=== PATIENT | male | born 1950 | race Caucasian/White ===

== ENCOUNTER → 2017-08-26 10:51 | Outpatient (CLI) | payer MEDICARE, OTHER, SELFPAY ==
[2017-08-26 12:47] LABS: Anion Gap 8 (5-15); BUN 17 mg/dL (7-18); BUN/Creat Ratio 16.5 RATIO (10-20); Calcium,Total 9.4 mg/dL (8.5-10.1); Chloride 105 mmol/L (98-107); Creatinine, Serum 1.03 mg/dL (0.70-1.30); EST Glomerular Filtration Rate 77 mL/min (>60); Est Glom Filt Rate - Afr Amer 93 mL/min (>60); Glucose 259 mg/dL (74-106); Potassium 4.2 mmol/L (3.5-5.1); Sodium Level 140 mmol/L (136-145)
[2017-08-26 13:37] LABS: BNP,B-Type NATRIURETIC PEPTIDE 13.6 pg/mL (0-100)
== END ==
PROVIDERS: Family Provider Family Medicine; PCP Family Medicine; Visit Provider Nurse Practitioner Family
DX: R06.02 Shortness of breath (principal); I25.5 Ischemic cardiomyopathy; Z98.61 Coronary angioplasty status
CPT/HCPCS: 36415; 80048; 83880

== ENCOUNTER → 2017-09-09 05:55 | Outpatient (CLI) | payer MEDICARE, OTHER, SELFPAY ==
--- NOTE | 2017-09-09 20:23 | STRESSREP ---
Stress Test Report Date: 09/09/2017 Procedure: Pharmacologic stress nuclear imaging study Indications: Shortness of breath/dyspnea; CAD; PA; PCI Consent: Per the patient Procedure: The patient underwent pharmacologic (Regadenoson) evaluation with a peak heart rate of 104 beats per minute (67 predicted maximal heart rate) and a peak blood pressure of 152/82 mmHg. The baseline ECG demonstrated normal sinus rhythm; possible anterior PA of indeterminate age. The peak pharmacologic ECG demonstrated no obvious ECG changes. There were no cardiac dysrhythmias pretest, during pharmacologic infusion, or recovery. There was no complaint of chest discomfort during pharmacologic infusion or recovery. The examination was discontinued secondary to completion of protocol. Impression: 1. Pharmacologic (Regadenoson) evaluation 2. Peak pharmacologic ECG with no obvious ECG changes. 3. There were no cardiac dysrhythmias pretest, during pharmacologic infusion, or recovery 4. Nuclear images pending Myocardial perfusion imaging study: Technique: The patient was injected with 14.7 millicuries of technetium 99m Cardiolite and subsequently rest SPECT Cardiolite nuclear imaging was obtained in the horizontal long, vertical long, and short axis views. The patient underwent pharmacologic (Regadenoson) evaluation with a peak heart rate of 104 beats per minute (67 % percent predicted maximal heart rate) and a peak blood pressure of 152/82 mmHg. The patient was injected with 44.9 millicuries of technetium 99m Cardiolite and subsequently stress SPECT Cardiolite nuclear imaging was obtained in the horizontal long, vertical long, and short axis views. A gated Cardiolite study at peak stress was obtained. Interpretation: Rest and stress SPECT Cardiolite nuclear imaging status post realignment, normalization, and attenuation correction demonstrate the appearance of diminished absence of myocardial perfusion/tracer uptake in portions of the mid to distal anterior, mid to distal anteroseptal, anteroapical, septal apical, and lateral apical segments without significant change between rest and stress. There is diminished end systolic thickening and brightening in the aforementioned areas. The gated Cardiolite study demonstrates diminished myocardial thickening and inward wall motion in the aforementioned areas. The reported LVEF is 36 %. Impression: 1. Rest and stress SPECT Cardiolite nuclear imaging demonstrate myocardial perfusion changes compatible with an area of previous myocardial injury/infarction with no myocardial perfusion changes consider diagnostic for associated stress-induced myocardial ischemia. 2. The gated Cardiolite study reports an LVEF of 36%. This note was generated with [employer] software. It may contain incorrect words, spelling, and punctuation that were not noted in checking the note before signing.
--- NOTE | 2017-09-09 20:31 | STRESSREP_ITS ---
Stress Test Report Date: 09/09/2017 Procedure: Pharmacologic stress nuclear imaging study Indications: Shortness of breath/dyspnea; CAD; RI; PCI Consent: Per the patient Procedure: The patient underwent pharmacologic (Regadenoson) evaluation with a peak heart rate of 104 beats per minute (67 predicted maximal heart rate) and a peak blood pressure of 152/82 mmHg. The baseline ECG demonstrated normal sinus rhythm; possible anterior RI of indeterminate age. The peak pharmacologic ECG demonstrated no obvious ECG changes. There were no cardiac dysrhythmias pretest, during pharmacologic infusion, or recovery. There was no complaint of chest discomfort during pharmacologic infusion or recovery. The examination was discontinued secondary to completion of protocol. Impression: 1. Pharmacologic (Regadenoson) evaluation 2. Peak pharmacologic ECG with no obvious ECG changes. 3. There were no cardiac dysrhythmias pretest, during pharmacologic infusion, or recovery 4. Nuclear images pending Myocardial perfusion imaging study: Technique: The patient was injected with 14.7 millicuries of technetium 99m Cardiolite and subsequently rest SPECT Cardiolite nuclear imaging was obtained in the horizontal long, vertical long, and short axis views. The patient underwent pharmacologic (Regadenoson) evaluation with a peak heart rate of 104 beats per minute (67 % percent predicted maximal heart rate) and a peak blood pressure of 152/82 mmHg. The patient was injected with 44.9 millicuries of technetium 99m Cardiolite and subsequently stress SPECT Cardiolite nuclear imaging was obtained in the horizontal long, vertical long, and short axis views. A gated Cardiolite study at peak stress was obtained. Interpretation: Rest and stress SPECT Cardiolite nuclear imaging status post realignment, normalization, and attenuation correction demonstrate the appearance of diminished absence of myocardial perfusion/tracer uptake in portions of the mid to distal anterior, mid to distal anteroseptal, anteroapical, septal apical, and lateral apical segments without significant change between rest and stress. There is diminished end systolic thickening and brightening in the aforementioned areas. The gated Cardiolite study demonstrates diminished myocardial thickening and inward wall motion in the aforementioned areas. The reported LVEF is 36 %. Impression: 1. Rest and stress SPECT Cardiolite nuclear imaging demonstrate myocardial perfusion changes compatible with an area of previous myocardial injury/ infarction with no myocardial perfusion changes consider diagnostic for associated stress-induced myocardial ischemia. 2. The gated Cardiolite study reports an LVEF of 36%. This note was generated with [employer] netation software. It may contain incorrect words, spelling, and punctuation that were not noted in checking the note before signing.
== END ==
PROVIDERS: Family Provider Family Medicine; PCP Family Medicine; Visit Provider Nurse Practitioner Family
DX: I25.5 Ischemic cardiomyopathy (principal); R06.02 Shortness of breath; Z98.61 Coronary angioplasty status
CPT/HCPCS: 78452; 93017; A9500; A4216; J2785

== ENCOUNTER → 2017-09-17 08:57 | Outpatient (CLI) | payer MEDICARE, OTHER, SELFPAY ==
--- NOTE | 2017-09-17 08:57 | DT_ITS ---
This patient was seen during an EMR downtime September 15, 2017 - September 22, 2017. This patient may have a combination of paper and electronic documentation or all paper documentation. All documentation is viewable within the e-chart portion of [facility] for each patient visit.
--- NOTE | 2017-09-17 08:57 | DT_ITS ---
This patient was seen during an EMR downtime September 15, 2017 - September 22, 2017. This patient may have a combination of paper and electronic documentation or all paper documentation. All documentation is viewable within the e-chart portion of [facility] for each patient visit.
[2017-09-22 04:15] LABS: Basophil% 0.4 % (0-1); Eosinophils% 3.9 % (0-5); Hematocrit 42.8 % (40-54); Hemoglobin 14.6 g/dl (13.0-16.5); Lymphocyte % 18.5 % (19-41); Mean Corp Hgb Conc 34.1 g/gl (32-36); Mean Corpuscular Hgb 29.6 pg (27.0-32.0); Mean Corpuscular Volume 86.6 fL (80-94); Mean Platelet Vol. 10.2 fl (6.2-12.0); Monocyte% 15.8 % (0-10); Neutrophil % 61.3 % (47-70); POSITIVE COUNT NO; POSITIVE DIFFERENTIAL NO; POSITIVE MORPHOLOGY NO; Platelet Count 232 K/mm3 (150-450); RBC Distribution Width SD 43.9 fl (35.1-43.9); Red Blood Count 4.94 M/mm3 (4.6-6.2); White Blood Count 7.4 K/mm3 (4.4-11.0)
[2017-09-22 04:16] LABS: Absolute Lymphocyte Count 1.36 X10^3/ul (0.83-4.51); Absolute Neutrophil Count 4.5 X10^3/uL (2.0-7.7); Lymphocyte # 1.36 X10^3/ul (4.0)
[2017-09-22 08:18] LABS: Hemoglobin A1c 8.5 % (4.2-6.3)
[2017-09-22 08:22] LABS: Microalbumin,Random Urine 76.3 mg/L (NO RANGE EST.)
[2017-09-22 08:23] LABS: AST(SGOT) 20 U/L (15-37); Alanine Aminotransfer ALT/SGPT 43 U/L (16-61); Albumin, Serum 3.5 g/dL (3.2-5.0); Alkaline Phosphatase 103 U/L (45-117); Anion Gap 9 (5-15); BUN 16 mg/dL (7-18); BUN/Creat Ratio 16.5 RATIO (10-20); Calcium,Total 8.7 mg/dL (8.5-10.1); Chloride 106 mmol/L (98-107); Cholesterol 91 mg/dL (200); Creatinine, Serum 0.97 mg/dL (0.70-1.30); EST Glomerular Filtration Rate 82 mL/min (>60); Est Glom Filt Rate - Afr Amer 99 mL/min (>60); Globulin 3.5 g/dL (2.2-4.2); Glucose 118 mg/dL (74-106); Potassium 3.9 mmol/L (3.5-5.1); Sodium Level 143 mmol/L (136-145); Triglycerides 159 mg/dL; Very Low Density Lipoprotein 32 mg/dL (5-40)
[2017-09-22 08:24] LABS: High Density Lipoprotein 27 mg/dL
== END ==
PROVIDERS: Family Provider Family Medicine; PCP Family Medicine; Visit Provider Family Medicine
DX: E11.29 Type 2 diabetes mellitus with other diabetic kidney complication (principal); E78.5 Hyperlipidemia, unspecified
CPT/HCPCS: 36415; 80053; 80061; 82043; 82570; 83036; 85025

== ENCOUNTER → 2018-04-02 10:44 | Outpatient (CLI) | payer MEDICARE, OTHER, SELFPAY ==
[2018-03-26 11:35] VITALS: BMI 39.3
--- NOTE | 2018-04-02 10:46 | ECHOCS_ITS ---
Reason For Study: dyspnea/SOB Procedure This was a 2D Doppler, Color Flow transthoracic echocardiogram. The study was technically difficult. Contrast injection was performed. Left Ventricle Normal LV size. Mild segmental systolic dysfunction (see wall motion). The estimated ejection fraction is 40 %. Mid-Anterior : Hypokinetic. Mid-Lateral : Hypokinetic. Mid-Posterior: Hypokinetic. Mid-Inferior: Hypokinetic. Mid-inferoseptal : Akinetic. Mid-anteroseptal : Hypokinetic. [place] : Akinetic. Right Ventricle Normal RV size. Normal systolic function. Atria The left atrium is mildly enlarged. Normal right atrium. No doppler evidence for ASD. Mitral Valve There is mild mitral annular calcification. Normal mitral valve. Trivial mitral valve insufficiency. Tricuspid Valve Normal tricuspid valve. Trivial tricuspid valve insufficiency. Unable to estimate RV systolic pressure/pulmonary artery pressure due to technically difficult study. Aortic Valve Trisinus/trileaflet aortic valve. Mild diffuse aortic valve calcification. Pulmonic Valve The pulmonic valve is not well visualized. Great Vessels Normal sized aortic root. Pericardium/Pleural No pericardial effusion. Medication 22 gauge I.V. with prn adaptor inserted into left arm. Diluted definity 3.0ml given slow IV push to enhance endocardial definition. MMode/2D Measurements & Calculations LVIDd: 5.2 cm IVSd: 1.4 cm Ao root diam: 3.5 cm LVIDs: 4.1 cm LVPWd: 1.1 cm RVDd: 4.3 cm FS: 21.0 % LAV(MOD-bp): 77.5 ml LA A4 area: 23.4 cm2 LA dimension(2D): 4.5 cm LAV(MOD-bp) Indexed: 32.5 ml/m2 LAV(MOD-sp2): 75.4 ml LAV(MOD-sp4): 77.9 ml RA A4 area: 20.7 cm2 Time Measurements MV dec time: 0.22 sec Doppler Measurements & Calculations MV E max yuri: 126.7 cm/sec Lat Peak E' Yuri: 7.9 cm/sec Med Peak E' Yuri: 8.1 cm/sec MV A max yuri: 96.2 cm/sec E/E' lat: 16.0 E/E' med: 15.7 MV E/A: 1.3 Ao V2 max: 207.5 cm/sec LV V1 max: 135.8 cm/sec PA V2 max: 103.8 cm/sec Ao max P.2 mmHg LV V1 max P.4 mmHg Ao V2 mean: 151.2 cm/sec LV V1 mean P.0 mmHg Ao mean P.1 mmHg LV V1 mean: 94.6 cm/sec Ao V2 VTI: 42.2 cm LV V1 VTI: 27.2 cm Interpretation Summary The study was technically difficult. Contrast injection was performed. Mild segmental systolic dysfunction (see wall motion). The estimated ejection fraction is 40 %. The left atrium is mildly enlarged. There is mild mitral annular calcification. Trivial mitral valve insufficiency. Trivial tricuspid valve insufficiency. Mild diffuse aortic valve calcification. Unable to estimate RV systolic pressure/pulmonary artery pressure due to technically difficult study. Transmitral diastolic flow velocities suggest diastolic dysfunction (pseudonormal pattern). Ordering Physician: Jaspreet Rubalcava Referring Physician: Mau Tovar Performed By: Mariia Diana RDCS, RVT
== END ==
PROVIDERS: Family Provider Family Medicine; PCP Family Medicine; Referring Provider Internal Medicine Cardiovascular Disease; Visit Provider Internal Medicine Cardiovascular Disease
DX: I50.22 Chronic systolic (congestive) heart failure (principal)
CPT/HCPCS: 93306; Q9957; A4216; C8929

== ENCOUNTER → 2018-09-24 10:32 | Outpatient (CLI) | payer MEDICARE, OTHER, SELFPAY ==
[2018-03-26 11:35] VITALS: BMI 39.3
[2018-09-24 12:03] LABS: Absolute Lymphocyte Count 1.11 X10^3/ul (0.83-4.51); Absolute Neutrophil Count 3.2 X10^3/uL (2.0-7.7); Basophil# 0.02 X10^3/uL; Basophil% 0.4 % (0-1); Eosinophil# 0.22 X10^3/uL; Eosinophils% 4.5 % (0-5); Hematocrit 43.4 % (40-54); Hemoglobin 14.8 g/dl (13.0-16.5); Lymphocyte # 1.11 X10^3/ul (4.0); Lymphocyte % 22.7 % (19-41); Mean Corp Hgb Conc 34.1 g/gl (32-36); Mean Corpuscular Hgb 28.5 pg (27.0-32.0); Mean Corpuscular Volume 83.6 fL (80-94); Mean Platelet Vol. 10.8 fl (6.2-12.0); Monocyte# 0.36 X10^3/uL; Monocyte% 7.4 % (0-10); Neutrophil # 3.16 X10^3/uL (2.7-7.7); Neutrophil % 64.8 % (47-70); Platelet Count 236 K/mm3 (150-450); RBC Distribution Width CV 13.6 % (11.6-14.6); Red Blood Count 5.19 M/mm3 (4.6-6.2); White Blood Count 4.9 K/mm3 (4.4-11.0)
[2018-09-24 12:18] LABS: POSITIVE COUNT NO; POSITIVE DIFFERENTIAL NO; POSITIVE MORPHOLOGY NO
[2018-09-24 12:19] LABS: Microalbumin,Random Urine 46.2 mg/L (NO RANGE EST.); Microalbumin:Creatinine Ratio 34.5 mg/g CRE (<30 mg/g CRE)
[2018-09-24 12:42] LABS: ALB/GLOB Ratio 1.2 RATIO (0.9-2.4); AST(SGOT) 17 U/L (15-37); Alanine Aminotransfer ALT/SGPT 37 U/L (16-61); Albumin, Serum 3.8 g/dL (3.2-5.0); Alkaline Phosphatase 123 U/L (45-117); Anion Gap 4 (5-15); BUN 18 mg/dL (7-18); BUN/Creat Ratio 18.1 RATIO (10-20); Calcium,Total 9.3 mg/dL (8.5-10.1); Chloride 106 mmol/L (98-107); Cholesterol 96 mg/dL (200); EST Glomerular Filtration Rate 79 mL/min (>60); Est Glom Filt Rate - Afr Amer 96 mL/min (>60); Globulin 3.2 g/dL (2.2-4.2); Glucose 244 mg/dL (74-106); High Density Lipoprotein 26 mg/dL; PSA,Total - Annual Screen 7.56 ng/mL (0.00-4.00); Potassium 3.7 mmol/L (3.5-5.1); Sodium Level 137 mmol/L (136-145); Triglycerides 150 mg/dL; Very Low Density Lipoprotein 30 mg/dL (5-40)
[2018-09-24 13:05] LABS: Hemoglobin A1c 9.1 % (4.2-6.3)
== END ==
PROVIDERS: Family Provider Family Medicine; PCP Family Medicine; Referring Provider Family Medicine; Visit Provider Family Medicine
DX: E11.3299 Type 2 diabetes mellitus with mild nonproliferative diabetic retinopathy without macular edema, unspecified eye (principal); E11.65 Type 2 diabetes mellitus with hyperglycemia; I25.10 Atherosclerotic heart disease of native coronary artery without angina pectoris; Z12.5 Encounter for screening for malignant neoplasm of prostate
CPT/HCPCS: 36415; 80053; 80061; 82043; 82570; 83036; 84153; 85025; G0103

== ENCOUNTER → 2018-10-01 15:25 | Outpatient (CLI) | payer MEDICARE, OTHER, SELFPAY ==
[2018-10-01 11:16] VITALS: BMI 39.3
--- NOTE | 2018-10-01 15:29 | RAD_ITS ---
HISTORY: left lumbar radiculopathy, mostly when in the sitting position TECHNIQUE: Lumbar spine 5 views Number of images including paperwork: 5 COMPARISON: None FINDINGS: VERTEBRAE: No acute fracture. VERTEBRAL ALIGNMENT: No traumatic subluxation. DISKS AND JOINTS: No significant discogenic degenerative changes. Facet arthropathy. SOFT TISSUES: Unremarkable paraspinous soft tissues. Multiple right renal calculi measuring up to 13 mm in size. Possible left renal calculi. RAD/L/S Spine Min 4 Views IMPRESSION: 1. No acute osseous abnormality. 2. Degenerative changes. 3. Renal calculi. at 0751 Reported and signed by: Pati Adrian MD Electronically Signed: Pati Adrian MD at 7:51 EDT Tel , Service support ,
== END ==
PROVIDERS: Family Provider Family Medicine; PCP Family Medicine; Referring Provider Family Medicine; Visit Provider Family Medicine
DX: M54.16 Radiculopathy, lumbar region (principal)
CPT/HCPCS: 72110

== ENCOUNTER → 2019-02-12 15:45 | Outpatient (CLI) | payer MEDICARE, OTHER, SELFPAY ==
[2018-10-01 11:16] VITALS: BMI 39.3
--- NOTE | 2019-02-12 15:50 | RAD_ITS ---
STUDY: X-RAY - LEFT ANKLE REASON FOR EXAM: Male, 68 years old. Injury. Pain. TECHNIQUE: 3 view(s) of the ankle. COMPARISON: None. FINDINGS: There is no evidence of fracture or dislocation. There are mild degenerative changes. There are no radiodense foreign bodies. RAD/Ankle min 3 Views IMPRESSION: No fracture or dislocation in the left ankle. Mild degenerative change. Electronically Signed: Kavon Mcmahon, at 16:03 EDT Tel , Service support ,
== END ==
PROVIDERS: Family Provider Family Medicine; PCP Family Medicine; Referring Provider Family Medicine; Visit Provider Family Medicine
DX: M25.572 Pain in left ankle and joints of left foot (principal)
CPT/HCPCS: 73610

== ENCOUNTER → 2019-11-23 08:33 | Outpatient (CLI) | payer MEDICARE, OTHER, SELFPAY ==
[2019-09-30 14:27] VITALS: BMI 39.9
[2019-11-23 10:11] LABS: AST(SGOT) 21 U/L (15-37); Alanine Aminotransfer ALT/SGPT 48 U/L (16-61); Albumin, Serum 3.4 g/dL (3.2-5.0); Alkaline Phosphatase 139 U/L (45-117); Bilirubin, Direct 0.15 mg/dL (0.00-0.30); Cholesterol 101 mg/dL (200); Globulin 3.5 g/dL (2.2-4.2); High Density Lipoprotein 26 mg/dL; Protein, Total 6.9 g/dL (6.4-8.2); Triglycerides 110 mg/dL; Very Low Density Lipoprotein 22 mg/dL (5-40)
== END ==
PROVIDERS: PCP Family Medicine; Referring Provider Internal Medicine Cardiovascular Disease; Visit Provider Internal Medicine Cardiovascular Disease
DX: E78.00 Pure hypercholesterolemia, unspecified (principal)
CPT/HCPCS: 36415; 80061; 80076

== ENCOUNTER 2019-11-25 15:13 | Emergency (ER) | payer MEDICARE, OTHER, SELFPAY ==
[2019-09-30 14:27] VITALS: BMI 39.9
[2019-11-25 15:16] VITALS: BP 145/80; PULSE 83; RESP 18; TEMP 36.4; O2SAT 96; BMI 41.3
--- NOTE | 2019-11-25 16:06 | RAD_ITS ---
STUDY: X-RAY CHEST REASON FOR EXAM: Male, 69 years old. ANXIETY, SWEATING. PREVIOUS [place]. LOW BLOOD SUGAR THIS MORNING. TECHNIQUE: 1 view COMPARISON: Prior chest radiograph of 03/21/2015 FINDINGS: The lungs are clear and expanded. There is no demonstrated pleural abnormality. Normal size heart. Normal mediastinum and fanta. Normal visualized pulmonary arteries. Normal visualized aortic arch and descending thoracic aorta. Normal visualized thoracic spine. Normal visualized ribs, clavicles, and shoulders. There is no demonstrated abnormality of the visualized soft tissue structures of the upper abdomen. RAD/Chest 1 View (Portable) IMPRESSION: No acute cardiopulmonary findings or changes. Negative for new consolidation, focal atelectasis, cardiomegaly or pleural effusion. Electronically Signed: Mojgan Alex MD at 16:39 EDT , Service support ,
--- NOTE | 2019-11-25 16:06 | EKG12_ITS ---
Test Reason : CP Blood Pressure : / mmHG Vent. Rate : 079 BPM Atrial Rate : 079 BPM P-R Int : 210 ms QRS Dur : 084 ms QT Int : 366 ms P-R-T Axes : 040 020 051 degrees QTc Int : 419 ms Sinus rhythm with 1st degree A-V block Low voltage QRS Septal infarct (cited on or before 01-JUN-2012) Abnormal ECG Confirmed by TERESA CALDERON ([id number]), graphic editor ANA LANGLEY ([id number]) on 11/29/2019 2:11:11 PM Referred By: EVELIN Confirmed By:TERESA CALDERON
--- NOTE | 2019-11-25 16:30 | ED.VIS.GEN ---
History of Present Illness Chief Complaint: Chest Other Informant: Patient Narrative: Patient is a 69-year-old male who presents to the emergency department for anxiety and diaphoresis. Started earlier this morning. He states the only other time he had this happen was when he had his previous heart attack 14 years ago. He states he has had multiple stents placed. He does have history of diabetes and thought maybe his blood sugar was low and was in the 50s. His symptoms persisted despite eating so he was concerned and came to the ED. He denies any chest pain, shortness of breath or heart palpitations. Denies any leg swelling or calf pain. No abdominal pain or nausea/vomiting. He denies any recent illnesses including any cough, cold, congestion. No fevers or chills. Denies a smoking history. Past Medical History - Allergies and Home Meds Allergies/Adverse Reactions: Allergies No Known Allergies Allergy (Verified 11/25/19 15:14) Primary Care Physician: Mau Tovar DO [Primary Care Provider] - As soon as possible Prior records reviewed: Yes Past Medical History: - - CAD, hypertension, hyperlipidemia, diabetes Surgical History: angioplasty - With stenting ?2 events: Total of 8 stents, - - Laser treatment to retinal bleed due to diabetic retinopathy Smoking Status: Never smoker - Family History Paternal Family History: Family History (Last Reviewed 09/30/19 @ 14:30 by Fany Arciniega) Father Myocardial infarction Family History: Reports: Heart Disease Maternal Family History: Family History (Last Reviewed 09/30/19 @ 14:30 by Fany Arciniega) Father Myocardial infarction Family History: Reports: No pertinent history Review of Systems All systems negative except as indicated General: Reports: Sweats. Denies: Chills, Fever Eyes: Denies: Visual changes - bilaterally, Diplopia ENT: Denies: Rhinorrhea, Sore throat Cardiovascular: Denies: Chest pain, Palpitations Respiratory: Denies: Dyspnea, Cough, Dyspnea on exertion Gastrointestinal: Denies: Abdominal pain, Nausea, Vomiting, Diarrhea Genitourinary: Denies: Dysuria, Hematuria, Frequency Musculoskeletal: Denies: Back pain, Extremity Pain Skin: Denies: Rash, Wounds Neurological: Denies: Headache, Weakness, Numbness Psych: Reports: Anxiety Physical Exam Vital Signs/Narrative: Vital Signs Temp Pulse Resp BP Pulse Ox 11/25/19 15:16 97.6 F L 83 18 145/80 H 96 Inital Vital Signs reviewed: Yes General: Well nourished, Well developed, No Acute Distress Head: Normocephalic, Atraumatic Eyes: Perrl, EOMI ENT: Moist mucous membranes, No rhinorrhea Neck: Supple, Nontender Cardiovascular: Regular rate, Regular rhythm, No murmurs Respiratory: No distress, CTA bilaterally, Chest nontender Abdomen: Soft, Nontender, Nondistended, Normal bowel sounds Back: Nontender, Normal Inspection Extremities: Nontender, Edema - Trace bilateral. Negative for: Calf Tenderness Skin: Normal color, No rash Neurological: Alert, Oriented x3, Cranial nerves II-XII grossly intact, Normal Strength, Normal Sensation Psychological: Normal affect, Normal Mood Diagnostic/Tx/Re-eval - EKG Initial EKG Interpretation: - - Rate of 79 bpm and normal sinus rhythm. [place] interval calculated 210 ms with a first-degree AV block. Otherwise normal intervals. Normal axis. No significant ST elevations or depressions. No T wave abnormalities. - Medical Decision Making Patient presents to the ED for anxiety and sweating. He was concerned as he had similar symptoms with a previous heart attack. Upon arrival to the ED vital signs within normal limits. He is in no acute distress. EKG obtained which did not show any signs of ischemia or arrhythmia. Will obtain basic lab work along with chest x-ray. Lab work did not reveal any significant acute abnormality. Initial troponin negative. X-ray does not show any acute cardiopulmonary abnormality. EKG did not show any signs of ischemia or arrhythmia. I did discuss all this with the patient. I did offer the patient hospitalization as he states that this is similar to his previous ND symptoms although he does not have any chest pain or shortness of breath. He is no longer diaphoretic. I believe that the first troponin would have caught a non-STEMI as a symptoms started many hours ago earlier this morning. Patient does feel like he wants to go home at this time as he believes it might just be anxiety related this time. He states he will come back to the ED if he develops any worsening or concerning symptoms. He is going to call his PCP today for close follow-up. I believe that he does warrant a stress test. I did advise patient to continue taking his aspirin. He understands and is agreeable this plan. Will discharge home in stable condition. ED Disposition - Plan for ED Patient: Disposition: Home or Assisted Living Diagnosis: Anxious reaction Instructions: ED Stress React Referrals: Mau Tovar DO [Primary Care Provider] - As soon as possible
[2019-11-25 16:34] LABS: Absolute Lymphocyte Count 1.13 X10^3/uL (0.83-4.51); Absolute Neutrophil Count 6.4 X10^3/uL (2.0-7.7); Basophil# 0.03 X10^3/uL; Basophil% 0.3 % (0-1); Eosinophils% 3.4 % (0-5); Hematocrit 43.3 % (40-54); Hemoglobin 14.2 g/dL (13.0-16.5); Lymphocyte # 1.13 X10^3/ul (4.0); Lymphocyte % 12.8 % (19-41); Mean Corp Hgb Conc 32.8 g/dL (32-36); Mean Corpuscular Volume 88.4 fL (80-94); Mean Platelet Vol. 10.4 fl (6.2-12.0); Monocyte# 0.88 X10^3/uL; NRBC Flagged by Analyzer 0 % (0-5); Neutrophil # 6.43 X10^3/uL (2.7-7.7); Neutrophil % 73.2 % (47-70); Platelet Count 253 K/mm3 (150-450); RBC Distribution Width CV 13.4 % (11.6-14.6); RBC Distribution Width SD 43.5 fl (35.1-43.9); White Blood Count 8.8 K/mm3 (4.4-11.0)
[2019-11-25 16:47] LABS: Anion Gap 3 (5-15); BUN 12 mg/dL (7-18); BUN/Creat Ratio 11.8 RATIO (10-20); Calcium,Total 9.6 mg/dL (8.5-10.1); Chloride 107 mmol/L (98-107); Creatinine, Serum 1.02 mg/dL (0.70-1.30); EST Glomerular Filtration Rate 77 mL/min (>60); Est Glom Filt Rate - Afr Amer 93 mL/min (>60); Estimated Creatinine Clearance 70.57 ml/min; Glucose 238 mg/dL (74-106); Potassium 4.6 mmol/L (3.5-5.1); Sodium Level 139 mmol/L (136-145)
[2019-11-25 17:26] VITALS: BP 137/78; PULSE 78; RESP 19
== END 2019-11-25 17:27 | disposition home or self-care (01) ==
PROVIDERS: Emergency Provider Emergency Medicine; PCP Family Medicine
DX: F41.9 Anxiety disorder, unspecified (principal); E78.5 Hyperlipidemia, unspecified; I10 Essential (primary) hypertension; I25.10 Atherosclerotic heart disease of native coronary artery without angina pectoris; I25.2 Old myocardial infarction; I44.0 Atrioventricular block, first degree; Z82.49 Family history of ischemic heart disease and other diseases of the circulatory system; E11.319 Type 2 diabetes mellitus with unspecified diabetic retinopathy without macular edema
CPT/HCPCS: 71045; 80048; 84484; 85025; 93005; 99285; A4216

== ENCOUNTER → 2020-01-18 06:47 | Outpatient (CLI) | payer MEDICARE, OTHER, SELFPAY ==
[2019-12-29 15:35] VITALS: BMI 39.9
--- NOTE | 2020-01-18 06:49 | ECHOCS_ITS ---
Reason For Study: CAD/ASHD Procedure This was a 2D Doppler, Color Flow transthoracic echocardiogram. The study was technically difficult. Contrast injection was performed. Exam performed in department. Left Ventricle Mild segmental systolic dysfunction (see wall motion). The estimated ejection fraction is 45 %. Diastolic function is indeterminate. Mid-Anterior : Hypokinetic. Mid-Lateral : Hypokinetic. Mid- Posterior: Hypokinetic. Mid-Inferior: Hypokinetic. Mid-inferoseptal : Akinetic. Mid-anteroseptal : Akinetic. Anterior [place] : Hypokinetic. Inferior [place] : Akinetic. Lateral [place] : Hypokinetic. Septal [place] : Akinetic. Right Ventricle Normal RV size. Normal systolic function. Atria The left atrium is mildly enlarged. Normal right atrium. No doppler evidence for ASD. Mitral Valve There is mild mitral annular calcification. Normal mitral valve. Mild (1+) eccentric mitral valve insufficiency. Tricuspid Valve Normal tricuspid valve. Trivial tricuspid valve insufficiency. Unable to estimate RV systolic pressure/pulmonary artery pressure due to technically difficult study. Aortic Valve Trisinus/trileaflet aortic valve. Mild diffuse aortic valve calcification. Mild aortic stenosis. Pulmonic Valve The pulmonic valve is not well visualized. Great Vessels Normal sized aortic root. Calcified aortic root. Pericardium/Pleural No pericardial effusion. Medication 22 gauge I.V. with prn adaptor inserted into left arm. Diluted definity 4ml given slow IV push to enhance endocardial definition. MMode/2D Measurements & Calculations LVOT diam: 2.0 cm Ao root diam: 3.4 cm LAV(MOD-bp): 71.4 ml LA dimension: 4.2 cm LVOT area: 3.3 cm2 LAV(MOD-bp) Indexed: 29.7 ml/m2 LAV(MOD-sp2): 66.9 ml LAV(MOD-sp4): 71.3 ml SV(MOD-sp4): 106.3 ml SV(sp4-el): 111.7 ml LVAd ap4: 48.0 cm2 EDV(MOD-sp4): 210.5 ml EDV(sp4-el): 218.6 ml LVAs ap4: 30.7 cm2 ESV(MOD-sp4): 104.2 ml ESV(sp4-el): 106.9 ml EF(MOD-sp4): 50.5 % EF(sp4-el): 51.1 % LA A4 area: 22.7 cm2 RA A4 area: 20.8 cm2 Time Measurements MV dec time: 0.22 sec Doppler Measurements & Calculations MV E max yuri: 118.5 cm/sec Lat Peak E' Yuri: 6.7 cm/sec Med Peak E' Yuri: 7.3 cm/sec MV A max yuri: 68.7 cm/sec E/E' lat: 17.6 E/E' med: 16.2 MV E/A: 1.7 MV V2 max: 128.8 cm/sec MV P1/2t max yuri: 129.4 cm/sec Ao V2 max: 186.6 cm/sec MV max P.6 mmHg MV P1/2t: 68.8 msec Ao max P.9 mmHg MV V2 mean: 70.0 cm/sec MV dec slope: 550.7 cm/sec2 Ao V2 mean: 124.2 cm/sec MV mean P.4 mmHg Ao mean P.1 mmHg MV V2 VTI: 35.5 cm MVA(P1/2t): 3.2 cm2 Ao V2 VTI: 36.2 cm MVA(VTI): 2.1 cm2 EMILIA(I,D): 2.1 cm2 EMILIA(V,D): 1.8 cm2 LV V1 max: 105.1 cm/sec SV(LVOT): 76.2 ml PA V2 max: 100.2 cm/sec LV V1 max P.4 mmHg LV V1 mean P.1 mmHg LV V1 mean: 66.0 cm/sec LV V1 VTI: 23.4 cm Interpretation Summary The study was technically difficult. Contrast injection was performed. Mild segmental systolic dysfunction (see wall motion). The estimated ejection fraction is 45 %. The left atrium is mildly enlarged. There is mild mitral annular calcification. Mild (1+) eccentric mitral valve insufficiency. Trivial tricuspid valve insufficiency. Mild aortic stenosis. Calcified aortic root. Unable to estimate RV systolic pressure/pulmonary artery pressure due to technically difficult study. Diastolic function is indeterminate. Ordering Physician: Jaspreet Rubalcava Referring Physician: Mau Tovar Performed By: Moe Soto RCS
== END ==
PROVIDERS: PCP Family Medicine; Referring Provider Internal Medicine Cardiovascular Disease; Visit Provider Internal Medicine Cardiovascular Disease
DX: I25.10 Atherosclerotic heart disease of native coronary artery without angina pectoris (principal); I50.22 Chronic systolic (congestive) heart failure; I25.5 Ischemic cardiomyopathy; Z95.5 Presence of coronary angioplasty implant and graft; I11.0 Hypertensive heart disease with heart failure; E78.00 Pure hypercholesterolemia, unspecified
CPT/HCPCS: 93306; Q9957; A4216; C8929; J2785

== ENCOUNTER → 2020-02-04 06:48 | Outpatient (CLI) | payer MEDICARE, OTHER, SELFPAY ==
[2019-12-29 15:35] VITALS: BMI 39.9
--- NOTE | 2020-02-04 11:11 | STRESSREP_ITS ---
Stress Test Report Date: 02-04-2020 Procedure: Pharmacologic stress nuclear imaging study Indications: Chest pain; CAD; PCI; ischemic mediated cardiomyopathy; CHF Consent: Per the patient Procedure: The patient underwent pharmacologic (Regadenoson) evaluation with a peak heart rate of 109 beats per minute (72%predicted maximal heart rate) and a peak blood pressure of 128/78 mmHg. The baseline ECG demonstrated normal sinus rhythm; septal DE of indeterminate age cannot be excluded. The peak pharmacologic ECG demonstrated no obvious ECG changes. There were no cardiac dysrhythmias pretest, during pharmacologic infusion, or recovery. There was no complaint of chest discomfort during pharmacologic infusion or recovery. The examination was discontinued secondary to completion of protocol. Impression: 1. Pharmacologic (Regadenoson) evaluation 2. Peak pharmacologic ECG with no obvious ECG changes. 3. There were no cardiac dysrhythmias pretest, during pharmacologic infusion, or recovery. 4. Nuclear images pending Myocardial perfusion imaging study: Technique: The patient was injected with 15.0 millicuries of technetium 99m Cardiolite and subsequently rest SPECT Cardiolite nuclear imaging was obtained in the horizontal long, vertical long, and short axis views. The patient underwent pharmacologic (Regadenoson) evaluation with a peak heart rate of 109 beats per minute (72% percent predicted maximal heart rate) and a peak blood pressure of 128/78 mmHg. The patient was injected with 45.0 millicuries of technetium 99m Cardiolite and subsequently stress SPECT Cardiolite nuclear imaging was obtained in the horizontal long, vertical long, and short axis views. A gated Cardiolite study at peak stress was obtained. Interpretation: Rest and stress SPECT Cardiolite nuclear imaging status post realignment and normalization demonstrate the appearance of diminished absence of tracer uptake in portions of the mid to distal anterior, anteroapical, anteroseptal/inferoseptal, and inferior apical segments without obvious change between rest and stress. There is diminished end systolic thickening and brightening. The gated Cardiolite study demonstrates diminished myocardial thickening and inward wall motion. The reported LVEF is 34%. Impression: 1. Rest and stress SPECT during nuclear imaging demonstrate myocardial perf usion changes appearing compatible with areas of previous myocardial injury/infarction with no myocardial perfusion changes considered diagnostic for associated stress-induced myocardial ischemia. 2. The gated Cardiolite study reports an LVEF of 34%. This note was generated with Dragon dictation software. It may contain incorrect words, spelling, and punctuation that were not noted in checking the note before signing.
== END ==
PROVIDERS: PCP Family Medicine; Referring Provider Internal Medicine Cardiovascular Disease; Visit Provider Internal Medicine Cardiovascular Disease
DX: R07.9 Chest pain, unspecified (principal); I25.10 Atherosclerotic heart disease of native coronary artery without angina pectoris; I10 Essential (primary) hypertension; I25.5 Ischemic cardiomyopathy; I50.22 Chronic systolic (congestive) heart failure; E78.5 Hyperlipidemia, unspecified; Z95.5 Presence of coronary angioplasty implant and graft
CPT/HCPCS: 78452; 93017; A9500; A4216; J2785

== ENCOUNTER → 2020-05-11 11:45 | Outpatient (CLI) | payer MEDICARE, OTHER, SELFPAY ==
[2019-12-29 15:35] VITALS: BMI 39.9
== END ==
PROVIDERS: PCP Family Medicine; Visit Provider Family Medicine
DX: Z12.5 Encounter for screening for malignant neoplasm of prostate (principal)
CPT/HCPCS: 36415; 84153; G0103

== ENCOUNTER → 2020-05-29 08:57 | Outpatient (CLI) | payer MEDICARE, OTHER, SELFPAY ==
[2019-12-29 15:35] VITALS: BMI 39.9
[2020-05-29 10:20] LABS: AST(SGOT) 24 U/L (15-37); Alanine Aminotransfer ALT/SGPT 47 U/L (16-61); Albumin, Serum 3.9 g/dL (3.2-5.0); Alkaline Phosphatase 153 U/L (45-117); Bilirubin, Direct 0.09 mg/dL (0.00-0.30); Cholesterol 122 mg/dL (200); Globulin 3.6 g/dL (2.2-4.2); High Density Lipoprotein 34 mg/dL; Protein, Total 7.5 g/dL (6.4-8.2); Triglycerides 150 mg/dL; Very Low Density Lipoprotein 30 mg/dL (5-40)
== END ==
PROVIDERS: Internal Medicine Cardiovascular Disease; PCP Family Medicine; Referring Provider Nurse Practitioner Adult Health; Visit Provider Nurse Practitioner Adult Health
DX: R97.20 Elevated prostate specific antigen [PSA] (principal); E78.00 Pure hypercholesterolemia, unspecified; E78.5 Hyperlipidemia, unspecified
CPT/HCPCS: 36415; 80061; 80076; 84153

== ENCOUNTER 2020-06-20 09:34 | Outpatient (RCR) | payer MEDICARE, SELFPAY ==
[2020-06-01 13:04] VITALS: BMI 39.0
[2020-06-20] MEDS: COVID-19 VACC, MRNA(PFIZER)/PF 30 MCG/0.3 ML SYRINGE IM (17:01)
[2020-07-11] MEDS: COVID-19 VACC, MRNA(PFIZER)/PF 30 MCG/0.3 ML SYRINGE IM (16:33)
== END 2020-09-19 23:59 ==
LOC: IMMUN 09:34
PROVIDERS: PCP Family Medicine; Referring Provider Family Medicine; Visit Provider Family Medicine
DX: Z23 Encounter for immunization (principal)
CPT/HCPCS: 0001A; 0002A; 91300

== ENCOUNTER → 2020-09-14 11:03 | Outpatient (CLI) | payer MEDICARE, OTHER, SELFPAY ==
[2020-06-01 13:04] VITALS: BMI 39.0
[2020-09-14 12:59] LABS: PSA,Total- Diagnostic 7.55 ng/mL (0.0-4.0)
== END ==
PROVIDERS: PCP Family Medicine; Referring Provider Urology; Visit Provider Urology
DX: R97.20 Elevated prostate specific antigen [PSA] (principal)
CPT/HCPCS: 36415; 84153

== ENCOUNTER → 2020-09-21 14:55 | Outpatient (CLI) | payer MEDICARE, OTHER, SELFPAY ==
[2020-06-01 13:04] VITALS: BMI 39.0
--- NOTE | 2020-09-21 14:58 | CT_ITS ---
STUDY: CT ABDOMEN AND PELVIS WITH AND WITHOUT CONTRAST REASON FOR EXAM: Male, 70 years old. BENIGN PROSTATIC HYPERPLASIA W/LOWER URINARY TRACT SYMPTOMS RADIATION DOSAGE (If Supplied By Facility): CTDIvol = ( 29.03 ) mGy, DLP = ( 4102.99 ) mGycm TECHNIQUE: Transaxial images were obtained from the dome of the diaphragm to the symphysis pubis without oral contrast. IV 100mL Isovue-300 was administered. Sagittal and coronal images were reconstructed. Individualized dose optimization techniques were used for this CT. COMPARISON: 05/05/2012 FINDINGS: Visualized lung bases clear. Diffuse hepatic steatosis. Unremarkable spleen, pancreas, and adrenals. Multiple bilateral nonobstructing renal stones measuring up to 1.4 cm in the lower pole of the left kidney. No radiopaque stone in the bilateral ureters. Small cortical hypodensities in the bilateral kidneys measuring up to 1.8 cm. These are likely simple cysts. No definite cholelithiasis. Normal appendix. Bowel loops nonobstructed. A few distal colonic diverticula. No acute diverticulitis. Vascular calcification with no abdominal aortic aneurysm. No free air or free fluid. No abdominal or pelvic adenopathy. Sections through the pelvis demonstrate an enlarged prostate gland causing mass effect on the neck of the urinary bladder. Fat-containing small inguinal hernias are seen bilaterally. There are tiny sclerotic foci in the left iliac wing and the left acetabulum, new compared to the prior study. Multilevel lumbar spondylosis is seen. There is mild osteoarthritis of the bilateral hip joints. CT/CT Abd/Pelvis W/WO Contrast IMPRESSION: Diffuse hepatic steatosis. Multiple nonobstructing renal stones bilaterally. A few distal colonic diverticula. No acute diverticulitis. No abdominal or pelvic adenopathy. Enlarged prostate gland causing mass effect on the neck of the urinary bladder. Correlation with rectal examination and serum PSA levels is recommended. Tiny sclerotic foci in the left iliac vein and left acetabulum, which are new compared to the prior study. Although these may represent bone islands, skeletal metastases cannot be excluded. Bone scan may be obtained if clinically indicated. Electronically Signed: Rito Cruz MD at 19:31 EDT Tel , Service support ,
[2020-09-21 15:16] LABS: EGFR FINGERSTICK > 60.0000 mL/min (>60)
== END ==
PROVIDERS: PCP Family Medicine; Referring Provider Urology; Visit Provider Urology
DX: N40.1 Benign prostatic hyperplasia with lower urinary tract symptoms (principal)
CPT/HCPCS: 74178; Q9967

== ENCOUNTER → 2020-09-29 09:46 | Outpatient (CLI) | payer MEDICARE, OTHER, SELFPAY ==
[2020-06-01 13:04] VITALS: BMI 39.0
--- NOTE | 2020-09-29 09:47 | NM_ITS ---
CLINICAL: 70-year-old male with history of left acetabular radiographic abnormality defined on CT of the abdomen pelvis dated 09/21/2020. LIMITED PLANAR 99m Tc MDP RADIONUCLIDE BONE SCINTIGRAPHY COMPARISON: CT of the abdomen-pelvis report 09/21/2020 FINDINGS: Following the intravenous administration of 25.7 mCi of 99m Tc MDP, limited bone acquisitions of the midlower thoracic spine, lumbar spine and pelvis, lower extremities to the level of the mid tibial diaphysis bilaterally reveal: 1. Increased tracer concentration is defined in the visualized right wrist, the patellofemoral compartment of the left knee, medial tibial compartments of the bilateral knees. 2. The remaining skeletal structures are scintigraphically unremarkable with normal-appearing renal images and urinary bladder activity identified. NM/Bone Scan Whole Body IMPRESSION: 1. The increase in radiopharmaceutical concentration defined in the right wrist, left and right knee articulations is most consistent with degenerative arthritis. 2. Meticulous attention paid to the left acetabulum demonstrates no evidence of abnormal increased tracer uptake on the current examination. Electronically Signed: Elmer Ramirez DO at 23:11 EDT Tel , Service support ,
== END ==
PROVIDERS: PCP Family Medicine; Referring Provider Urology; Visit Provider Urology
DX: R93.89 Abnormal findings on diagnostic imaging of other specified body structures (principal)
CPT/HCPCS: 78306; A9503

== ENCOUNTER 2021-03-10 18:26 | Emergency (ER) | payer OTHER, MEDICARE, SELFPAY ==
[2021-03-10] VITALS (9 sets, daily range): BP systolic 104–158; BP diastolic 64–79; PULSE 74–84; RESP 16–20; TEMP 36.1; O2SAT 95–99; BMI 43.6
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
[2021-03-10] MEDS: HYDROcodone Bitartrate/Apap 5/325 Tablet PO (18:40)
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
[2021-03-10] MEDS: Bupivacaine Mpf 0.5% 30 ML VIAL INFILT (19:41)
[2021-03-10] MEDS: Lidocaine 1% (20 ml mdv) 20 ML Vial 5 ML INFILT (19:41)
--- NOTE | 2021-03-10 21:30 | RAD_ITS ---
STUDY: X-RAY - RIGHT WRIST REASON FOR EXAM: Male, 70 years old. postreduction -- PORTABLE TECHNIQUE: 2 view(s) of the wrist were obtained. COMPARISON: Initial study on the same day at 6:53 PM FINDINGS: No significant reduction of the distal radial comminuted fracture fragments. Although the carpus remains in articulation with the distal radial fracture fragments significant distraction is present in the central aspect of the radial articular surface. The remaining findings are stable. RAD/Wrist 2 Views IMPRESSION: No significant interval reduction of the distal radial fracture fragments Electronically Signed: Jaylen Kahn MD at 22:53 EST , Service support ,
[2021-03-10] MEDS: Morphine 2 MG/ML Syringe IV (21:35)
[2021-03-10] MEDS: Propofol 200 MG/20 ML Vial IV BOLUS (22:18)
--- NOTE | 2021-03-10 22:20 | RAD_ITS ---
STUDY: X-RAY - RIGHT WRIST REASON FOR EXAM: Male, 70 years old. Post reduction. TECHNIQUE: 2 view(s) of the wrist were obtained. COMPARISON: March 10, 2021 at 9:24 PM. 31/10/2020 at 6:55 PM. FINDINGS: Overlying cast obscures fine bony detail. Again noted is a comminuted intra-articular fracture of the distal radial metaphysis. Significantly improved alignment distal radius relative to the carpal bones. Mildly displaced ulnar styloid avulsion fracture unchanged. Radiocarpal joint space narrowing. No change in appearance of the soft tissues. RAD/Wrist 2 Views IMPRESSION: Comminuted intra-articular fracture of the distal radius with significant improvement in alignment since the prior study. Ulnar styloid avulsion fracture. Electronically Signed: Salvador Do MD at 0:07 EST , Service support ,
--- NOTE | 2021-03-10 22:38 | CT_ITS ---
STUDY: CT RIGHT WRIST WITHOUT CONTRAST REASON FOR EXAM: Male, 70 years old. right distal radius fracture RADIATION DOSAGE (If Supplied By Facility): CTDIvol = ( 24.58 ) mGy, DLP = ( 474.56 ) mGycm TECHNIQUE: Transaxial CT imaging of the elbow was performed. Sagittal and coronal images were reconstructed. Individualized dose optimization techniques were used for this CT. COMPARISON: None. FINDINGS: There is a comminuted displaced intra-articular fracture of the distal end of the radius. There is nondisplaced fracture of the ulnar styloid. Advanced degenerative changes are noted in the carpal joints. CT/Extremity Upper without Contra IMPRESSION: There is a comminuted displaced intra-articular fracture of the distal end of the radius. There is nondisplaced fracture of the ulnar styloid. Electronically Signed: Raven Jules MD at 1:07 EST Tel , Service support ,
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
[2021-03-10] MEDS: oxyCODONE 5 MG Tablet PO (23:11)
== END 2021-03-10 23:14 | disposition home or self-care (01) ==
PROVIDERS: Emergency Provider Emergency Medicine; PCP Family Medicine
DX: S52.614A Nondisplaced fracture of right ulna styloid process, initial encounter for closed fracture (principal); S52.571A Other intraarticular fracture of lower end of right radius, initial encounter for closed fracture; S20.219A Contusion of unspecified front wall of thorax, initial encounter; V43.52XA Car driver injured in collision with other type car in traffic accident, initial encounter; Y92.410 Unspecified street and highway as the place of occurrence of the external cause; Z79.4 Long term (current) use of insulin; Z79.82 Long term (current) use of aspirin; E11.9 Type 2 diabetes mellitus without complications; E78.00 Pure hypercholesterolemia, unspecified; M19.90 Unspecified osteoarthritis, unspecified site; I35.0 Nonrheumatic aortic (valve) stenosis; J45.909 Unspecified asthma, uncomplicated; I25.2 Old myocardial infarction; I25.10 Atherosclerotic heart disease of native coronary artery without angina pectoris; G47.33 Obstructive sleep apnea (adult) (pediatric); I11.0 Hypertensive heart disease with heart failure; I50.22 Chronic systolic (congestive) heart failure
CPT/HCPCS: 25605; 71046; 73100; 73110; 73200; 96374; 99285; J7030; A4216

== ENCOUNTER 2021-03-27 06:06 | Day surgery (SDC) | payer MEDICARE, OTHER, SELFPAY ==
[2021-03-22 15:34] LABS: Hematocrit 41.9 % (40-54); Hemoglobin 13.9 g/dL (13.0-16.5); Mean Corp Hgb Conc 33.2 g/dL (32-36); Mean Corpuscular Hgb 29.3 pg (27.0-32.0); Mean Corpuscular Volume 88.4 fL (80-94); Mean Platelet Vol. 10.2 fl (6.2-12.0); Platelet Count 299 K/mm3 (150-450); RBC Distribution Width CV 13.2 % (11.6-14.6); RBC Distribution Width SD 42.6 fl (35.1-43.9); Red Blood Count 4.74 M/mm3 (4.6-6.2); White Blood Count 8.8 K/mm3 (4.4-11.0)
[2021-03-22 16:08] LABS: Hemoglobin A1c 7.4 % (3.8-5.6)
[2021-03-22 16:09] LABS: Anion Gap 6 (5-15); BUN 15 mg/dL (7-18); Calcium,Total 9.8 mg/dL (8.5-10.1); Chloride 105 mmol/L (98-107); Creatinine, Serum 0.88 mg/dL (0.70-1.30); EST Glomerular Filtration Rate 91 mL/min (>60); Est Glom Filt Rate - Afr Amer 110 mL/min (>60); Glucose 188 mg/dL (74-106); Potassium 4.6 mmol/L (3.5-5.1); Sodium Level 139 mmol/L (136-145)
[2021-03-27] VITALS (14 sets, daily range): BP systolic 107–147; BP diastolic 66–84; PULSE 73–96; RESP 16–18; TEMP 36.1–36.3; O2SAT 89–98; BMI 42.6
[2021-03-27] MEDS: Lactated Ringers 1,000 ML 15 ML IV (07:06)
--- NOTE | 2021-03-27 07:24 | SUR.PREOP ---
PATIENT DOES NOT WANT THE EULOGIO HOSE ON HIS RIGHT LEG D/T SEVERE PAIN FROM ANKLE SPRAIN IN THAT ANKLE. DR. GROSS WAS IN THE ROOM AND HE SAID THAT WAS OK TO LEAVE IT OFF.
[2021-03-27 07:35] LABS: Bedside Glucose 156 mg/dL (70-110)
--- NOTE | 2021-03-27 08:30 | RAD_ITS ---
STUDY: X-RAY - RIGHT WRIST REASON FOR EXAM: Male, 70 years old. Intraoperative digital documentation images of ORIF of distal radius. TECHNIQUE: 3 intraoperative digital view(s) of the wrist were obtained. COMPARISON: 03/10/2021 FINDINGS: 3 intraoperative digital documentation images show volar plate and screw fixation over the previously described comminuted distal radial fracture. Near-anatomic alignment. Ulnar fracture still identified. RAD/Wrist 2 Views IMPRESSION: Intraoperative digital documentation images of ORIF of distal radius. Electronically Signed: Loyd Bird MD at 9:33 EST , Service support ,
--- NOTE | 2021-03-27 09:41 | PCM.DC ---
Discharge Instructions Follow Up Care Test Results: Test results from this visit will be discussed in further detail at your follow-up appointment, if applicable. Discharge Plan Admission Primary Reason for Your Visit: Right distal radius fracture open reduction internal fixation Attending Provider: Livan Gonsalves Primary Care Provider: Mau Tovar Instructions Additional Instructions / Restrictions: Maintain splint until follow-up. Keep it clean, dry and intact. Restart Plavix on postoperative day #1, 03/28/2021 Elevate the operative extremity and apply ice. Wiggle fingers while awake to encourage blood flow after nerve block wears off. Call the office with any questions or concerns. Discharge Orders/Prescriptions Prescriptions: Continued Humulin N NPH Insulin KwikPen 100 unit/mL (3 mL) insulin pen 50 unit SC BID RF: 0 Humulin R Regular U-100 Insuln 100 unit/mL solution 1 sliding scale dose SC UD RF: 0 rc-Zv-ofm-udjc-hozzb-nyqjevurh 3-200-400 mg-mcg-mg tablet 1 tab PO DAILY RF: 0 zolpidem 5 mg tablet 5 mg PO QHS PRN (Reason: Insomnia) RF: 0 atorvastatin 80 mg tablet 80 mg PO QHS RF: 0 metformin 500 MG tablet 500 mg PO DAILY RF: 0 aspirin 325 MG tablet 325 mg PO QHS RF: 0 oxycodone-acetaminophen 1 TABLET tablet 1 tab PO QHS PRN PRN (Reason: Pain) RF: 0 albuterol sulfate 1 PUFF inhaler 2 puff INHALATION Q6H PRN PRN (Reason: Sob &/Or Wheezing) RF: 0 budesonide-formoterol 1 INHALER inhaler 2 puff INHALATION BID RF: 0 carvedilol 25 mg tablet 25 mg PO BID RF: 0 nitroglycerin 0.4 mg tablet, sublingual 0.4 mg SUBLINGUAL .COMPLEX PRN (Reason: Chest Pain) Qty: 25 RF: 3 furosemide 40 mg tablet 40 mg PO BID Qty: 180 RF: 3 losartan 50 mg tablet 50 mg PO DAILY Qty: 90 RF: 3 clopidogrel [Plavix] 75 mg tablet 75 mg PO QDAY Qty: 90 RF: 3 potassium chloride 20 mEq tablet extended release 40 meq PO DAILY Qty: 180 RF: 3 Referrals / Follow Up: Mau Tovar DO [Primary Care Provider] - Spittle,Livan, DO [STAFF PHYSICIAN] - Within 2 Weeks Disposition Disposition (needs filled in before D/C Order can be placed): Home, Self Care
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
[2021-03-27] MEDS: Aspirin 325 MG Tablet PO (11:23)
[2021-03-27 11:35] LABS: Bedside Glucose 120 mg/dL (70-110)
--- NOTE | 2021-03-27 12:33 | SUR.PHASEI ---
UPDATED. PT REMAINS ON O2 IN PACU. PAIN TOLERABLE 07/22. DRINKING SODA, NO C/O.
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
== END 2021-03-27 14:51 | disposition home or self-care (01) ==
LOC: SDC 06:07 → AC 06:07
PROVIDERS: Anesthesiology; PCP Family Medicine; Referring Provider Student in an Organized Health Care Education/Training Program; Visit Provider Student in an Organized Health Care Education/Training Program
PROC: (CPT 20680; principal; 2021-03-27 07:10)
DX: S52.591A Other fractures of lower end of right radius, initial encounter for closed fracture (principal); S52.561 Barton's fracture of right radius; S52.571A Other intraarticular fracture of lower end of right radius, initial encounter for closed fracture; Z79.02 Long term (current) use of antithrombotics/antiplatelets; I10 Essential (primary) hypertension; E66.01 Morbid (severe) obesity due to excess calories; E11.9 Type 2 diabetes mellitus without complications; Z71.3 Dietary counseling and surveillance; Z68.41 Body mass index [BMI] 40.0-44.9, adult; I25.2 Old myocardial infarction
CPT/HCPCS: 20680; 25608; 36415; 73100; 73610; 76000; 80048; 82962; 83036; 85027; 86850; 86900; 86901; 93005; C1713; J7120; J2405

== ENCOUNTER 2021-06-20 14:37 | Outpatient (CLI) | payer MEDICARE, OTHER, SELFPAY ==
[2021-06-20 18:11] LABS: PSA,Total - Annual Screen 8.39 ng/mL (0.00-4.00)
== END 2021-06-20 23:59 | disposition home or self-care (01) ==
LOC: MTLAB 14:39
PROVIDERS: PCP Family Medicine; Referring Provider Urology; Visit Provider Urology
DX: R97.20 Elevated prostate specific antigen [PSA] (principal)
CPT/HCPCS: 36415; 84153; G0103

== ENCOUNTER 2021-07-05 11:30 | Outpatient (CLI) | payer MEDICARE, OTHER, SELFPAY ==
[2021-07-05 15:21] LABS: ALB/GLOB Ratio 1.1 RATIO (0.9-2.4); AST(SGOT) 20 U/L (15-37); Alanine Aminotransfer ALT/SGPT 47 U/L (16-61); Albumin, Serum 3.6 g/dL (3.2-5.0); Alkaline Phosphatase 144 U/L (45-117); Anion Gap 4 (5-15); BUN 15 mg/dL (7-18); BUN/Creat Ratio 15.9 RATIO (10-20); Calcium,Total 9.4 mg/dL (8.5-10.1); Chloride 110 mmol/L (98-107); Cholesterol 112 mg/dL (200); Creatinine, Serum 0.94 mg/dL (0.70-1.30); EST Glomerular Filtration Rate 84 mL/min (>60); Est Glom Filt Rate - Afr Amer 101 mL/min (>60); Globulin 3.2 g/dL (2.2-4.2); Glucose 157 mg/dL (74-106); High Density Lipoprotein 36 mg/dL; Potassium 3.9 mmol/L (3.5-5.1); Protein, Total 6.8 g/dL (6.4-8.2); Sodium Level 143 mmol/L (136-145); Triglycerides 77 mg/dL; Very Low Density Lipoprotein 15 mg/dL (5-40)
[2021-07-05 15:29] LABS: Hemoglobin A1c 7.5 % (3.8-5.6)
== END 2021-07-05 23:59 | disposition home or self-care (01) ==
LOC: MTLAB 11:32
PROVIDERS: PCP Family Medicine; Referring Provider Family Medicine; Visit Provider Family Medicine
DX: Z51.81 Encounter for therapeutic drug level monitoring (principal); E11.29 Type 2 diabetes mellitus with other diabetic kidney complication; I25.10 Atherosclerotic heart disease of native coronary artery without angina pectoris
CPT/HCPCS: 36415; 80053; 80061; 83036

== ENCOUNTER → 2021-09-21 | Outpatient (CLI) | payer MEDICARE, OTHER, SELFPAY ==
--- NOTE | 2021-09-21 06:49 | ECHOCS_ITS ---
Reason For Study: CAD/ASHD Procedure This was a 2D Doppler, Color Flow transthoracic echocardiogram. The study was technically difficult. Contrast injection was performed. Exam performed in department. Left Ventricle Normal LV size. Mild segmental systolic dysfunction (see wall motion). The estimated ejection fraction is 45 %. Diastolic function is indeterminate. Mid-Anterior : Hypokinetic. Mid-Inferior: Hypokinetic. Mid-inferoseptal : Akinetic. Mid-anteroseptal : Akinetic. [place] : Akinetic. Right Ventricle Normal RV size. Normal systolic function. Atria The left atrium is mildly enlarged. Normal right atrium. No doppler evidence for ASD. Mitral Valve There is mild mitral annular calcification. Extension of the mitral annular calcification onto the base of the posterior mitral valve leaflet. Trivial mitral valve insufficiency. Tricuspid Valve Normal tricuspid valve. Mild tricuspid valve insufficiency. Unable to estimate RV systolic pressure/pulmonary artery pressure due to technically difficult study. Aortic Valve Trisinus/trileaflet aortic valve. Mild diffuse aortic valve thickening. Mild focal aortic valve calcification. Mild aortic stenosis. Pulmonic Valve The pulmonic valve is not well visualized. Great Vessels Normal sized aortic root. Pericardium/Pleural No pericardial effusion. Medication 20 gauge I.V. with prn adaptor inserted into right arm. Diluted definity 3ml given slow IV push to enhance endocardial definition. MMode/2D Measurements & Calculations LVIDd: 5.5 cm IVSd: 1.1 cm LVOT diam: 2.0 cm LVIDs: 4.5 cm LVPWd: 1.1 cm RVDd: 3.4 cm FS: 17.3 % LVOT area: 3.1 cm2 Ao root diam: 3.3 cm LAV(MOD-bp): 75.1 ml LVAd ap4: 38.7 cm2 ACS: 1.2 cm LAV(MOD-bp) Indexed: 31.0 ml/m2 LVLd ap4: 8.3 cm LA dimension: 4.1 cm LAV(MOD-sp2): 70.9 ml EDV(MOD-sp4): 146.2 ml LAV(MOD-sp4): 73.4 ml EDV(sp4-el): 153.1 ml LVAs ap4: 27.6 cm2 LVLs ap4: 7.6 cm ESV(MOD-sp4): 82.2 ml ESV(sp4-el): 84.9 ml EF(MOD-sp4): 43.8 % EF(sp4-el): 44.5 % SV(MOD-sp4): 64.0 ml SV(sp4-el): 68.2 ml Aortic Valve Planimetry: 1.6 cm2 LA A4 area: 23.7 cm2 RA A4 area: 20.5 cm2 Time Measurements MV dec time: 0.24 sec Doppler Measurements & Calculations MV E max yuri: 124.7 cm/sec Lat Peak E' Yuri: 9.5 cm/sec Med Peak E' Yuri: 7.1 cm/sec MV A max yuri: 105.7 cm/sec E/E' lat: 13.1 E/E' med: 17.6 MV E/A: 1.2 MV V2 max: 131.4 cm/sec MV P1/2t max yuri: 132.7 cm/sec Ao V2 max: 197.0 cm/sec MV max P.9 mmHg MV P1/2t: 91.5 msec Ao max P.5 mmHg MV V2 mean: 68.7 cm/sec MV dec slope: 424.5 cm/sec2 Ao V2 mean: 133.9 cm/sec MV mean P.3 mmHg MVA(P1/2t): 2.4 cm2 Ao mean P.4 mmHg MV V2 VTI: 32.7 cm Ao V2 VTI: 43.7 cm MVA(VTI): 2.2 cm2 EMILIA(I,D): 1.6 cm2 EMILIA(V,D): 1.8 cm2 LV V1 max: 114.3 cm/sec SV(LVOT): 71.5 ml PA V2 max: 108.8 cm/sec LV V1 max P.2 mmHg LV V1 mean P.4 mmHg LV V1 mean: 70.9 cm/sec LV V1 VTI: 23.3 cm ECHO/Echo Complete W/ Contrast Interpretation Summary The study was technically difficult. Contrast injection was performed. Mild segmental systolic dysfunction (see wall motion). The estimated ejection fraction is 45 %. The left atrium is mildly enlarged. There is mild mitral annular calcification. Extension of the mitral annular calcification onto the base of the posterior mi tral valve leaflet. Trivial mitral valve insufficiency. Mild tricuspid valve insufficiency. Mild aortic stenosis. Unable to estimate RV systolic pressure/pulmonary artery pressure due to techni norberto difficult study. Diastolic function is indeterminate. Ordering Physician: Jaspreet Rubalcava Referring Physician: Mau Tovar Performed By: Moe Soto RCS
--- NOTE | 2021-09-21 08:53 | STRESSREP_ITS ---
Stress Test Report Date: Procedure: Pharmacologic stress nuclear imaging study Indications: Shortness of breath/dyspnea on exertion; CAD; status post UT; status post PCI; ischemic mediated cardiomyopathy Consent: Per the patient Procedure: The patient underwent pharmacologic (Regadenoson 0.4mg ) evaluation with a peak heart rate of 99 beats per minute (66%predicted maximal heart rate) and a peak blood pressure of 138/82 mmHg. The baseline ECG demonstrated normal sinus rhythm; poor R wave progression; anterior Chavez indeterminate age cannot be excluded. The peak pharmacologic ECG demonstrated no obvious ECG changes. There were no cardiac dysrhythmias pretest, during pharmacologic infusion, or recovery. There was no complaint of chest discomfort during pharmacologic infusion or recovery. The examination was discontinued secondary to completion of protocol. Impression: 1. Pharmacologic (Regadenoson) evaluation 2. Peak pharmacologic ECG with no obvious ECG changes. 3. There were no cardiac dysrhythmias pretest, during pharmacologic infusion, or recovery. 4. Nuclear images pending Myocardial perfusion imaging study: Technique: The patient was injected with 10.6 millicuries of technetium 99m Cardiolite and subsequently rest SPECT Cardiolite nuclear imaging was obtained in the horizontal long, vertical long, and short axis views. The patient underwent pharmacologic (Regadenoson) evaluation with a peak heart rate of 99 beats per minute (60% percent predicted maximal heart rate) and a peak blood pressure of 138/82 mmHg. The patient was injected with 44.4 millicuries of technetium 99m Cardiolite and subsequently stress SPECT Cardiolite nuclear imaging was obtained in the horizontal long, vertical long, and short axis views. A gated Cardiolite study at peak stress was obtained. Interpretation: Rest and stress SPECT Cardiolite nuclear imaging status post realignment and normalization (attenuation correction not performed) demonstrate the appearance of diminished absence of myocardial perfusion/tracer uptake in portions of the mid to distal anterior, anteroapical, distal anteroseptal/septal apical, distal inferior/inferoapical segments without significant change between rest and stress. There is diminished end-systolic thickening and brightening in the aforementioned area. The gated Cardiolite study demonstrates diminished myocardial thickening and inward wall motion. The reported LVEF is 43%. Impression: 1. Rest and stress SPECT current nuclear imaging demonstrate myocardial perfusion changes appearing compatible with an area of previous myocardial injury/infarction involving portions of the mid to distal anterior, anteroapical, distal anteroseptal/septal apical, and distal inferoapic al/inferoapical segments without myocardial perfusion changes considered diagnostic for associated stress-induced myocardial ischemia. 2. The gated Cardiolite study reports an LVEF of 43%. This note was generated with [employer] software. It may contain incorrect words, spelling, and punctuation that were not noted in checking the note before signing.
== END | disposition home or self-care (01) ==
LOC: CVS 06:47
PROVIDERS: PCP Family Medicine; Referring Provider Internal Medicine Cardiovascular Disease; Visit Provider Internal Medicine Cardiovascular Disease
DX: R06.00 Dyspnea, unspecified (principal); I11.0 Hypertensive heart disease with heart failure; I50.22 Chronic systolic (congestive) heart failure; Z95.5 Presence of coronary angioplasty implant and graft; E78.00 Pure hypercholesterolemia, unspecified; I35.0 Nonrheumatic aortic (valve) stenosis; I25.10 Atherosclerotic heart disease of native coronary artery without angina pectoris; I25.5 Ischemic cardiomyopathy
CPT/HCPCS: 78452; 93017; 93306; A9500; Q9957; A4216; C8929; J2785

== ENCOUNTER → 2021-11-15 | Outpatient (CLI) | payer MEDICARE, OTHER, SELFPAY | END | disposition home or self-care (01) | LOC: MTLAB 08:25 | PROVIDERS: PCP Family Medicine; Referring Provider Family Medicine; Visit Provider Family Medicine | DX: R19.7 Diarrhea, unspecified (principal) | CPT/HCPCS: 83630; 87177; 87209; 87493; 87506 ==

== ENCOUNTER → 2022-04-17 | Outpatient (CLI) | payer MEDICARE, OTHER, SELFPAY ==
--- NOTE | 2022-04-17 13:55 | CT_ITS ---
HISTORY: Right flank pain, history of multiple kidney stones. TECHNIQUE: Helically acquired images were obtained of the abdomen and pelvis without oral or IV contrast. A radiation dose optimization technique was used for this scan. 556 images. COMPARISON: 09/21/2020. FINDINGS: LOWER CHEST: Lung bases clear. BOWEL: Bowel including appendix nondilated. No focal pericolonic inflammatory change. PERITONEUM: No significant free fluid. LIVER: Fatty infiltration. GALLBLADDER/BILIARY TREE: Gallbladder present. KIDNEYS AND URETERS: Multiple bilateral renal calculi measuring up to 4 mm on the right and 7 mm on the left. No hydronephrosis or obstructing renal calculus. Small right renal cysts. SPLEEN/PANCREAS/ADRENAL GLANDS: Unremarkable. VESSELS: No abdominal aortic aneurysm. Mild atherosclerosis of the abdominal aorta and its major branches. PELVIC ORGANS: Enlarged prostate gland again noted. ABDOMINAL WALL: Fat-containing umbilical and inguinal hernias. BONES: Degenerative change. CT/Abdomen/Pelvis without Cont IMPRESSION: Multiple bilateral nonobstructing renal calculi. No obstructing ureteral calculus. Small right renal cysts. Hepatic steatosis. Electronically Signed: Vero Zuluaga MD at 15:00 EST ,
== END | disposition home or self-care (01) ==
LOC: CT 13:53
PROVIDERS: PCP Family Medicine; Visit Provider Family Medicine
DX: R10.9 Unspecified abdominal pain (principal); R31.29 Other microscopic hematuria
CPT/HCPCS: 74176

== ENCOUNTER 2022-04-19 06:01 | Day surgery (SDC) | payer MEDICARE, OTHER, SELFPAY ==
[2022-04-19] VITALS (7 sets, daily range): BP systolic 113–139; BP diastolic 57–75; PULSE 80–86; RESP 16–18; TEMP 36.3–37.1; O2SAT 93–96; BMI 38.7
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
[2022-04-19] MEDS: Lactated Ringers 1,000 ML 15 ML IV (06:25)
--- NOTE | 2022-04-19 07:00 | EGD_PTH ---
PATIENT: CLAY MONTEJO LOC: EN U#:[id number] AGE/SX: 71/M ROOM: RE04/19/[address]: Dr. Greg Gaona MD : 1950 BED: DIS: 04/19/2022 SPEC #: [id number] RECD: 04/19/22 11:20 STATUS: RACHAEL TONI #: [id number] HARRY: 04/19/22 07:[address]: Greg Gaona DEPT: SURGICAL PATHOLOGY RECD BY: Litzy Enriquez ENTERED: 04/19/22 13:45 SP TYPE: EGD BIOPSY OT DR: Dr. Mau Tovar, Tissues: Sigmoid colon biopsy Procedures: Surgery Specimen Level IV HEADER OPERATION: Colonoscopy (MAC) PRE-OP DIAGNOSIS: Screening TISSUE SUBMITTED: Distal sigmoid polyp MICROSCOPIC DIAGNOSIS Distal sigmoid colon polyp, biopsy: Fragments of tubulovillous adenoma. AM:simone 04/22/2022 MICROSCOPIC DESCRIPTION Slides are reviewed. GROSS DESCRIPTION Received in fixative is one container labeled with the patient's name and designated distal sigmoid polyp. The specimen consists of multiple irregular fragments of light gallardo soft tissue that in aggregate measure 2.5 x 1.5 x 0.2 cm. The specimen is totally submitted in one cassette. / AM:simone 04/19/2022 TC:5 CPT: 31985
[2022-04-19 07:10] LABS: Bedside Glucose 124 mg/dL (74-106)
--- NOTE | 2022-04-19 07:36 | OP.COLON_ITS ---
Patient Name: Clay Del Rosario Procedure Date: 04/19/2022 7:01 AM Date of : 1950 Age: 71 Procedure: Colonoscopy Indications: Screening for colorectal malignant neoplasm Providers: Greg Gaona MD Medicines: See the Anesthesia note for documentation of the administered medications Patient Profile: Last Colonoscopy: July 2008. Complications: No immediate complications. Procedure: Pre-Anesthesia Assessment: - Prior to the procedure, a History and Physical was performed, and patient medications and allergies were reviewed. The patient's tolerance of previous anesthesia was also reviewed. The risks and benefits of the procedure and the sedation options and risks were discussed with the patient. All questions were answered, and informed consent was obtained. Prior Anticoagulants: The patient has taken no previous anticoagulant or antiplatelet agents. ASA Grade Assessment: III - A patient with severe systemic disease. After reviewing the risks and benefits, the patient was deemed in satisfactory condition to undergo the procedure. After I obtained informed consent, the scope was passed under direct vision. Throughout the procedure, the patient's blood pressure, pulse, and oxygen saturations were monitored continuously. The colonoscope was introduced through the anus and advanced to the cecum, identified by appendiceal orifice and ileocecal valve. The colonoscopy was performed without difficulty. The patient tolerated the procedure well. The quality of the bowel preparation was adequate to identify polyps. The ileocecal valve and the appendiceal orifice were photographed. The ileocecal valve and the appendiceal orifice were photographed. Scope In: 7:08:40 AM Scope Withdrawal Time 0 hours 16 minutes 37 seconds Scope Out: 7:29:10 AM Total Procedure Duration Time 0 hours 20 minutes 30 seconds Findings: The digital rectal exam findings include enlarged prostate. The ileocecal valve was mildly lipomatous. A 22 mm polyp was found in the distal sigmoid colon. The polyp was sessile. The polyp was removed with a piecemeal technique using a hot snare. Resection and retrieval were complete. To prevent bleeding post-intervention, one hemostatic clip was successfully placed. There was no bleeding at the end of the procedure. Impression: - Enlarged prostate found on digital rectal exam. - Lipomatous ileocecal valve. - One 22 mm polyp in the distal sigmoid colon, removed piecemeal using a hot snare. Resected and retrieved. Clip was placed, approximately 22cm from anus Pelvic xray to confirm clip position Recommendation: - Repeat colonoscopy in 3 years for surveillance based on pathology results. - Telephone my office for pathology results in 1 week. - Continue present medications. Procedure Code(s): --- Professional --- 50368, Colonoscopy, flexible; with removal of tumor(s), polyp(s), or other lesion(s) by snare technique Diagnosis Code(s): --- Professional --- Z12.11, Encounter for screening for malignant neoplasm of colon K63.89, Other specified diseases of intestine D12.5, Benign neoplasm of sigmoid colon N40.0, Benign prostatic hyperplasia without lower urinary tract symptoms CPT copyright 2017 [employer]. All rights reserved. The codes documented in this report are preliminary and upon store manager review may be revised to meet current compliance requirements. Greg Gaona MD 04/19/2022 7:35:51 AM This report has been signed electronically. Number of Addenda: 0 Note Initiated On: 04/19/2022 7:01 AM
--- NOTE | 2022-04-19 07:36 | RAD_ITS ---
EXAM: XR PELVIS, 1 OR 2 VIEWS CLINICAL INDICATION: clip placement -- portable, single view TECHNIQUE: Frontal view of the pelvis. This report was created using H[employer] report generation technology. COMPARISON: None. FINDINGS: BONES/JOINTS: Radiopaque density projects over the upper sacrum within the midline. No acute bone or joint abnormality SOFT TISSUES: Normal. No soft tissue swelling or gas. RAD/Pelvis 1 or 2 Views IMPRESSION: As above. Electronically Signed: Iker Gutierrez MD at 8:09 EST ,
--- NOTE | 2022-04-19 07:37 | OP.CCLET_ITS ---
04/19/2022 Mau Tovar [address] [place] [address] Re : Colonoscopy procedure for Clay Del Rosario Dear Dr. Tovar This procedure was performed on Tuesday, April 19, 2022. My impressions and recommendations are as follows: Impressions : - Enlarged prostate found on digital rectal exam. - Lipomatous ileocecal valve. - One 22 mm polyp in the distal sigmoid colon, removed piecemeal using a hot snare. Resected and retrieved. Clip was placed, approximately 22cm from anus Pelvic xray to confirm clip position Recommendations : - Repeat colonoscopy in 3 years for surveillance based on pathology results. - Telephone my office for pathology results in 1 week. - Continue present medications. My findings are described in the full procedure note, which is enclosed. If I can be of further assistance, please feel free to contact me at Doctor phone number(s): Work: . Sincerely, Greg Gaona MD 04/19/2022 7:35:51 AM This report has been signed electronically.
== END 2022-04-19 08:23 | disposition home or self-care (01) ==
LOC: EN 06:02 → AC 06:03
PROVIDERS: PCP Family Medicine; Referring Provider Family Medicine; Visit Provider Surgery
PROC: 0DJD8ZZ Inspection of Lower Intestinal Tract, Via Natural or Artificial Opening Endoscopic (ICD-10-PCS; CPT 45378; principal; 2022-04-19 06:55)
DX: Z12.11 Encounter for screening for malignant neoplasm of colon (principal); I11.0 Hypertensive heart disease with heart failure; I50.22 Chronic systolic (congestive) heart failure; E11.9 Type 2 diabetes mellitus without complications; Z79.4 Long term (current) use of insulin; Z95.5 Presence of coronary angioplasty implant and graft; I35.0 Nonrheumatic aortic (valve) stenosis; I25.5 Ischemic cardiomyopathy; N40.0 Benign prostatic hyperplasia without lower urinary tract symptoms; G47.30 Sleep apnea, unspecified; K42.0 Umbilical hernia with obstruction, without gangrene; M19.90 Unspecified osteoarthritis, unspecified site; K63.89 Other specified diseases of intestine; D12.5 Benign neoplasm of sigmoid colon
CPT/HCPCS: 45385; 72170; 82962; 88305; J7120; J2405

== ENCOUNTER → 2022-06-26 | Outpatient (CLI) | payer MEDICARE, OTHER, SELFPAY ==
[2022-06-26 12:06] LABS: Absolute Lymphocyte Count 1.15 X10^3/uL (0.83-4.51); Absolute Neutrophil Count 5.4 X10^3/uL (2.0-7.7); Basophil# 0.05 X10^3/uL; Basophil% 0.6 % (0-1); Eosinophil# 0.43 X10^3/uL; Eosinophils% 5.3 % (0-5); Hematocrit 46.4 % (40-54); Hemoglobin 15.1 g/dL (13.0-16.5); Lymphocyte # 1.15 X10^3/ul (0.83-4.51); Lymphocyte % 14.2 % (19-41); Mean Corp Hgb Conc 32.5 g/dL (32-36); Mean Corpuscular Hgb 29.4 pg (27.0-32.0); Mean Corpuscular Volume 90.3 fL (80-94); Monocyte# 1.05 X10^3/uL; NRBC Flagged by Analyzer 0 % (0-5); Neutrophil # 5.39 X10^3/uL (2.7-7.7); Neutrophil % 66.5 % (47-70); Platelet Count 235 K/mm3 (150-450); RBC Distribution Width CV 14.1 % (11.6-14.6); RBC Distribution Width SD 46.2 fl (35.1-43.9); Red Blood Count 5.14 M/mm3 (4.6-6.2); White Blood Count 8.1 K/mm3 (4.4-11.0)
[2022-06-26 12:49] LABS: ALB/GLOB Ratio 1.1 RATIO (0.9-2.4); AST(SGOT) 14 U/L (15-37); Alanine Aminotransfer ALT/SGPT 32 U/L (16-61); Albumin, Serum 3.6 g/dL (3.2-5.0); Alkaline Phosphatase 133 U/L (45-117); Anion Gap 6 (5-15); BUN 20 mg/dL (7-18); Calcium,Total 9.7 mg/dL (8.5-10.1); Chloride 110 mmol/L (98-107); Cholesterol 99 mg/dL (200); Creatinine, Serum 1.05 mg/dL (0.70-1.30); EST Glomerular Filtration Rate 74 mL/min (>60); Est Glom Filt Rate - Afr Amer 89 mL/min (>60); Globulin 3.4 g/dL (2.2-4.2); Glucose 101 mg/dL (74-106); High Density Lipoprotein 31 mg/dL; PSA,Total - Annual Screen 9.88 ng/mL (0.00-4.00); Potassium 4.2 mmol/L (3.5-5.1); Sodium Level 144 mmol/L (136-145); Triglycerides 105 mg/dL; Very Low Density Lipoprotein 21 mg/dL (5-40)
[2022-06-26 13:12] LABS: Microalbumin:Creatinine Ratio 30.7 mg/g CRE (<30 mg/g CRE)
[2022-06-26 13:37] LABS: Hemoglobin A1c 7.8 % (3.8-5.6)
== END | disposition home or self-care (01) ==
LOC: BFHLAB 10:13
PROVIDERS: PCP Family Medicine; Referring Provider Family Medicine; Visit Provider Family Medicine
DX: E11.29 Type 2 diabetes mellitus with other diabetic kidney complication (principal); E78.5 Hyperlipidemia, unspecified; R97.20 Elevated prostate specific antigen [PSA]; Z12.5 Encounter for screening for malignant neoplasm of prostate
CPT/HCPCS: 36415; 80053; 80061; 82043; 82570; 83036; 84153; 85025; G0103

== ENCOUNTER → 2023-02-05 | Outpatient (CLI) | payer MEDICARE, OTHER, SELFPAY ==
--- NOTE | 2023-02-05 11:24 | RAD_ITS ---
STUDY: X-RAY - LUMBAR SPINE REASON FOR EXAM: Male, 72 years old. Left sided sciatica. TECHNIQUE: 4 view(s) of the lumbar spine were obtained. COMPARISON: October 01, 2018 FINDINGS: Osteopenia. Normal lumbar lordosis. No substantial scoliosis. Normal alignment of the vertebrae. Diffuse lower thoracic and lumbosacral facet sclerosis. Normal vertebral body morphology. Mild intervertebral disc space narrowing at L3-4 and L4-5 with small osteophytes. Multiple calcifications projected over the right renal outline. Phleboliths and vascular calcification. RAD/L/S Spine Min 4 Views IMPRESSION: Osteopenia with mild lower lumbosacral spondylosis and right nephrocalcinosis. Electronically Signed: Loyd Bird MD at 12:33 EDT ,
== END | disposition home or self-care (01) ==
LOC: MTRAD 11:23
PROVIDERS: PCP Family Medicine; Referring Provider Nurse Practitioner Family; Visit Provider Nurse Practitioner Family
DX: M54.32 Sciatica, left side (principal)
CPT/HCPCS: 72110

== ENCOUNTER → 2023-05-14 | Outpatient (CLI) | payer MEDICARE, OTHER, SELFPAY ==
--- NOTE | 2023-05-14 10:48 | ECHOCS_ITS ---
Reason For Study: AORTIC VALVE STENOSIS Procedure This was a 2D Doppler, Color Flow transthoracic echocardiogram. The study was technically difficult. Due to body habitus. Contrast injection was performed. Exam performed in department. Left Ventricle Mildly dilated left ventricle. Mild assymetric septal hypertrophy. The estimated ejection fraction is 40 %. Stage 1 diastolic dysfunction. There are regional wall motion abnormalities as specified. Basal anteroseptal: Hypokinetic. Mid-anteroseptal : Akinetic. Septal [place] : Akinetic. Lateral [place] : Akinetic. Mid-Anterior : Hypokinetic. Mid-Inferior: Hypokinetic. Inferior [place] : Akinetic. Anterior [place] : Akinetic. The rest of the wall segments are normal. Right Ventricle Normal RV size. Normal systolic function. Atria The left atrium is mildly enlarged. Normal right atrium. Hypermobile atrial septum. Mitral Valve There is Mild focal posterior mitral annular calcification. The mitral valve is structurally normal. No prolapse or stenosis seen. Tricuspid Valve Trivial tricuspid valve insufficiency. Right ventricular systolic pressure estimated to be 32 mmHg. Aortic Valve Trisinus/trileaflet aortic valve. Mild diffuse aortic valve thickening. Mild focal aortic valve calcification. Mild aortic stenosis. Peak aortic valve gradient 13 mmHg. Mean aortic valve gradient 9 mmHg. Pulmonic Valve Normal pulmonic valve. Great Vessels Normal aortic root. Mild atherosclerosis of the ascending aorta. Pericardium/Pleural No pericardial effusion. Medication 22 gauge I.V. with prn adaptor inserted into left arm. Diluted definity 3.0ml given slow IV push to enhance endocardial definition. MMode/2D Measurements & Calculations LVIDd: 6.1 cm IVSd: 1.2 cm Ao root diam: 3.5 cm LVIDs: 4.6 cm LVPWd: 1.0 cm RVDd: 3.0 cm FS: 24.4 % LAV(MOD-bp): 83.7 ml LVAd ap4: 38.3 cm2 SV(MOD-sp4): 53.2 ml LAV(MOD-bp) Indexed: 36.0 ml/m2 LVLd ap4: 9.6 cm LAV(MOD-sp2): 78.8 ml EDV(MOD-sp4): 127.5 ml LAV(MOD-sp4): 78.9 ml EDV(sp4-el): 129.6 ml LVAs ap4: 27.6 cm2 LVLs ap4: 8.4 cm ESV(MOD-sp4): 74.4 ml ESV(sp4-el): 77.4 ml EF(MOD-sp4): 41.7 % EF(sp4-el): 40.3 % SV(sp4-el): 52.2 ml LA A4 area: 23.1 cm2 LA dimension(2D): 4.2 cm TAPSE: 3.2 cm Time Measurements MV dec time: 0.22 sec Doppler Measurements & Calculations MV E max yuri: 111.6 cm/sec Lat Peak E' Yuri: 8.5 cm/sec Med Peak E' Yuri: 8.9 cm/sec MV A max yuri: 100.2 cm/sec E/E' lat: 13.2 E/E' med: 12.6 MV E/A: 1.1 MV V2 max: 110.2 cm/sec MV P1/2t max yuri: 106.1 cm/sec Ao V2 max: 201.9 cm/sec MV max P.9 mmHg MV P1/2t: 65.1 msec Ao max P.7 mmHg MV V2 mean: 72.2 cm/sec Ao V2 mean: 144.4 cm/sec MV mean P.3 mmHg MV dec slope: 477.2 cm/sec2 Ao mean P.2 mmHg MV V2 VTI: 26.7 cm MVA(P1/2t): 3.4 cm2 Ao V2 VTI: 42.4 cm AV (velocity ratio): 0.49 LV V1 max: 104.5 cm/sec PA V2 max: 104.0 cm/sec TR max yuri: 245.1 cm/sec LV V1 max P.4 mmHg PA V2 mean: 72.7 cm/sec TR max P.0 mmHg LV V1 mean P.4 mmHg PA V2 VTI: 28.3 cm LV V1 mean: 74.2 cm/sec LV V1 VTI: 20.6 cm ECHO/Echo Complete W/ Contrast Interpretation Summary The estimated ejection fraction is 40 %. Mildly dilated left ventricle. Stage 1 diastolic dysfunction. There are regional wall motion abnormalities as specified. Mild aortic stenosis. No significant change from previous echocardiogram The study was technically difficult. Contrast injection was performed. Ordering Physician: Nixon Frausto Referring Physician: Mau Tovar Performed By: Mariia Diana RDCS, RVT
--- OUTSIDE RECORDS SUMMARY | 2023-05-14 12:12 | XMS RPT_ITS | CCD ---
Author Name Unknown Address [id number] [place] [address] Organization [facility] Care Team Providers Care Machine Worker Name Role Phone Roof DIRECTOR CORPORATE SALES, Aamir Hatfield Unavailable CHRISTIANO Galvan, Cherrie Maldonado Unavailable Unavailabl e CHRISTIANO Galvan, Cherrie Maldonado Unavailable Unavailabl e Afsaneh Monteiro Unavailable Unavailable Michael Benz Unavailable Unavailable Renata Mccann Unavailable Unavailable La DO, Daria A Primary Care Provider La DO, Daria A Primary Care Provider La DO, Daria A Primary Care Provider JILLIAN, TANIA Attending Unavailable LA, DARIA A Primary Care Unavailable TESTRAKE, TANIA Referring Unavailable TESTRAKE, TANIA Attending Unavailable LA, DARIA A Primary Care Unavailable TESTRAKE, TANIA Referring Unavailable LA, DARIA A Primary Care Unavailable TESTRAKE, TANIA Attending Unavailable LA, DARIA A Primary Care Unavailable TESTRAKE, TANIA Referring Unavailable TESTRAKE, TANIA Attending Unavailable Medications Completed/Discontinued Medications Medication Drug Class(es) Dates Sig (Normalized) Sig (Original) acetaminophen 325 mg / oxyCODONE hydrochloride 5 mg oral tablet (12 sources) Opioid Agonist Start: 06-13-2011 PERCOCET 5-325 MG TABS As needed OXYCODONE-ACETAMINO PHEN [id number] Jaspreet Rubalcava MD Problems Active Problems Problem Classification Problem Date Documented Da te Episodic/Chronic Acute myocardial infarction (12 [address]) ST elevation (STEMI) myocardial infarction involving other coronary artery of anterior wall; Translations: [ST elevation (STEMI) myocardial infarction involving other coronary artery of anterior wall] Onset: 06-29-2010 Resolved: 07-27-2015 06-29-2010 Chronic Coronary atherosclerosis and other heart disease (18 sources) Coronary atherosclerosis; Translations: [Angina pectoris] Onset: 06-29-2010 01-25-2016 Chronic Diabetes mellitus with complications (12 sources) Polyneuropathy due to type 2 diabetes mellitus; Translations: [Type 2 diabetes mellitus with diabetic polyneuropathy] Onset: 10-23-2017 Chronic Diabetes mellitus without complication (6 sources) Type 1 diabetes mellitus without complications; Translations: [Type 1 diabetes mellitus without complications] Onset: 06-29-2010 06-29-2010 Chronic Disorders of lipid metabolism (6 sources) Hyperlipidemia; Translations: [Hyperlipidemia, unspecified] Onset: 06-29-2010 06-29-2010 Chronic Mycoses (6 sources) Onychomycosis; Translations: [Tinea unguium] Episodic Other connective tissue disease (6 sources) Pain of toe of left foot; Translations: [Pain in left toe(s)] Episodic Other connective tissue disease (6 sources) Pain of toe of right foot; Translations: [Pain in right toe(s)] Episodic Other gastrointestinal disorders (6 sources) Diarrhea; Translations: [Diarrhea, unspecified] 05-02-2011 Episodic Other nutritional; endocrine; and metabolic disorders (6 sources) Body mass index (BMI) 40.0-44.9, adult; Translations: [Body mass index (BMI) 40.0-44.9, adult] Onset: 06-28-2013 06-28-2013 Chronic Other skin disorders (1 source) Keratosis; Translations: [Epidermal thickening, unspecified] Episodic Other skin disorders (4 sources) Ingrowing nail of toe of right foot; Translations: [Ingrowing nail] Episodic Unclassified (2 sources) Long-term drug therapy; Translations: [Other penitentiary (current) drug therapy] Onset: 06-29-2010 06-29-2010 Past or Other Problems Problem Classification Problem Date Documented Da te Episodic/Chronic Congestive heart failure; nonhypertensive (2 sources) Diastolic dysfunction; Translations: [Other ill-defined heart diseases] Onset: 09-02-2014 09-02-2014 Episodic Coronary atherosclerosis and other heart disease (8 sources) Coronary angioplasty status; Translations: [History of myocardial infarction] Onset: 06-29-2010 06-29-2010 Episodic Fluid and electrolyte disorders (6 sources) Hypokalemia; Translations: [Hypokalemia] Onset: 10-06-2014 10-06-2014 Episodic Nonspecific chest pain (6 sources) Tight chest; Translations: [Other chest pain] Onset: 06-29-2010 06-29-2010 Episodic Other aftercare (4 sources) Other adjunct faculty for medical terminology (current) drug therapy; Translations: [Other penitentiary (current) drug therapy] Onset: 06-29-2010 06-29-2010 Episodic Other circulatory disease (14 sources) Abnormal result of cardiovascular function study, unspecified; Translations: [History of myocardial infarction] Onset: 06-29-2010 06-29-2010 Episodic Other lower respiratory disease (12 sources) Dyspnea; Translations: [Dyspnea, unspecified] Onset: 06-29-2010 06-29-2010 Episodic Other skin disorders (12 sources) Skin tag; Translations: [Other hypertrophic disorders of the skin] Onset: 06-24-2013 06-24-2013 Episodic Residual codes; unclassified (2 sources) Family history of ischemic heart disease; Translations: [Family history of ischemic heart disease and other diseases of the circulatory system] Onset: 06-29-2010 06-29-2010 Episodic Unclassified (10 sources) Edema; Translations: [Family history of ischemic heart disease] Onset: 06-29-2010 06-29-2010 Episodic Results Test Name Value Interpretation Reference Range Facil ity Vital Signs Date Time Vital Sign Value Performing Clinician Estelita englsih 01-30-2017 15:47-0400 BMI (Body Mass Index) 38.16 kg/m2 [facility] Work Phone: 01-30-2017 15:47-0400 BP Diastolic 62 mm[Hg] [facility] Work Phone: 01-30-2017 15:47-0400 BP Systolic 118 mm[Hg] [facility] Work Phone: 01-30-2017 15:47-0400 Height 177.8 cm [facility] Work Phone: 01-30-2017 15:47-0400 Pulse (Heart Rate) 80 /min [facility] Work Phone: 01-30-2017 15:47-0400 Respiratory Rate 18 /min [facility] Work Phone: 01-30-2017 15:47-0400 Weight 120.66 kg [facility] Work Phone: 01-30-2017 15:47-0400 Weight 120.65 kg [facility] Work Phone: 08-08-2016 13:06-0400 BMI (Body Mass Index) 39.17 kg/m2 Afs[facility]h [facility] Work Phone: 08-08-2016 13:06-0400 BP Diastolic 62 mm[Hg] Afsaneh [facility] Work Phone: 08-08-2016 13:06-0400 BP Systolic 108 mm[Hg] Afsanehvarun [facility] Work Phone: 08-08-2016 13:06-0400 Pulse (Heart Rate) 80 /min A[facility]hvarun [facility] Work Phone: 08-08-2016 13:06-0400 Respiratory Rate 16 /min Afsanehvarun [facility] Work Phone: 08-08-2016 13:06-0400 Weight 123.83 kg Afsanehvarun [facility] Work Phone: 02-01-2016 13:23-0400 BSA (Body Surface Area) 2.4 m2 Afsanehvarun [facility] Work Phone: 08-03-2015 10:20-0400 Heart rate 82 /min Renata [facility] Work Phone: 05-04-2012 08:45-0500 Heart rate 389 ms Renata Mccann [facility] Work Phone: 03-14-2011 11:07-0500 Height 177.8 cm Afsanehvarun [facility] Work Phone: Encounters Encounter Date Encounter Type Care Provider Facility Start: 04-03-2023 End: 04-03-2023 ambulatory TANIA WALSH Facility:[facility] Start: 01-02-2023 End: 01-02-2023 ambulatory TANIA WALSH Facility:[facility] Start: 01-02-2023 End: 01-02-2023 Patient encounter procedure Tania Walsh Work Phone: Podiatry Procedures Date Procedure Procedure Detail Performing Clinician Start: 01-30-2017 End: 01-30-2017 Dietary management education, guidance, and counseling Michael Benz Start: 01-30-2017 End: 01-30-2017 Follow Up Appt 6 months Jaspreet Rubalcava MD Start: 01-30-2017 End: 01-30-2017 PFM Jaspreet Rubalcava MD Start: 08-08-2016 End: 10-30-2016 *Hepatic Function Panel Jaspreet Rubalcava MD Start: 08-08-2016 End: 10-18-2016 Lipid 1996 panel - Serum or Plasma Jaspreet Rubalcava MD Start: 08-08-2016 End: 08-08-2016 Dietary management education, guidance, and counseling Renata Mccann Start: 08-08-2016 End: 10-30-2016 *Hepatic Function Panel Jaspreet Rubalcava MD Start: 08-08-2016 End: 10-18-2016 Lipid panel [AGGREGATE] Jaspreet Rubalcava MD Start: 02-01-2016 End: 02-01-2016 Follow Up Appt 6 months Jaspreet Rubalcava MD Start: 02-01-2016 End: 02-01-2016 PFM Jaspreet Rubalcava MD Start: 02-01-2016 End: 02-01-2016 Follow Up Appt 6 months Jaspreet Rubalcava MD Start: 02-01-2016 End: 02-01-2016 PFM Jaspreet Rubalcava MD Start: 11-14-2015 End: 10-30-2016 *Hepatic Function Panel Jaspreet Rubalcava MD Start: 11-14-2015 End: 10-30-2016 Lipid 1996 panel - Serum or Plasma Jaspreet Rubalcava MD Start: 11-14-2015 End: 10-30-2016 *Hepatic Function Panel Jaspreet Rubalcava MD Start: 11-14-2015 End: 10-30-2016 Lipid 1996 panel - Serum or Plasma Jaspreet Rubalcava MD Start: 08-03-2015 End: 08-03-2015 Ecg routine ecg w/least 12 lds w/i&r Jaspreet Rubalcava MD Start: 08-03-2015 End: 08-03-2015 Electrocardiogram, complete Jaspreet jordan MD Start: 01-19-2015 End: 05-16-2015 *Hepatic Function Panel Jaspreet Rubalcava MD Start: 01-19-2015 End: 01-20-2015 Documentation of current medications Jaspreet Rubalcava MD Start: 01-19-2015 End: 01-19-2015 Follow Up Appt 6 months Jaspreet Rubalcava MD Start: 01-19-2015 End: 05-15-2015 Follow Up Appt Other Jaspreet Rubalcava MD Start: 01-19-2015 End: 05-15-2015 Lipid 1996 panel - Serum or Plasma Jaspreet Rubalcava MD Start: 01-19-2015 End: 01-19-2015 PFM Jaspreet Rubalcava MD Start: 01-19-2015 End: 05-16-2015 *Hepatic Function Panel Jaspreet Rubalcava MD Start: 01-19-2015 End: 01-20-2015 Documentation of current medications Jaspreet Rubalcava MD Start: 01-19-2015 End: 01-19-2015 Follow Up Appt 6 months Jaspreet Rubalcava MD Start: 01-19-2015 End: 05-15-2015 Follow Up Appt Other Jaspreet Rubalcava MD Start: 01-19-2015 End: 05-15-2015 Lipid panel [AGGREGATE] Jaspreet Rubalcava MD Start: 01-19-2015 End: 01-19-2015 PFM Jaspreet Rubalcava MD Start: 10-20-2014 End: 11-02-2014 *BMP Jaspreet Rubalcava MD Start: 10-20-2014 End: 11-02-2014 *BMP Jaspreet Rubalcava MD Start: 09-28-2014 End: 10-06-2014 *Hepatic Function Panel Jaspreet Rubalcava MD Start: 09-28-2014 End: 10-06-2014 *Hepatic Function Panel Jaspreet Rubalcava MD Start: 09-07-2014 End: 10-06-2014 *BMP Jaspreet Rubalcava MD Start: 09-07-2014 End: 10-06-2014 *BMP Jaspreet Rubalcava MD Start: 08-12-2014 End: 08-17-2014 *Hepatic Function Panel Jaspreet Rubalcava MD Start: 08-12-2014 End: 08-17-2014 Lipid 1996 panel - Serum or Plasma Jaspreet Rubalcava MD Start: 08-12-2014 End: 08-17-2014 *Hepatic Function Panel Jaspreet Rubalcava MD Start: 08-12-2014 End: 08-17-2014 Lipid panel [AGGREGATE] Jaspreet Rubalcava MD Start: 07-21-2014 End: 07-22-2014 Documentation of current medications Jaspreet Rubalcava MD Start: 07-21-2014 End: 07-21-2014 Follow Up Appt 6 months Jaspreet Rubalcava MD Start: 07-21-2014 End: 07-21-2014 PFM Jaspreet Rubalcava MD Start: 07-21-2014 End: 07-22-2014 Documentation of current medications Jaspreet Rubalcava MD Start: 07-21-2014 End: 07-21-2014 Follow Up Appt 6 months Jaspreet Rubalcava MD Start: 07-21-2014 End: 07-21-2014 PFM Jaspreet Rubalcava MD Start: 01-12-2014 End: 02-11-2014 *Hepatic Function Panel Jaspreet Rubalcava MD Start: 01-12-2014 End: 02-11-2014 Lipid 1996 panel - Serum or Plasma Jaspreet Rubalcava MD Start: 01-12-2014 End: 02-11-2014 *Hepatic Function Panel Jaspreet Rubalcava MD Start: 01-12-2014 End: 02-11-2014 Lipid panel [AGGREGATE] Jaspreet Rubalcava MD Start: 01-05-2014 End: 01-05-2014 Follow Up Appt 6 months Jaspreet Rubalcava MD Start: 01-05-2014 End: 01-05-2014 PFM Jaspreet Rubalcava MD Start: 01-05-2014 End: 01-05-2014 Follow Up Appt 6 months Jaspreet Rubalcava MD Start: 01-05-2014 End: 01-05-2014 PFM Jaspreet Rubalcava MD Start: 07-13-2013 End: 08-09-2013 *Hepatic Function Panel Jaspreet Rubalcava MD Start: 07-13-2013 End: 08-09-2013 Lipid 1996 panel - Serum or Plasma Jaspreet Rubalcava MD Start: 07-13-2013 End: 08-09-2013 *Hepatic Function Panel Jaspreet Rubalcava MD Start: 07-13-2013 End: 08-09-2013 Lipid panel [AGGREGATE] Jaspreet Rubalcava MD Start: 06-28-2013 End: 06-28-2013 Ecg routine ecg w/least 12 lds w/i&r Jaspreet Rubalcava MD Start: 06-28-2013 End: 01-05-2014 Echocardiography Jaspreet Rubalcava MD Start: 06-28-2013 End: 06-28-2013 Follow Up Appt 6 months Jaspreet Rubalcava MD Start: 06-28-2013 End: 06-28-2013 PFM Jaspreet Rubalcava MD Start: 06-28-2013 End: 01-05-2014 Echocardiography Jaspreet Rubalcava MD Start: 06-28-2013 End: 06-28-2013 Electrocardiogram, complete Jaspreet jordan MD Start: 06-28-2013 End: 06-28-2013 Follow Up Appt 6 months Jaspreet Rubalcava MD Start: 06-28-2013 End: 06-28-2013 PFM Jaspreet Rubalcava MD Start: 12-13-2012 End: 01-27-2013 *Hepatic Function Panel Jaspreet Rubalcava MD Start: 12-13-2012 End: 01-27-2013 Lipid 1996 panel - Serum or Plasma Jaspreet Rubalcava MD Start: 12-13-2012 End: 01-27-2013 *Hepatic Function Panel Jaspreet Rubalcava MD Start: 12-13-2012 End: 01-27-2013 Lipid panel [AGGREGATE] Jaspreet Rubalcava MD Start: 11-23-2012 End: 02-11-2014 PFM Jaspreet Rubalcava MD Start: 11-23-2012 End: 02-11-2014 PFM Jaspreet Rubalcava MD Start: 06-12-2012 End: 07-10-2012 *Hepatic Function Panel Jaspreet Rubalcava MD Start: 06-12-2012 End: 07-10-2012 Lipid 1996 panel - Serum or Plasma Jaspreet Rubalcava MD Start: 06-12-2012 End: 07-10-2012 *Hepatic Function Panel Jaspreet Rubalcava MD Start: 06-12-2012 End: 07-10-2012 Lipid panel [AGGREGATE] Jaspreet Rubalcava MD Start: 05-04-2012 End: 05-04-2012 Ecg routine ecg w/least 12 lds w/i&r Jaspreet Rubalcava MD Start: 05-04-2012 End: 02-11-2014 Follow Up Appt 6 months Jaspreet Rubalcava MD Start: 05-04-2012 End: 05-04-2012 Electrocardiogram, complete Jaspreet jordan MD Start: 05-04-2012 End: 02-11-2014 Follow Up Appt 6 months Jaspreet Rubalcava MD Start: 10-17-2011 End: 01-01-2012 *Hepatic Function Panel Jaspreet Rubalcava MD Start: 10-17-2011 End: 02-11-2014 Follow Up Appt 6 months Jaspreet Rubalcava MD Start: 10-17-2011 End: 01-01-2012 Lipid 1996 panel - Serum or Plasma Jaspreet Rubalcava MD Start: 10-17-2011 End: 01-01-2012 *Hepatic Function Panel Jaspreet Rubalcava MD Start: 10-17-2011 End: 02-11-2014 Follow Up Appt 6 months Jaspreet Rubalcava MD Start: 10-17-2011 End: 01-01-2012 Lipid panel [AGGREGATE] Jaspreet Rubalcava MD Start: 06-13-2011 End: 06-13-2011 Ecg routine ecg w/least 12 lds w/i&r Jaspreet Rubalcava MD Start: 06-13-2011 End: 02-11-2014 Echocardiography Jaspreet Rubalcava MD Start: 06-13-2011 End: 06-13-2011 Follow Up Appt 4 months Jaspreet Rubalcava MD Start: 06-13-2011 End: 02-11-2014 Echocardiography Jaspreet Rubalcava MD Start: 06-13-2011 End: 06-13-2011 Electrocardiogram, complete Jaspreet jordan MD Start: 06-13-2011 End: 06-13-2011 Follow Up Appt 4 months Jaspreet Rubalcava MD Start: 03-14-2011 End: 03-14-2011 Follow Up Appt 3 months Jaspreet Rubalcava MD Start: 03-14-2011 End: 03-14-2011 Follow Up Appt 3 months Jaspreet Rubalcava MD Start: 10-05-2008 Colonoscopy Tania Vázquez Work Phone: Plan of Treatment Date Care Activity Detail Author Start: 09-27-2023 3 comp foot exam completed DIABETIC FOOT EXAM [facility] Start: 12-13-2022 Influenza vaccination Influenza Vaccine (#1) [facility] Start: 04-26-2022 3 comp foot exam completed DIABETIC FOOT EXAM [facility] Start: 04-14-2022 ADVANCE DIRECTIVE DISCUSSION ADVANCE DIRECTIVE DISCUSSION [facility] Start: 04-14-2022 DEPRESSION ASSESSMENT DEPRESSION ASSESSMENT [facility] Start: 12-13-2021 Influenza vaccination [facility] Start: 05-11-2021 COVID-19 VACCINE (4 - Booster for Pfizer series) COVID-19 VACCINE (4 - Booster for Pfizer series) [facility] Start: 05-03-2021 COVID-19 VACCINE (4 - Booster for Pfizer series) COVID-19 VACCINE (4 - Booster for Pfizer series) [facility] Start: 04-14-2021 ADVANCE DIRECTIVE DISCUSSION ADVANCE DIRECTIVE DISCUSSION [facility] Start: 04-14-2021 DEPRESSION ASSESSMENT DEPRESSION ASSESSMENT [facility] Start: 04-05-2021 COVID-19 VACCINE (4 - Booster for Pfizer series) COVID-19 VACCINE (4 - Booster for Pfizer series) [facility] Start: 04-05-2021 Covid-19 Vaccine (4 - Pfizer risk series) Covid-19 Vaccine (4 - Pfizer risk series) [facility] Start: 10-05-2018 Colonoscopy COLONOSCOPY [facility] Start: 10-05-2018 COLORECTAL CANCER SCREENING COLORECTAL CANCER SCREENING [facility] Start: 10-30-2017 Hepatitis B surface antibody level LDL CHOLESTEROL [facility] Start: 10-02-2017 End: 10-02-2017 Appointment Appointment [facility] Work Phone: Start: 08-08-2017 Hepatitis B surface antibody level LDL Cholesterol [facility] Start: 04-21-2017 End: 10-30-2016 *Hepatic Function Panel *Hepatic Function Panel [facility] Work Phone: Start: 04-21-2017 End: 10-30-2016 Lipid 1996 panel *Lipid Profile CC PCP [facility] Work Phone: Start: 04-21-2017 End: 10-30-2016 *Hepatic Function Panel *Hepatic Function Panel [facility] Work Phone: Start: 04-21-2017 End: 10-30-2016 Lipid 1996 panel *Lipid Profile CC PCP [facility] Work Phone: Start: 01-30-2017 End: 01-30-2017 Appointment Appointment [facility] Work Phone: Start: 01-30-2017 End: 01-30-2017 Appointment Appointment [facility] Work Phone: Start: 01-30-2017 End: 01-30-2017 Follow Up Appt 6 months Follow Up Appt 6 months [facility] Work Phone: Start: 01-30-2017 End: 01-30-2017 PFM PFM [facility] Work Phone: Start: 08-08-2016 End: 10-30-2016 *Hepatic Function Panel *Hepatic Function Panel [facility] Work Phone: Start: 08-08-2016 End: 08-08-2016 Follow Up Appt 6 months Follow Up Appt 6 months [facility] Work Phone: Start: 08-08-2016 End: 10-18-2016 Lipid 1996 panel *Lipid Profile CC PCP [facility] Work Phone: Start: 08-08-2016 End: 08-08-2016 PFM PFM [facility] Work Phone: Start: 08-08-2016 End: 10-30-2016 *Hepatic Function Panel *Hepatic Function Panel [facility] Work Phone: Start: 08-08-2016 End: 08-08-2016 Follow Up Appt 6 months Follow Up Appt 6 months [facility] Work Phone: Start: 08-08-2016 End: 10-18-2016 Lipid panel [AGGREGATE] *Lipid Profile CC PCP [facility] Work Phone: Start: 08-08-2016 End: 08-08-2016 PFM PFM [facility] Work Phone: Start: 02-01-2016 End: 02-01-2016 Follow Up Appt 6 months Follow Up Appt 6 months [facility] Work Phone: Start: 02-01-2016 End: 02-01-2016 PFM PFM [facility] Work Phone: Start: 02-01-2016 End: 02-01-2016 Follow Up Appt 6 months Follow Up Appt 6 months [facility] Work Phone: Start: 02-01-2016 End: 02-01-2016 PFM PFM [facility] Work Phone: Start: 11-14-2015 End: 10-30-2016 *Hepatic Function Panel *Hepatic Function Panel [facility] Work Phone: Start: 11-14-2015 End: 10-30-2016 Lipid 1996 panel *Lipid Profile CC PCP [facility] Work Phone: Start: 11-14-2015 End: 10-30-2016 *Hepatic Function Panel *Hepatic Function Panel [facility] Work Phone: Start: 11-14-2015 End: 10-30-2016 Lipid panel [AGGREGATE] *Lipid Profile CC PCP [facility] Work Phone: Start: 08-25-2015 Hepatitis B surface antibody level LDL CHOLESTEROL [facility] Start: 08-16-2015 PNEUMOVAX AGE 65 AND OVER WITH 5YR LOOKBACK (#1) PNEUMOVAX AGE 65 AND OVER WITH 5YR LOOKBACK (#1) [facility] Start: 08-03-2015 End: 08-03-2015 Ecg routine ecg w/least 12 lds w/i&r EKG (In office) [facility] Work Phone: Start: 08-03-2015 End: 08-03-2015 Follow Up Appt 6 months Follow Up Appt 6 months [facility] Work Phone: Start: 08-03-2015 End: 08-03-2015 Nuclear stress test -Lexiscan Nuclear stress test -Lexiscan [facility] Work Phone: Start: 08-03-2015 End: 08-03-2015 PFM PFM [facility] Work Phone: Start: 08-03-2015 End: 08-03-2015 Electrocardiogram, complete EKG (In office) [facility] Work Phone: Start: 08-03-2015 End: 08-03-2015 Follow Up Appt 6 months Follow Up Appt 6 months [facility] Work Phone: Start: 08-03-2015 End: 08-03-2015 Nuclear stress test -Lexiscan Nuclear stress test -Lexiscan [facility] Work Phone: Start: 08-03-2015 End: 08-03-2015 PFM PFM [facility] Work Phone: Start: 01-19-2015 End: 05-16-2015 *Hepatic Function Panel *Hepatic Function Panel [facility] Work Phone: Start: 01-19-2015 End: 01-19-2015 Follow Up Appt 6 months Follow Up Appt 6 months [facility] Work Phone: Start: 01-19-2015 End: 05-15-2015 Follow Up Appt Other Follow Up Appt Other [facility] Work Phone: Start: 01-19-2015 End: 05-15-2015 Lipid 1996 panel *Lipid Profile CC PCP [facility] Work Phone: Start: 01-19-2015 End: 01-19-2015 PFM PFM [facility] Work Phone: Start: 01-19-2015 End: 05-16-2015 *Hepatic Function Panel *Hepatic Function Panel [facility] Work Phone: Start: 01-19-2015 End: 01-19-2015 Follow Up Appt 6 months Follow Up Appt 6 months [facility] Work Phone: Start: 01-19-2015 End: 05-15-2015 Follow Up Appt Other Follow Up Appt Other [facility] Work Phone: Start: 01-19-2015 End: 05-15-2015 Lipid panel [AGGREGATE] *Lipid Profile CC PCP [facility] Work Phone: Start: 01-19-2015 End: 01-19-2015 PFM PFM [facility] Work Phone: Start: 11-24-2014 Hemoglobin A1c/Hemoglobin.total in Blood HBA1C [facility] Start: 10-20-2014 End: 11-02-2014 *BMP *BMP [facility] Work Phone: Start: 10-20-2014 End: 11-02-2014 *BMP *BMP [facility] Work Phone: Start: 09-28-2014 End: 10-06-2014 *Hepatic Function Panel *Hepatic Function Panel [facility] Work Phone: Start: 09-28-2014 End: 10-06-2014 *Hepatic Function Panel *Hepatic Function Panel [facility] Work Phone: Start: 09-07-2014 End: 10-06-2014 *BMP *BMP [facility] Work Phone: Start: 09-07-2014 End: 09-07-2014 Follow Up Appt Other Follow Up Appt Other [facility] Work Phone: Start: 09-07-2014 End: 09-07-2014 PFM PFM [facility] Work Phone: Start: 09-07-2014 End: 10-06-2014 *BMP *BMP [facility] Work Phone: Start: 09-07-2014 End: 09-07-2014 Follow Up Appt Other Follow Up Appt Other [facility] Work Phone: Start: 09-07-2014 End: 09-07-2014 PFM PFM [facility] Work Phone: Start: 08-12-2014 End: 08-17-2014 *Hepatic Function Panel *Hepatic Function Panel [facility] Work Phone: Start: 08-12-2014 End: 08-17-2014 Lipid 1996 panel *Lipid Profile CC PCP [facility] Work Phone: Start: 08-12-2014 End: 08-17-2014 *Hepatic Function Panel *Hepatic Function Panel [facility] Work Phone: Start: 08-12-2014 End: 08-17-2014 Lipid panel [AGGREGATE] *Lipid Profile CC PCP [facility] Work Phone: Start: 07-21-2014 End: 07-21-2014 Follow Up Appt 6 months Follow Up Appt 6 months [facility] Work Phone: Start: 07-21-2014 End: 07-21-2014 PFM PFM [facility] Work Phone: Start: 07-21-2014 End: 07-21-2014 Follow Up Appt 6 months Follow Up Appt 6 months [facility] Work Phone: Start: 07-21-2014 End: 07-21-2014 PFM PFM [facility] Work Phone: Start: 01-12-2014 End: 02-11-2014 *Hepatic Function Panel *Hepatic Function Panel [facility] Work Phone: Start: 01-12-2014 End: 02-11-2014 Lipid 1996 panel *Lipid Profile CC PCP [facility] Work Phone: Start: 01-12-2014 End: 02-11-2014 *Hepatic Function Panel *Hepatic Function Panel [facility] Work Phone: Start: 01-12-2014 End: 02-11-2014 Lipid panel [AGGREGATE] *Lipid Profile CC PCP [facility] Work Phone: Start: 01-05-2014 End: 01-05-2014 Follow Up Appt 6 months Follow Up Appt 6 months [facility] Work Phone: Start: 01-05-2014 End: 01-05-2014 PFM PFM [facility] Work Phone: Start: 01-05-2014 End: 01-05-2014 Follow Up Appt 6 months Follow Up Appt 6 months [facility] Work Phone: Start: 01-05-2014 End: 01-05-2014 PFM PFM [facility] Work Phone: Start: 07-13-2013 End: 08-09-2013 *Hepatic Function Panel *Hepatic Function Panel [facility] Work Phone: Start: 07-13-2013 End: 08-09-2013 Lipid 1996 panel *Lipid Profile CC [facility] Work Phone: Start: 07-13-2013 End: 08-09-2013 *Hepatic Function Panel *Hepatic Function Panel [facility] Work Phone: Start: 07-13-2013 End: 08-09-2013 Lipid panel [AGGREGATE] *Lipid Profile CC PCP [facility] Work Phone: Start: 06-28-2013 End: 06-28-2013 Ecg routine ecg w/least 12 lds w/i&r EKG (In office) [facility] Work Phone: Start: 06-28-2013 End: 06-28-2013 Echocardiography Echocardiogram (complete) [facility] Work Phone: Start: 06-28-2013 End: 06-28-2013 Follow Up Appt 6 months Follow Up Appt 6 months [facility] Work Phone: Start: 06-28-2013 End: 06-28-2013 PFM PFM [facility] Work Phone: Start: 06-28-2013 End: 06-28-2013 Echocardiography Echocardiogram (complete) [facility] Work Phone: Start: 06-28-2013 End: 06-28-2013 Electrocardiogram, complete EKG (In office) [facility] Work Phone: Start: 06-28-2013 End: 06-28-2013 Follow Up Appt 6 months Follow Up Appt 6 months [facility] Work Phone: Start: 06-28-2013 End: 06-28-2013 PFM PFM [facility] Work Phone: Start: 12-13-2012 End: 01-27-2013 *Hepatic Function Panel *Hepatic Function Panel [facility] Work Phone: Start: 12-13-2012 End: 01-27-2013 Lipid 1996 panel *Lipid Profile [facility] Work Phone: Start: 12-13-2012 End: 01-27-2013 *Hepatic Function Panel *Hepatic Function Panel [facility] Work Phone: Start: 12-13-2012 End: 01-27-2013 Lipid panel [AGGREGATE] *Lipid Profile [facility] Work Phone: Start: 11-23-2012 End: 11-23-2012 Follow Up Appt 6 months Follow Up Appt 6 months [facility] Work Phone: Start: 11-23-2012 End: 02-11-2014 PFM PFM [facility] Work Phone: Start: 11-23-2012 End: 11-23-2012 Follow Up Appt 6 months Follow Up Appt 6 months [facility] Work Phone: Start: 11-23-2012 End: 02-11-2014 PFM PFM [facility] Work Phone: Start: 06-12-2012 End: 07-10-2012 *Hepatic Function Panel *Hepatic Function Panel [facility] Work Phone: Start: 06-12-2012 End: 07-10-2012 Lipid 1996 panel *Lipid Profile [facility] Work Phone: Start: 06-12-2012 End: 07-10-2012 *Hepatic Function Panel *Hepatic Function Panel [facility] Work Phone: Start: 06-12-2012 End: 07-10-2012 Lipid panel [AGGREGATE] *Lipid Profile [facility] Work Phone: Start: 05-04-2012 End: 05-04-2012 Ecg routine ecg w/least 12 lds w/i&r EKG (In office) [facility] Work Phone: Start: 05-04-2012 End: 02-11-2014 Follow Up Appt 6 months Follow Up Appt 6 months [facility] Work Phone: Start: 05-04-2012 End: 05-04-2012 Electrocardiogram, complete EKG (In office) [facility] Work Phone: Start: 05-04-2012 End: 02-11-2014 Follow Up Appt 6 months Follow Up Appt 6 months [facility] Work Phone: Start: 10-17-2011 End: 01-01-2012 *Hepatic Function Panel *Hepatic Function Panel [facility] Work Phone: Start: 10-17-2011 End: 02-11-2014 Follow Up Appt 6 months Follow Up Appt 6 months [facility] Work Phone: Start: 10-17-2011 End: 01-01-2012 Lipid 1996 panel *Lipid Profile [facility] app Phone: Start: 10-17-2011 End: 01-01-2012 *Hepatic Function Panel *Hepatic Function Panel [facility] [employer] Work Phone: Start: 10-17-2011 End: 02-11-2014 Follow Up Appt 6 months Follow Up Appt 6 months [facility] Work Phone: Start: 10-17-2011 End: 01-01-2012 Lipid panel [AGGREGATE] *Lipid Profile [facility] Work Phone: Start: 06-13-2011 End: 06-13-2011 Ecg routine ecg w/least 12 lds w/i&r EKG (In office) [facility] Work Phone: Start: 06-13-2011 End: 06-13-2011 Echocardiography Echocardiogram (complete) [facility] Work Phone: Start: 06-13-2011 End: 06-13-2011 Follow Up Appt 4 months Follow Up Appt 4 months [facility] Work Phone: Start: 06-13-2011 End: 06-13-2011 Echocardiography Echocardiogram (complete) [facility] Work Phone: Start: 06-13-2011 End: 06-13-2011 Electrocardiogram, complete EKG (In office) [facility] Work Phone: Start: 06-13-2011 End: 06-13-2011 Follow Up Appt 4 months Follow Up Appt 4 months [facility] Work Phone: Start: 03-14-2011 End: 03-14-2011 Follow Up Appt 3 months Follow Up Appt 3 months [facility] Work Phone: Start: 03-14-2011 End: 03-14-2011 Follow Up Appt 3 months Follow Up Appt 3 months [facility] Work Phone: Start: 2010 Hepatitis B Vaccine (1 of 3 - Risk 3-dose series) Hepatitis B Vaccine (1 of 3 - Risk 3-dose series) [facility] Start: 2000 SHINGRIX VACCINE (1 of 2) SHINGRIX VACCINE (1 of 2) [facility] Start: 08-16-1995 COLOGUARD (FIT-DNA) COLOGUARD (FIT-DNA) [facility] Start: 08-16-[address] COLONOGRAPHY [facility] Start: 08-16-1995 FECAL OCCULT BLOOD FECAL OCCULT BLOOD [facility] Start: 08-16-1995 SIGMOIDOSCOPY SIGMOIDOSCOPY [facility] Start: 1969 SHINGRIX VACCINE (1 of 2) SHINGRIX VACCINE (1 of 2) [facility] Start: 1969 Urine microalbumin profile [facility] Start: 1968 ANNUAL PCP TEAM CHRONIC DISEASE VISIT ANNUAL PCP TEAM CHRONIC DISEASE VISIT [facility] Start: 1968 HEPATITIS C SCREENING HEPATITIS C SCREENING [facility] Start: 1962 Adult depression screening assessment DEPRESSION SCREENING [facility] Start: 1960 Hepatitis B screening URINE ALBUMIN:CREATININE RATIO [facility] Start: 1960 Hepatitis C antibody, confirmatory test DILATED RETINAL EXAM [facility] Start: 1956 Pneumococcal Vaccine: 65+ (1 - PCV) Pneumococcal Vaccine: 65+ (1 - PCV) [facility] Start: 1956 PNEUMOCOCCAL: 65+ (1 - PCV) PNEUMOCOCCAL: 65+ (1 - PCV) [facility] Patient Education [facility] Work Phone: [facility] Immunizations Immunization Date Immunization Notes Care Provider [facility] 01-03-2022 influenza virus vaccine, unspecified formulation Tania Walsh Work Phone: [facility] 01-12-2011 influenza virus vaccine, unspecified formulation Tania Walsh Work Phone: [facility] Work Phone: Payers Date Payer Category Payer Medicare [id number] 2019 Unknown MMO MMO MEDICARE SUPPLEMENT [id number] 2019-Present [phone] [address] [place] [address] Indemnity [id number] 2019 Unknown MMO MMO MEDICARE SUPPLEMENT [id number] 2019-Present [phone] [address] [place] [address] Indemnity [id number] 2015 Medicare MEDICARE MEDICAR E A AND B [id number] 2015-Present [phone] [place] [address] Medicare [id number] 2015 Medicare MEDICARE MEDICAR E A AND B [id number] 2015-Present [phone] [place] [address] Medicare [id number] 2015 Medicare [id number] Social History Date Type Detail Facility Start: 05-07-2018 Tobacco smoking stat us IDIS Never smoked tobacco [facility] Start: 04-26-2021 End: 08-18-2022 Alcohol intake Current drinker of alcohol (finding) [facility] Start: 1950 Sex Assigned At Not on file [facility] Start: 07-30-2021 End: 03-14-2022 Exposure to SARS-CoV-2 (event) Not sure [facility] Start: 05-07-2018 Tobacco use and exposure Smoke less tobacco non-user [facility] Start: 03-14-2022 End: 01-02-2023 Alcohol intake Ex-drinker (finding) [facility] Start: 09-26-2022 End: 01-02-2023 History of Social function [facility] Start: 09-26-2022 End: 01-02-2023 Tobacco use panel [facility] National Score (1-10 0), lower number is lower risk 55 [facility] Start: 01-02-2023 Alcohol Comment [facility] Clinical Notes 08-09-2021 to 04-03-2023 Tania Walsh - 01/02/2023 1:18 PM Sia Rowe RN - 01/02/2023 1:03 PM EDTMattwatson Walsh - 09/26/2022 1:16 PM EDTTmurphy Roldan MA - 09/26/2022 12:53 PM EDTPatient Instructions Note Date & Type Note Facility 04-03-2023 Note HNO ID: [id number] Author: Tania Walsh Service: ? Author Type: Physician Type: Progress Notes Filed: 04/03/2023 10:44 PM Note Text: Last time saw pcp: not documented in chart. Subjective: Patient presents to clinic c/o painful toenails. They state that the nails are especially painful with shoe gear and pressure. Patient states that nails b/l hallux are painful. Patient admits to being diabetic. No other pedal complaints at this time. Patient states no change in medications or medical history since last visit. Objective: Patient presents to clinic ambulating in sneakers Vasc: DP and PT pulses are palpable bilateral. CFT is less than 5 seconds bilateral. Skin temperature is warm to cool proximal to distal bilateral. There is mild edema or varicosities noted. Neuro: Protective sensation is intact to the foot and toes when tested with the 5.07 SWM bilateral. Vibratory sensation is decreased at the hallux IPJ bilateral. The hallux is downgoing bilateral. Derm: Nails 1-5 b/l are painful, discolored-yellow, thick, crumbly, dystrophic and with subungal debris. B/l hallux appears incurvated with pain. No signs of infection. Skin is of normal turgor, texture and hair growth is present bilateral. There are no hyperkeratosis, ulcerations, scars, verruca or other lesions noted. Ortho: Muscle strength is 5/5 for all pedal groups tested. Ankle joint DF is full with the knee extended with no pain or crepitus noted. 1st MPJ ROM is full bilateral. Assessment: (B35.1) Onychomycosis (primary encounter diagnosis) (M79.675) Pain in toe of left foot (M79.674) Pain in toe of right foot (E11.42) Diabetic polyneuropathy associated with type 2 diabetes mellitus (HCC) (L60.0) Ingrowing toenail of right foot (L85.9) Hyperkeratosis Plan: Patient was seen and evaluated. Nails 1-5 bilateral were debrided in length and thickness. Discussed ingrowing toenail of b/l hallux. No signs of infection. I do feel these ingrown toenails to b/l hallux will likely be a constant painful problem for patient. Discussed partial vs total nail matrixectomy. Patinet not interested at this time. Slant back debridement was performed. Small bleed to b/l hallux . Band aide applied. Callus reduced to right hallux with dremmel. Patient was instructed on the continued importance of diabetic foot care along with proper diet and keeping their blood sugar under control to prevent complications. Patient is to RTC in 3-4 months. Tania Walsh DPM [facility] 04-03-2023 Note HNO ID: [id number] Author: Sia Kat RN Service: ? Author Type: Registered Nurse Type: Progress Notes Filed: 04/03/2023 10:44 PM Note Text: Patient presents with: Left Foot - Established Patient, Follow Up, Diabetic Foot Care Right Foot - Established Patient, Follow Up, Diabetic Foot Care Patient presents for diabetic foot care. TATIANA 01/02/23 [facility] 01-02-2023 Note HNO ID: [id number] Author: Tania Walsh Service: ? Author Type: Physician Type: Progress Notes Filed: 01/02/2023 1:22 PM Note Text: Last saw pcp: 02/21/22 Subjective: Patient presents to clinic c/o painful toenails. They state that the nails are especially painful with shoe gear and pressure. Patient states that nails 1-5 b/l are painful. Patient admits to being diabetic. Patient reports having rubbed a sore to the back of his right ankle. He was wearing shoes without socks and this led to a sore. He is treating with band aide and it does appear to be healing. No other pedal complaints at this time. Patient states no change in medications or medical history since last visit. Objective: [facility] Vasc: DP and PT pulses are faintly palpable bilateral. CFT is less than 5 seconds bilateral. Skin temperature is warm to cool proximal to distal bilateral. There is mild edema or varicosities noted. Neuro: Protective sensation is intact to the foot and toes when tested with the 5.07 SWM bilateral. Vibratory sensation is decreased at the hallux IPJ bilateral. The hallux is downgoing bilateral. Derm: Nails 1-5 b/l are painful, discolored-yellow, thick, crumbly, dystrophic and with subungal debris. There is ingrown toenail to b/l hallux. Skin is of normal turgor, texture and hair growth is absent bilateral. There are no hyperkeratosis, ulcerations, scars, verruca or other lesions noted. No ulceration to right ankle. There is area of irritation to lateral ankle Ortho: Muscle strength is 5/5 for all pedal groups tested. Ankle joint DF is decreased with the knee extended with no pain or crepitus noted. 1st MPJ ROM is decreased bilateral. Assessment: (B35.1) Onychomycosis (primary encounter diagnosis) (M79.675) Pain in toe of left foot (M79.674) Pain in toe of right foot (E11.42) Diabetic polyneuropathy associated with type 2 diabetes mellitus (HCC (L60.0) Ingrowing toenail of right foot Plan: Patient was seen and evaluated. Nails 1-5 bilateral were debrided in length and thickness. Small bleed to left hallux. Band aide applid Discussed area of iritation of right lateral ankle. Offered gel padding until healed. He has elected to continue with band aide as he feels it is healing. If he has any issues, he will contact the office. Discussed ingrowing toenail of b/l hallux. He is not interested in matrixectomy. Patient was instructed on the continued importance of diabetic foot care along with proper diet and keeping their blood sugar under control to prevent complications. Patient is to RTC in 3-4 months. Tania Walsh DPM [facility] 01-02-2023 Note HNO ID: [id number] Author: Sia Kat RN Service: ? Author Type: Registered Nurse Type: Progress Notes Filed: 01/02/2023 1:22 PM Note Text: Patient presents with: Left Foot - Established Patient, Follow Up, Diabetic Foot Care Right Foot - Established Patient, Follow Up, Diabetic Foot Care, Ulcer Patient presents for diabetic foot care. Patient states that he has a spot to back of right ankle that was rubbed raw and has been treating it for the last 2 or so months. No bleeding or drainage at this time. Small area of redness. [facility] 01-02-2023 History of Presen t illness Narrative Last saw pcp: 02/21/22 Subjective: Patient presents to clinic c/o painful toenails. They state that the nails are especially painful with shoe gear and pressure. Patient states that nails 1-5 b/l are painful. Patient admits to being diabetic. Patient reports having rubbed a sore to the back of his right ankle. He was wearing shoes without socks and this led to a sore. He is treating with band aide and it does appear to be healing. No other pedal complaints at this time. Patient states no change in medications or medical history since last visit. Objective: [facility] Vasc: DP and PT pulses are faintly palpable bilateral. CFT is less than 5 seconds bilateral. Skin temperature is warm to cool proximal to distal bilateral. There is mild edema or varicosities noted. Neuro: Protective sensation is intact to the foot and toes when tested with the 5.07 SWM bilateral. Vibratory sensation is decreased at the hallux IPJ bilateral. The hallux is downgoing bilateral. Derm: Nails 1-5 b/l are painful, discolored-yellow, thick, crumbly, dystrophic and with subungal debris. There is ingrown toenail to b/l hallux. Skin is of normal turgor, texture and hair growth is absent bilateral. There are no hyperkeratosis, ulcerations, scars, verruca or other lesions noted. No ulceration to right ankle. There is area of irritation to lateral ankle Ortho: Muscle strength is 5/5 for all pedal groups tested. Ankle joint DF is decreased with the knee extended with no pain or crepitus noted. 1st MPJ ROM is decreased bilateral. Assessment: (B35.1) Onychomycosis (primary encounter diagnosis) (M79.675) Pain in toe of left foot (M79.674) Pain in toe of right foot (E11.42) Diabetic polyneuropathy associated with type 2 diabetes mellitus (HCC (L60.0) Ingrowing toenail of right foot Plan: Patient was seen and evaluated. Nails 1-5 bilateral were debrided in length and thickness. Small bleed to left hallux. Band aide applid Discussed area of iritation of right lateral ankle. Offered gel padding until healed. He has elected to continue with band aide as he feels it is healing. If he has any issues, he will contact the office. Discussed ingrowing toenail of b/l hallux. He is not interested in matrixectomy. Patient was instructed on the continued importance of diabetic foot care along with proper diet and keeping their blood sugar under control to prevent complications. Patient is to RTC in 3-4 months. Tania Walsh DPM Patient presents with: Left Foot - Established Patient, Follow Up, Diabetic Foot Care Right Foot - Established Patient, Follow Up, Diabetic Foot Care, Ulcer Patient presents for diabetic foot care. Patient states that he has a spot to back of right ankle that was rubbed raw and has been treating it for the last 2 or so months. No bleeding or drainage at this time. Small area of redness. documented in this encounter [facility] 09-26-2022 Note HNO ID: [id number] Author: Tania Fuenteskristin Service: ? Author Type: Physician Type: Progress Notes Filed: 09/26/2022 1:27 PM Note Text: Last saw pcp: 06/26/22 Subjective: Patient presents to clinic c/o painful toenails. They state that the nails are especially painful with shoe gear and pressure. Patient states that nails b/l hallux are painful. Patient admits to being diabetic No other pedal complaints at this time. Patient states no change in medications or medical history since last visit. Objective: [facility] Vasc: DP and PT pulses are palpable bilateral. CFT is less than 5 seconds bilateral. Skin temperature is warm to cool proximal to distal bilateral. There is no edema or varicosities noted. Neuro: Protective sensation is intact to the foot and toes when tested with the 5.07 SWM bilateral. Vibratory sensation is decreased at the hallux IPJ bilateral. The hallux is downgoing bilateral. Derm: Nails 1-5 b/l are painful, incurvated, discolored-yellow, thick, crumbly, dystrophic and with subungal debris. Skin is of normal turgor, texture and hair growth is present bilateral. There are no hyperkeratosis, ulcerations, scars, verruca or other lesions noted. Ortho: Muscle strength is 5/5 for all pedal groups tested. Ankle joint DF is full with the knee extended with no pain or crepitus noted. 1st MPJ ROM is full bilateral. Assessment: (B35.1) Onychomycosis (primary encounter diagnosis) (M79.675) Pain in toe of left foot (M79.674) Pain in toe of right foot (E11.42) Diabetic polyneuropathy associated with type 2 diabetes mellitus (HCC) (L60.0) Ingrowing toenail of right foot Plan: Patient was seen and evaluated. Nails 1-5 bilateral were debrided in length and thickness. Patietn not interested in removal of toenail. Patient was instructed on the continued importance of diabetic foot care along with proper diet and keeping their blood sugar under control to prevent complications. Patient is to RTC in 3-4 months. Tania Walsh DPM [facility] 09-26-2022 Note HNO ID: [id number] Author: Vivi Roldan MA Service: ? Author Type: Orderly Type: Progress Notes Filed: 09/26/2022 1:27 PM Note Text: Patient presents here today for 3 month nail care. Patient denies any sort of pain today. [facility] 09-26-2022 History of Presen t illness Narrative Last saw pcp: 06/26/22 Subjective: Patient presents to clinic c/o painful toenails. They state that the nails are especially painful with shoe gear and pressure. Patient states that nails b/l hallux are painful. Patient admits to being diabetic No other pedal complaints at this time. Patient states no change in medications or medical history since last visit. Objective: [facility] V[facility]: DP and PT pulses are palpable bilateral. CFT is less than 5 seconds bilateral. Skin temperature is warm to cool proximal to distal bilateral. There is no edema or varicosities noted. Neuro: Protective sensation is intact to the foot and toes when tested with the 5.07 SWM bilateral. Vibratory sensation is decreased at the hallux IPJ bilateral. The hallux is downgoing bilateral. Derm: Nails 1-5 b/l are painful, incurvated, discolored-yellow, thick, crumbly, dystrophic and with subungal debris. Skin is of normal turgor, texture and hair growth is present bilateral. There are no hyperkeratosis, ulcerations, scars, verruca or other lesions noted. Ortho: Muscle strength is 5/5 for all pedal groups tested. Ankle joint DF is full with the knee extended with no pain or crepitus noted. 1st MPJ ROM is full bilateral. Assessment: (B35.1) Onychomycosis (primary encounter diagnosis) (M79.675) Pain in toe of left foot (M79.674) Pain in toe of right foot (E11.42) Diabetic polyneuropathy associated with type 2 diabetes mellitus (HCC) (L60.0) Ingrowing toenail of right foot Plan: Patient was seen and evaluated. Nails 1-5 bilateral were debrided in length and thickness. Patietn not interested in removal of toenail. Patient was instructed on the continued importance of diabetic foot care along with proper diet and keeping their blood sugar under control to prevent complications. Patient is to RTC in 3-4 months. Tania Walsh DPM Patient presents here today for 3 month nail care. Patient denies any sort of pain today. documented in this encounter [facility] 06-20-2022 Note HNO ID: [id number] Author: Tania Walsh Service: ? Author Type: Physician Type: Progress Notes Filed: 06/20/2022 1:20 PM Note Text: Last saw pcp: 04/17/22 Subjective: Patient presents to clinic c/o painful toenails. They state that the nails are especially painful with shoe gear and pressure. Patient states that nails b/l hallux are painful. Patient admits to being diabetic No other pedal complaints at this time. Patient states no change in medications or medical history since last visit. Objective: Patient presents to clinic ambulating in diabetic shoes Vasc: DP and PT pulses are faintly palpable bilateral. CFT is less than 5 seconds bilateral. Skin temperature is warm to cool proximal to distal bilateral. There is mild edema or varicosities noted. Neuro: Protective sensation is intact to the foot and toes when tested with the 5.07 SWM bilateral. Vibratory sensation is decreased at the hallux IPJ bilateral. The hallux is downgoing bilateral. Derm: Nails 1-5 b/l are painful, discolored-yellow, thick, crumbly, dystrophic and with subungal debris. B/l hallux is ingrowing with pain and no signs of infection. Skin is of normal turgor, texture and hair growth is absent bilateral. There are callus to right hallux. no ulcerations, scars, verruca or other lesions noted. Ortho: Muscle strength is 5/5 for all pedal groups tested. Ankle joint DF is decreased with the knee extended with no pain or crepitus noted. 1st MPJ ROM is decreased bilateral. Assessment: (B35.1) Onychomycosis (primary encounter diagnosis) (M79.675) Pain in toe of left foot (M79.674) Pain in toe of right foot (E11.42) Diabetic polyneuropathy associated with type 2 diabetes mellitus (HCC) (L60.0) Ingrowing toenail of right foot Plan: Patient was seen and evaluated. Nails 1-5 bilateral were debrided in length and thickness. Again discussed ingrown to b/l hallux. Discussed partial matrixectomy. He is not interested at this time. Small bleed to b/l hallux. Band aide applied. Callus was reduced with dremmel to right hallux. Continue with diabetic shoes Patient was instructed on the continued importance of diabetic foot care along with proper diet and keeping their blood sugar under control to prevent complications. Patient is to RTC in 3-4 months. Tania Walsh DPM [facility] 06-20-2022 Note HNO ID: [id number] Author: Anna Lopez LPN Service: ? Author Type: LICENSED NURSE Type: Progress Notes Filed: 06/20/2022 1:20 PM Note Text: AMB ROOMING INTAKE FLOWSHEET DATA Patient presents with: Left Foot - Established Patient, Follow Up, Diabetic Foot Care Right Foot - Established Patient, Follow Up, Diabetic Foot Care Anna Lopez LPN [facility] 06-20-2022 Instructions Tania Walsh - 06/20/2022 1:07 PM EST Diabetes Foot Care Instructions When you have diabetes, proper foot care is very important. Poor foot care may lead to amputation of a foot or leg. As a person with diabetes, you are more vulnerable to foot problems, because diabetes can damage your nerves and reduce blood flow to your feet. Here are some diabetes foot care tips to follow: Wash and Dry Your Feet Daily Use mild soaps Use warm water Pat your skin dry; do not rub. Thoroughly dry your feet. After washing, use lotion on your feet to prevent cracking. Do not put lotion between your toes. Examine Your Feet Each Day Check the tops and bottoms of your feet. Have someone else look at your feet if you cannot see them. Check for dry, cracked skin. Look for blisters, cuts, scratches, or other sores. Check for redness, increased warmth, or tenderness when touching any area of your feet. Check for ingrown toenails, corns, and calluses. If you get a blister or sore from your shoes, do not pop it. Apply a bandage and wear a different pair of shoes. Take Care of Your Toenails Cut toenails after bathing, when they are soft. Cut toenails straight across and smooth with a nail file. Avoid cutting into the corners of toes. Do not cut cuticles. If you have neuropathy (or decreased sensation in your feet) a airconditioning drafting officer should always cut your toenails. Be Careful When Exercising Walk and exercise in comfortable shoes. Do not exercise when you have open sores on your feet. Protect Your Feet With Shoes and Socks Never go barefoot. Always protect your feet by wearing shoes or hard-soled slippers or footwear. Avoid shoes with high heels and pointed toes. Avoid shoes that expose your toes or heels (such as open-toed shoes or sandals). These types of shoes increase your risk for injury and potential infections. Try on new footwear with the type of socks you usually wear. Do not wear new shoes for more than an hour at a time. Change your socks daily. Look and feel inside your shoes before putting them on to make sure there are no foreign objects or rough areas. Avoid tight socks. Wear natural-fiber socks (cotton, wool, or a cotton-wool blend). Wear special shoes if your health care provider recommends them. Wear shoes/boots that will protect your feet from various weather conditions (cold, moisture, etc.). Make sure your shoes fit properly. If you have neuropathy (nerve damage), you may not notice that your shoes are too tight. Perform the footwear test described below. Footwear Test Use this simple test to see if your shoes fit correctly: Stand on a piece of paper. (Make sure you are standing and not sitting, because your foot changes shape when you stand.) Trace the outline of your foot. Trace the outline of your shoe. Compare the tracings: Is the shoe too narrow? Is your foot crammed into the shoe? The shoe should be at least 1/2 inch longer than your longest toe and as wide as your foot. Proper Shoe Choices The following types of shoes are best for people with diabetes Closed toes and heels Leather uppers without a seam inside At least 1/2 inch extra space at the end of your longest toe Inside of shoe should be soft with no rough areas Outer sole should be made of stiff material Shoes should be at least as wide as your feet Tips for Foot Care in Diabetes Don't wait to treat a minor foot problem if you have diabetes. Follow your health care provider's guidelines and first aid guidelines. Report foot injuries and infections to your health care provider immediately. Check water temperature with your elbow, not your foot. Do not use a heating pad on your feet. Do not cross your legs. Do not self-treat your corns, calluses, or other foot problems. Go to your health care provider or airconditioning drafting officer to treat these conditions. documented in this encounter [facility] 06-20-2022 History of Presen t illness Narrative Last saw pcp: 04/17/22 Subjective: Patient presents to clinic c/o painful toenails. They state that the nails are especially painful with shoe gear and pressure. Patient states that nails b/l hallux are painful. Patient admits to being diabetic No other pedal complaints at this time. Patient states no change in medications or medical history since last visit. Objective: Patient presents to clinic ambulating in diabetic shoes Vasc: DP and PT pulses are faintly palpable bilateral. CFT is less than 5 seconds bilateral. Skin temperature is warm to cool proximal to distal bilateral. There is mild edema or varicosities noted. Neuro: Protective sensation is intact to the foot and toes when tested with the 5.07 SWM bilateral. Vibratory sensation is decreased at the hallux IPJ bilateral. The hallux is downgoing bilateral. Derm: Nails 1-5 b/l are painful, discolored-yellow, thick, crumbly, dystrophic and with subungal debris. B/l hallux is ingrowing with pain and no signs of infection. Skin is of normal turgor, texture and hair growth is absent bilateral. There are callus to right hallux. no ulcerations, scars, verruca or other lesions noted. Ortho: Muscle strength is 5/5 for all pedal groups tested. Ankle joint DF is decreased with the knee extended with no pain or crepitus noted. 1st MPJ ROM is decreased bilateral. Assessment: (B35.1) Onychomycosis (primary encounter diagnosis) (M79.675) Pain in toe of left foot (M79.674) Pain in toe of right foot (E11.42) Diabetic polyneuropathy associated with type 2 diabetes mellitus (HCC) (L60.0) Ingrowing toenail of right foot Plan: Patient was seen and evaluated. Nails 1-5 bilateral were debrided in length and thickness. Again discussed ingrown to b/l hallux. Discussed partial matrixectomy. He is not interested at this time. Small bleed to b/l hallux. Band aide applied. Callus was reduced with dremmel to right hallux. Continue with diabetic shoes Patient was instructed on the continued importance of diabetic foot care along with proper diet and keeping their blood sugar under control to prevent complications. Patient is to RTC in 3-4 months. Tania Walsh DPM AMB ROOMING INTAKE FLOWSHEET DATA Patient presents with: Left Foot - Established Patient, Follow Up, Diabetic Foot Care Right Foot - Established Patient, Follow Up, Diabetic Foot Care Anna Lopez LPN documented in this encounter [facility] 03-14-2022 Instructions Tania Walsh - 03/14/2022 1:08 PM EST Diabetes Foot Care Instructions When you have diabetes, proper foot care is very important. Poor foot care may lead to amputation of a foot or leg. As a person with diabetes, you are more vulnerable to foot problems, because diabetes can damage your nerves and reduce blood flow to your feet. Here are some diabetes foot care tips to follow: Wash and Dry Your Feet Daily Use mild soaps Use warm water Pat your skin dry; do not rub. Thoroughly dry your feet. After washing, use lotion on your feet to prevent cracking. Do not put lotion between your toes. Examine Your Feet Each Day Check the tops and bottoms of your feet. Have someone else look at your feet if you cannot see them. Check for dry, cracked skin. Look for blisters, cuts, scratches, or other sores. Check for redness, increased warmth, or tenderness when touching any area of your feet. Check for ingrown toenails, corns, and calluses. If you get a blister or sore from your shoes, do not pop it. Apply a bandage and wear a different pair of shoes. Take Care of Your Toenails Cut toenails after bathing, when they are soft. Cut toenails straight across and smooth with a nail file. Avoid cutting into the corners of toes. Do not cut cuticles. If you have neuropathy (or decreased sensation in your feet) a airconditioning drafting officer should always cut your toenails. Be Careful When Exercising Walk and exercise in comfortable shoes. Do not exercise when you have open sores on your feet. Protect Your Feet With Shoes and Socks Never go barefoot. Always protect your feet by wearing shoes or hard-soled slippers or footwear. Avoid shoes with high heels and pointed toes. Avoid shoes that expose your toes or heels (such as open-toed shoes or sandals). These types of shoes increase your risk for injury and potential infections. Try on new footwear with the type of socks you usually wear. Do not wear new shoes for more than an hour at a time. Change your socks daily. Look and feel inside your shoes before putting them on to make sure there are no foreign objects or rough areas. Avoid tight socks. Wear natural-fiber socks (cotton, wool, or a cotton-wool blend). Wear special shoes if your health care provider recommends them. Wear shoes/boots that will protect your feet from various weather conditions (cold, moisture, etc.). Make sure your shoes fit properly. If you have neuropathy (nerve damage), you may not notice that your shoes are too tight. Perform the footwear test described below. Footwear Test Use this simple test to see if your shoes fit correctly: Stand on a piece of paper. (Make sure you are standing and not sitting, because your foot changes shape when you stand.) Trace the outline of your foot. Trace the outline of your shoe. Compare the tracings: Is the shoe too narrow? Is your foot crammed into the shoe? The shoe should be at least 1/2 inch longer than your longest toe and as wide as your foot. Proper Shoe Choices The following types of shoes are best for people with diabetes Closed toes and heels Leather uppers without a seam inside At least 1/2 inch extra space at the end of your longest toe Inside of shoe should be soft with no rough areas Outer sole should be made of stiff material Shoes should be at least as wide as your feet Tips for Foot Care in Diabetes Don't wait to treat a minor foot problem if you have diabetes. Follow your health care provider's guidelines and first aid guidelines. Report foot injuries and infections to your health care provider immediately. Check water temperature with your elbow, not your foot. Do not use a heating pad on your feet. Do not cross your legs. Do not self-treat your corns, calluses, or other foot problems. Go to your health care provider or airconditioning drafting officer to treat these conditions. documented in this encounter [facility] 03-14-2022 History of Presen t illness Narrative Last saw PCP: 02/21/22 Subjective: Patient presents to clinic c/o painful toenails. They state that the nails are especially painful with shoe gear and pressure. Patient states that nails b/l hallux are painful. Patient admits to being diabetic. No other pedal complaints at this time. Patient states no change in medications or medical history since last visit. Objective: [facility] V[facility]: DP pulses are faintly bilateral. Posterior tibial pulses are nonpalpable. CFT is less than 5 seconds bilateral. Skin temperature is warm to cool proximal to distal bilateral. There is mild edema or varicosities noted. Neuro: Protective sensation is decreased to the foot and toes when tested with the 5.07 SWM bilateral. Vibratory sensation is absent at the hallux IPJ bilateral. The hallux is downgoing bilateral. Derm: Nails 1-5 b/l are painful, discolored-yellow, thick, crumbly, dystrophic and with subungal debris. Skin is thin, dry, pallor and hair growth is absent bilateral. There are no hyperkeratosis, ulcerations, scars, verruca or other lesions noted. Ortho: Muscle strength is 5/5 for all pedal groups tested. Ankle joint DF is decreased with the knee extended with no pain or crepitus noted. 1st MPJ ROM is decreased bilateral. Assessment: (B35.1) Onychomycosis (primary encounter diagnosis) (M79.675) Pain in toe of left foot (M79.674) Pain in toe of right foot (E11.42) Diabetic polyneuropathy associated with type 2 diabetes mellitus (HCC) (L60.0) Ingrowing toenail of right foot Plan: Patient was seen and evaluated. Nails 1-5 bilateral were debrided in length and thickness. Small bleed to b/l hallux at site of ingrown. Band aide applied. We discussed removal in past but patient is not interested. Patient was instructed on the continued importance of diabetic foot care along with proper diet and keeping their blood sugar under control to prevent complications. Patient is to RTC in 3-4 months. Tania Walsh DPM Patient presents with: Left Foot - Established Patient, Follow Up, nail care Right Foot - Established Patient, Follow Up, nail care documented in this encounter [facility] 11-29-2021 History of Presen t illness Narrative Last time he saw Dr. Tovar: not in chart Subjective: Patient presents to clinic c/o painful toenails. They state that the nails are especially painful with shoe gear and pressure. Patient states that nails b/l hallux are painful. Patient admits to being diabetic . No other pedal complaints at this time. Patient states no change in medications or medical history since last visit. Objective: Patient presents to clinic ambulating in new balance shoes with diabetic inserts Vasc: DP and PT pulses are palpable bilateral. CFT is less than 5 seconds bilateral. Skin temperature is warm to cool proximal to distal bilateral. There is mild edema or varicosities noted. Neuro: Protective sensation is decreased to the foot and toes when tested with the 5.07 SWM bilateral. Vibratory sensation is absent at the hallux IPJ bilateral. The hallux is downgoing bilateral. Derm: Nails 1-5 b/l are painful, discolored-yellow, thick, crumbly, dystrophic and with subungal debris. B/l hallux is ingrowing without infection. Skin is of normal turgor, texture and hair growth is present bilateral. There is callus to right first metatarsal. No ulcerations, scars, verruca or other lesions noted. Ortho: Muscle strength is 5/5 for all pedal groups tested. Ankle joint DF is decreased with the knee extended with no pain or crepitus noted. 1st MPJ ROM is decreased bilateral. Assessment: (B35.1) Onychomycosis (primary encounter diagnosis) (M79.675) Pain in toe of left foot (M79.674) Pain in toe of right foot (E11.42) Diabetic polyneuropathy associated with type 2 diabetes mellitus (HCC) (L85.9) Hyperkeratosis Plan: Patient was seen and evaluated. Nails 1-5 bilateral were debrided in length and thickness. Small bleed to right hallux and b/l 2nd toe. Band aide applied. Again discussed matrixectomy for b/l hallux toenail. Patient is not interested. Small callus present to right 1st metatarsal. In order to perform a complete physical exam, limited shaving of callus area was performed. This incidental service is integral to the evaluation and management visit in order to appropriately manage and treat the patient (for their complaint or for this visit). Patient was instructed on the continued importance of diabetic foot care along with proper diet and keeping their blood sugar under control to prevent complications. Patient is to RTC in 3-4 months. Tania Walsh DPM AMB ROOMING INTAKE FLOWSHEET DATA Risk Screening Do you have concerns about personal safety or safety in the home?: No Patient presents with: Left Foot - Established Patient, Follow Up, Diabetic Foot Care Right Foot - Established Patient, Follow Up, Diabetic Foot Care Anna Lopez LPN documented in this encounter [facility] 11-29-2021 Instructions Tania Villanuevanilda - 11/29/2021 11:56 AM EDT Diabetes Foot Care Instructions When you have diabetes, proper foot care is very important. Poor foot care may lead to amputation of a foot or leg. As a person with diabetes, you are more vulnerable to foot problems, because diabetes can damage your nerves and reduce blood flow to your feet. Here are some diabetes foot care tips to follow: Wash and Dry Your Feet Daily Use mild soaps Use warm water Pat your skin dry; do not rub. Thoroughly dry your feet. After washing, use lotion on your feet to prevent cracking. Do not put lotion between your toes. Examine Your Feet Each Day Check the tops and bottoms of your feet. Have someone else look at your feet if you cannot see them. Check for dry, cracked skin. Look for blisters, cuts, scratches, or other sores. Check for redness, increased warmth, or tenderness when touching any area of your feet. Check for ingrown toenails, corns, and calluses. If you get a blister or sore from your shoes, do not pop it. Apply a bandage and wear a different pair of shoes. Take Care of Your Toenails Cut toenails after bathing, when they are soft. Cut toenails straight across and smooth with a nail file. Avoid cutting into the corners of toes. Do not cut cuticles. If you have neuropathy (or decreased sensation in your feet) a airconditioning drafting officer should always cut your toenails. Be Careful When Exercising Walk and exercise in comfortable shoes. Do not exercise when you have open sores on your feet. Protect Your Feet With Shoes and Socks Never go barefoot. Always protect your feet by wearing shoes or hard-soled slippers or footwear. Avoid shoes with high heels and pointed toes. Avoid shoes that expose your toes or heels (such as open-toed shoes or sandals). These types of shoes increase your risk for injury and potential infections. Try on new footwear with the type of socks you usually wear. Do not wear new shoes for more than an hour at a time. Change your socks daily. Look and feel inside your shoes before putting them on to make sure there are no foreign objects or rough areas. Avoid tight socks. Wear natural-fiber socks (cotton, wool, or a cotton-wool blend). Wear special shoes if your health care provider recommends them. Wear shoes/boots that will protect your feet from various weather conditions (cold, moisture, etc.). Make sure your shoes fit properly. If you have neuropathy (nerve damage), you may not notice that your shoes are too tight. Perform the footwear test described below. Footwear Test Use this simple test to see if your shoes fit correctly: Stand on a piece of paper. (Make sure you are standing and not sitting, because your foot changes shape when you stand.) Trace the outline of your foot. Trace the outline of your shoe. Compare the tracings: Is the shoe too narrow? Is your foot crammed into the shoe? The shoe should be at least 1/2 inch longer than your longest toe and as wide as your foot. Proper Shoe Choices The following types of shoes are best for people with diabetes Closed toes and heels Leather uppers without a seam inside At least 1/2 inch extra space at the end of your longest toe Inside of shoe should be soft with no rough areas Outer sole should be made of stiff material Shoes should be at least as wide as your feet Tips for Foot Care in Diabetes Don't wait to treat a minor foot problem if you have diabetes. Follow your health care provider's guidelines and first aid guidelines. Report foot injuries and infections to your health care provider immediately. Check water temperature with your elbow, not your foot. Do not use a heating pad on your feet. Do not cross your legs. Do not self-treat your corns, calluses, or other foot problems. Go to your health care provider or airconditioning drafting officer to treat these conditions. documented in this encounter [facility] 08-09-2021 History of Presen t illness Narrative Last saw Daria Tovar: patient does not know when he last saw Dr. Tovar Subjective: Patient presents to clinic c/o painful toenails. They state that the nails are especially painful with shoe gear and pressure. Patient states that nails b/l hallux b/l are painful. Patient admits to being diabetic. No other pedal complaints at this time. Patient states no change in medications or medical history since last visit. Objective: Patient presents to clinic ambulating in diabetic shoes Vasc: DP and PT pulses are palpable bilateral. CFT is less than 5 seconds bilateral. Skin temperature is warm to cool proximal to distal bilateral. There is no edema or varicosities noted. Neuro: Protective sensation is intact to the foot and toes when tested with the 5.07 SWM bilateral. Vibratory sensation is decreased at the hallux IPJ bilateral. The hallux is downgoing bilateral. Derm: Nails 1-5 b/l are painful, discolored-yellow, thick, crumbly, dystrophic and with subungal debris. B/l hallux ingrowing nail without infection. Skin is of normal turgor, texture and hair growth is present bilateral. There are no hyperkeratosis, ulcerations, scars, verruca or other lesions noted. Ortho: Muscle strength is 5/5 for all pedal groups tested. Ankle joint DF is full with the knee extended with no pain or crepitus noted. 1st MPJ ROM is full bilateral. Assessment: (B35.1) Onychomycosis (primary encounter diagnosis) (M79.675) Pain in toe of left foot (M79.674) Pain in toe of right foot (E11.42) Diabetic polyneuropathy associated with type 2 diabetes mellitus (HCC) Plan: Patient was seen and evaluated. Nails 1-5 bilateral were debrided in length and thickness. He gets ingrown to b/l hallux. Discussed matrixectomy. Patient is not interested at this time He has history of callus of right hallux . No callus on exam. Continue with diabetic shoes and inserts and lotion. Patient was instructed on the continued importance of diabetic foot care along with proper diet and keeping their blood sugar under control to prevent complications. Patient is to RTC in 3-4 months. Tania Walsh DPM AMB ROOMING INTAKE FLOWSHEET DATA Risk Screening Do you have concerns about personal safety or safety in the home?: No Patient presents with: Right Foot - Established Patient, Nail Check Left Foot - Established Patient, Nail Check documented in this encounter [facility] 08-09-2021 Instructions Tania Walsh - 08/09/2021 1:39 PM EDT Diabetes Foot Care Instructions When you have diabetes, proper foot care is very important. Poor foot care may lead to amputation of a foot or leg. As a person with diabetes, you are more vulnerable to foot problems, because diabetes can damage your nerves and reduce blood flow to your feet. Here are some diabetes foot care tips to follow: Wash and Dry Your Feet Daily Use mild soaps Use warm water Pat your skin dry; do not rub. Thoroughly dry your feet. After washing, use lotion on your feet to prevent cracking. Do not put lotion between your toes. Examine Your Feet Each Day Check the tops and bottoms of your feet. Have someone else look at your feet if you cannot see them. Check for dry, cracked skin. Look for blisters, cuts, scratches, or other sores. Check for redness, increased warmth, or tenderness when touching any area of your feet. Check for ingrown toenails, corns, and calluses. If you get a blister or sore from your shoes, do not pop it. Apply a bandage and wear a different pair of shoes. Take Care of Your Toenails Cut toenails after bathing, when they are soft. Cut toenails straight across and smooth with a nail file. Avoid cutting into the corners of toes. Do not cut cuticles. If you have neuropathy (or decreased sensation in your feet) a airconditioning drafting officer should always cut your toenails. Be Careful When Exercising Walk and exercise in comfortable shoes. Do not exercise when you have open sores on your feet. Protect Your Feet With Shoes and Socks Never go barefoot. Always protect your feet by wearing shoes or hard-soled slippers or footwear. Avoid shoes with high heels and pointed toes. Avoid shoes that expose your toes or heels (such as open-toed shoes or sandals). These types of shoes increase your risk for injury and potential infections. Try on new footwear with the type of socks you usually wear. Do not wear new shoes for more than an hour at a time. Change your socks daily. Look and feel inside your shoes before putting them on to make sure there are no foreign objects or rough areas. Avoid tight socks. Wear natural-fiber socks (cotton, wool, or a cotton-wool blend). Wear special shoes if your health care provider recommends them. Wear shoes/boots that will protect your feet from various weather conditions (cold, moisture, etc.). Make sure your shoes fit properly. If you have neuropathy (nerve damage), you may not notice that your shoes are too tight. Perform the footwear test described below. Footwear Test Use this simple test to see if your shoes fit correctly: Stand on a piece of paper. (Make sure you are standing and not sitting, because your foot changes shape when you stand.) Trace the outline of your foot. Trace the outline of your shoe. Compare the tracings: Is the shoe too narrow? Is your foot crammed into the shoe? The shoe should be at least 1/2 inch longer than your longest toe and as wide as your foot. Proper Shoe Choices The following types of shoes are best for people with diabetes Closed toes and heels Leather uppers without a seam inside At least 1/2 inch extra space at the end of your longest toe Inside of shoe should be soft with no rough areas Outer sole should be made of stiff material Shoes should be at least as wide as your feet Tips for Foot Care in Diabetes Don't wait to treat a minor foot problem if you have diabetes. Follow your health care provider's guidelines and first aid guidelines. Report foot injuries and infections to your health care provider immediately. Check water temperature with your elbow, not your foot. Do not use a heating pad on your feet. Do not cross your legs. Do not self-treat your corns, calluses, or other foot problems. Go to your health care provider or airconditioning drafting officer to treat these conditions. documented in this encounter [facility] Diagnosis Onychomycosis- Primary Dermatophytosis of nail Pain in toe of left foot Pain in limb Pain in toe of right foot Pain in limb Diabetic polyneuropathy associated with type 2 diabetes mellitus (HCC) Hyperkeratosis Acquired keratoderma documented [facility] Diagnosis Onychomycosis- Primary Dermatophytosis of nail Pain in toe of left foot Pain in limb Pain in toe of right foot Pain in limb Diabetic polyneuropathy associated with type 2 diabetes mellitus (HCC) Ingrowing toenail of right foot Ingrowing nail [facility] Diagnosis Onychomycosis- Primary Dermatophytosis of nail Pain in toe of left foot Pain in limb Pain in toe of right foot Pain in limb Diabetic polyneuropathy associated with type 2 diabetes mellitus (HCC) Ingrowing toenail of right foot Ingrowing nail [facility] Diagnosis Onychomycosis- Primary Dermatophytosis of nail Pain in toe of left foot Pain in limb Pain in toe of right foot Pain in limb Diabetic polyneuropathy associated with type 2 diabetes mellitus (HCC) Ingrowing toenail of right foot Ingrowing nail [facility] Diagnosis Onychomycosis- Primary Dermatophytosis of nail Pain in toe of left foot Pain in limb Pain in toe of right foot Pain in limb Diabetic polyneuropathy associated with type 2 diabetes mellitus (HCC) Ingrowing toenail of right foot Ingrowing nail documented in this encounter [facility] Summary Purpose Family History No Family History Records Found Advance Directives No Advanced Directives Records Found Additional Source Comments Source Comments (unrecognize d section and content) In the event this informatio n is protected by the Federal Confidentiality of Alcohol and Drug Abuse Patient Records regulations: The Federal rules restrict any use of the information to criminally investigate or prosecute any alcohol or drug abuse patient.[facility] the event this information is protected by the Federal Confidentiality of Alcohol and Drug Abuse Patient Records regulations: The Federal rules restrict any use of the information to criminally investigate or prosecute any alcohol or drug abuse patient.[facility] the event this information is protected by the Federal Confidentiality of Alcohol and Drug Abuse Patient Records regulations: The Federal rules restrict any use of the information to criminally investigate or prosecute any alcohol or drug abuse patient.[facility] the event this information is protected by the Federal Confidentiality of Alcohol and Drug Abuse Patient Records regulations: The Federal rules restrict any use of the information to criminally investigate or prosecute any alcohol or drug abuse patient.[facility] the event this information is protected by the Federal Confidentiality of Alcohol and Drug Abuse Patient Records regulations: The Federal rules restrict any use of the information to criminally investigate or prosecute any alcohol or drug abuse patient.[facility] the event this information is protected by the Federal Confidentiality of Alcohol and Drug Abuse Patient Records regulations: The Federal rules restrict any use of the information to criminally investigate or prosecute any alcohol or drug abuse patient.[facility] Reason for Visit (unrecogniz ed section and content) Reason Comments Established Patient Follow Up Diabetic Foot Care Reason Comments Established Patient Follow Up nail care Reason Comments Follow Up nail care Reason Comments Established Patient Follow Up Diabetic Foot Care Ulcer Care Teams (unrecognized sec tion and content) Machine Worker Relationship Specialty Start Date End Date Daria Tovar [id number] [place] [address] PCP - General Family Practice 10/23/17 Machine Worker Relationship Specialty Start Date End Date Daria Tovar [address] [place], [place] [address] PCP - General Family Medicine 10/23/17 Machine Worker Relationship Specialty Start Date End Date Daria TovarDO [address] [place] [address] PCP - General Family Medicine 10/23/17 Machine Worker Relationship Specialty Start Date End Date LaDaria PrafulDO [address] [place] [address] PCP - General Family Medicine 10/23/17 Machine Worker Relationship Specialty Start Date End Date Daria Tovar DO [address] [place] [address] PCP - General Family Medicine 10/23/17 (unrecognized sect ion and content) No Status Records Found INFORMATION SOURCE (unrecogn ized section and content) FOR RECORDS PERTAINING TO PATIENTS WHO ARE OR HAVE BEEN ENROLLED IN A CHEMICAL DEPENDENCY/SUBSTANCEABUSE PROGRAM, SOME INFORMATION MAY BE OMITTED. This clinical summary was aggregated from multiple sources. Caution should be exercised in using it in the provision of clinical care. This summary normalizes information from multiple sources, and as a consequence, information in this document may materially change the coding, format and clinical context of patient data. In addition, data may be omitted in some cases. CLINICAL DECISIONS SHOULD BE BASED ON THE PRIMARY CLINICAL RECORDS. [employer] [facility]. provides no warranty or guarantee of the accuracy or completeness of information in this document.
== END | disposition home or self-care (01) ==
LOC: CVS 10:47
PROVIDERS: PCP Family Medicine; Referring Provider Internal Medicine Cardiovascular Disease; Visit Provider Internal Medicine Cardiovascular Disease
DX: I35.0 Nonrheumatic aortic (valve) stenosis (principal); I50.9 Heart failure, unspecified; I25.10 Atherosclerotic heart disease of native coronary artery without angina pectoris
CPT/HCPCS: 93306; Q9957; A4216; C8929

== ENCOUNTER 2023-05-23 06:34 | Day surgery (SDC) | payer MEDICARE, OTHER, SELFPAY ==
--- NOTE | 2023-05-23 06:39 | HP.PCM_ITS ---
History and Physical Date of Admission: 05/23/23 Visit Reasons: 1 YEAR RECALL - COLONOSCOPY Chief Complaint: c-scope Is patient in pain?: No Allergies No Known Allergies Allergy (Verified 04/21/23 08:32) Medications albuterol sulfate 90 mcg/actuation aerosol inhaler 2 puff inhalation Q6H PRN PRN Sob &/Or Wheezing 01/28/14 [History Confirmed 04/21/23] budesonide-formoterol HFA 160 mcg-4.5 mcg/actuation aerosol inhaler 2 puff inhalation BID 01/28/14 [History Confirmed 04/21/23] metformin 500 mg tablet 500 mg PO DAILY 01/28/14 [History Confirmed 04/21/23] oxycodone-acetaminophen 5 mg-325 mg tablet 1 tab PO QHS PRN PRN Pain 01/28/14 [History Confirmed 04/21/23] insulin regular human 100 unit/mL injection solution (Humulin R Regular U-100 Insulin) 1 sliding scale dose subcut UD 03/26/18 [History Confirmed 04/21/23] bdcaukyl-rtcglkv-ile-iron 3 mg-folic 200 mcg-phytosterol 400 mg tablet 1 tab PO DAILY 04/01/19 [History Confirmed 04/21/23] zolpidem 5 mg tablet 5 mg PO QHS PRN Insomnia 04/01/19 [History Confirmed 04/21/23] nitroglycerin 0.4 mg sublingual tablet 0.4 mg sublingual .COMPLEX PRN Chest Pain #25 tabs 11/23/20 [Rx Confirmed 04/21/23] insulin NPH isoph U-100 human 100 unit/mL (3 mL) subcutaneous pen (Humulin N NPH U-100 Insulin KwikPen) 100 unit subcut BID 08/23/21 [History Confirmed 04/21/23] aspirin 81 mg tablet,delayed release (Adult Aspirin Regimen) 81 mg PO DAILY 01/24/22 [History Confirmed 04/21/23] empagliflozin 10 mg tablet (Jardiance) 10 mg PO DAILY 02/21/22 [History Confirmed 04/21/23] tamsulosin 0.4 mg capsule (Flomax) 0.4 mg PO DAILY 04/18/22 [History Confirmed 04/21/23] furosemide 40 mg tablet 40 mg PO DAILY #90 tabs 05/22/22 [Rx Confirmed 04/21/23] atorvastatin 80 mg tablet 80 mg PO QHS #90 tabs 06/20/22 [Rx Confirmed 04/21/23] losartan 50 mg tablet 50 mg PO DAILY #90 tabs 07/04/22 [Rx Confirmed 04/21/23] potassium chloride 20 mEq tablet,extended release 40 meq (2 x 20 mEq) PO DAILY #180 tabs 07/04/22 [Rx Confirmed 04/21/23] carvedilol 25 mg tablet 25 mg PO BID #180 tabs 07/29/22 [Rx Confirmed 04/21/23] clopidogrel 75 mg tablet (Plavix) 75 mg PO QDAY #90 tabs 07/29/22 [Rx Confirmed 04/21/23] PFSH Medical History Arthritis Asthma Asthma Atherosclerosis of [place] coronary artery of [place] heart without angina pectoris Bladder disease Cardiology follow-up encounter Cardiomyopathy, ischemic Chronic systolic congestive heart failure CPAP (continuous positive airway pressure) dependence Diabetes mellitus, type 2 Diastolic dysfunction Dietary restriction Dyspnea on exertion Essential hypertension High cholesterol History of echocardiogram History of edema History of heart attack History of myocardial infarction History of stress test Hypertension Hypertension Insulin dependent diabetes mellitus Loss of hearing Nephrolithiasis Non-smoker Nonrheumatic aortic (valve) stenosis On home oxygen therapy Osteoarthritis Pure hypercholesterolemia Shortness of breath on exertion Wears glasses Surgical History H/O right wrist surgery History of back surgery History of carpal tunnel surgery History of cystoscopy History of elbow surgery History of fasciotomy History of knee surgery Hx of colonoscopy Postsurgical percutaneous transluminal coronary angioplasty (PTCA) status Presence of stent in coronary artery (~03/2010) Family History Father Myocardial infarction Social History Smoking Status: Never smoker alcohol intake: current alcohol intake frequency: holidays/special occasions only substance use type: does not use diet: diabetic caffeine: Yes Type: carbonated beverages HPI HPI HPI: 72-year-old gentleman returns at my request. I assisted him on April 19, 2022 with a colonoscopy. A 22 mm polyp was found in the distal sigmoid colon. It was sessile and required piecemeal resection. Hemostatic clips were placed. This was located 22 cm from the anus. 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 A postprocedural x-ray suggested the hemostatic clip in the proximal rectosigmoid area/ distal sigmoid. Pathology demonstrated fragments of tubulovillous adenoma. Because of the size and piecemeal resection I recommended follow-up colonoscopy at 1 year. The patient is on long-term clopidogrel therapy for heart disease. It is of additional note that he has quite a sizable umbilical hernia. ROS General General: No weight change, appetite, fatigue, colon cancer, breast cancer or weakness HEENT HEENT: Yes eye surgery; No difficulty swallowing, eye injury, swollen glands or hoarseness Endo Endocrine: Yes diabetes mellitus; No thyroid disease, thyroid cancer, Hair loss, heat intolerance or cold intolerance Skin Skin: No rash or changing moles Musc Musculoskeletal: Yes arthritis; No back problems, rheumatoid arthritis, gout or joint pain Cardio Cardiovascular: Yes heart disease, heart attack and heart stent; No murmur, pacemaker, atrial fibrillation, high blood pressure, palpitations, shortness of breat with exertion or chest pain Psych Psychiatric: No depression, anxiety or hearing voices Resp Respiratory: Yes shortness of breath, Yes sleep apnea, No cough, No COPD, Yes asthma, No emphysema and No wheezing Gastro Gastrointestinal: No abdominal pain, No nausea or vomiting, Yes diarrhea, No constipation, No blood in stool, No acid reflux, No hemorrhoids, No ulcers, No gallbladder problem and No black,tarry stools [place] Hematologic: Yes blood thinners, No blood disorders, No bleeding, No anemia and No blood clots Neuro Neurologic: No system reviewed and no additional complaints, except as documented, No as per HPI, No abnormal gait, No abnormal hearing, No abnormal movements, No abnormal speech, No behavioral changes, No burning sensations, No confusion, No convulsions, No disequilibrium, No dizziness, No localized weakness, No frequent falls, No headache(s), No lack of coordination, No loss of vision, No memory loss, No numbness, No other visual disturbances, No radicular pain, No restless legs, No sensory deficit, No syncope, No tingling, No tremor(s), No weakness and No other Exam Const General: cooperative, comfortable and no acute distress [facility] Head: normal to inspection Eyes General: appearance normal, both eyes and all related structures Neck Neck: normal visual inspection Chest Chest palpation & inspection: normal inspection of the chest Resp Effort & Inspection: normal respiratory effort Auscultation: clear to auscultation bilaterally Cardio Rate: regular rate Rhythm: regular rhythm GI Other: Obese, very large umbilical hernia fibrofatty tissue nonreducible. Superior aspect the skin is thinning and just slightly erythematous. No ulceration Musc Cervical Spine: normal cervical lordosis Skin General: no rashes or lesions noted Neuro General: patient alert, patient awake and patient oriented x3 Extrem General: no calf tenderness Other: 2+ bilateral lower extremity edema Assessment and Plan Assessment and Plan (1) Personal history of colonic polyps: Status: Acute Plan: I recommended the patient a colonoscopy with possible biopsy or polypectomy as indicated. We will have him hold his clopidogrel 3 days ahead of time because of the previous piecemeal polyp resection. He has had an opportunity to ask and have questions answered and we will schedule and proceed as noted. Copy: Dr. Mau Gaona M.D., F.A.C.S. (2) Incarcerated umbilical hernia: Status: Acute Plan: I additionally made note today of his significant umbilical hernia. Appears to be significant fibrofatty tissue. Fortunately however he is not symptomatic. The skin superiorly though is becoming thin. Very slightly erythematous likely from the intention. I have cautioned him about the risk of potential ulceration of the skin which would complicate gait surgical intervention. He states that he has not pursued previous attempts at repair because he did not want to be off his clopidogrel for a week. I suggested to him that we could do a direct approach and hold his clopidogrel 3 days preop. He will consider that and will reschedule with me to discuss. Greg Gaona M.D., F.A.C.S. I have examined the patient and the H&P has been reviewed. There are no clinical changes since date of exam. Greg Gaona M.D., F.A.C.S.
[2023-05-23] MEDS: Lactated Ringers 1,000 ML 15 ML IV (06:45)
--- OUTSIDE RECORDS SUMMARY | 2023-05-23 06:46 | XMS RPT_ITS | CCD ---
Author Name Unknown Address [address] [place] [address] Organization [facility] Care Team Providers [employer]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 Name Role Phone Roof CROP DUSTER HELPER, Aamir Hatfield Unavailable CHRISTIANO Galvan, Cherrie Maldonado [...] 5-325 MG TABS As needed OXYCODONE-ACETAMINO PHEN [phone] Jaspreet Rubalcava MD Problems Active Problems Problem [...] (2 sources) Long-term drug therapy; Translations: [Other custodial (current) drug therapy] Onset: 06-29-2010 06-29-2010 Past [...] medical terminology (current) drug therapy; Translations: [Other custodial (current) drug therapy] Onset: 06-29-2010 06-29-2010 Episodic [...] Time Vital Sign Value Performing Clinician Estelita english 01-30-2017 15:47-0400 BMI (Body Mass Index) 38.16 [...] Start: 04-03-2023 End: 04-03-2023 ambulatory TANIA WALSH Facility:[facility] Start: 01-02-2023 End: 01-02-2023 ambulatory TANIA WALSH Facility:[facility] Start: 01-02-2023 End: 01-02-2023 Patient encounter [...] comp foot exam completed DIABETIC FOOT EXAM [facility] Start: 12-13-2022 Influenza vaccination Influenza Vaccine (#1) [facility] Start: 04-26-2022 3 comp foot exam completed DIABETIC FOOT EXAM [facility] Start: 04-14-2022 ADVANCE DIRECTIVE DISCUSSION ADVANCE DIRECTIVE DISCUSSION [facility] Start: 04-14-2022 DEPRESSION ASSESSMENT DEPRESSION ASSESSMENT [facility] Start: 12-13-2021 Influenza vaccination [facility] Start: 05-11-2021 COVID-19 VACCINE (4 - Booster for Pfizer series) COVID-19 VACCINE (4 - Booster for Pfizer series) [facility] Start: 05-03-2021 COVID-19 VACCINE (4 - Booster for Pfizer series) COVID-19 VACCINE (4 - Booster for Pfizer series) [facility] Start: 04-14-2021 ADVANCE DIRECTIVE DISCUSSION ADVANCE DIRECTIVE DISCUSSION [facility] Start: 04-14-2021 DEPRESSION ASSESSMENT DEPRESSION ASSESSMENT [facility] Start: 04-05-2021 COVID-19 VACCINE (4 - Booster for Pfizer series) COVID-19 VACCINE (4 - Booster for Pfizer series) [facility] Start: 04-05-2021 Covid-19 Vaccine (4 - Pfizer risk series) Covid-19 Vaccine (4 - Pfizer risk series) [facility] Start: 10-05-2018 Colonoscopy COLONOSCOPY [facility] Start: 10-05-2018 COLORECTAL CANCER SCREENING COLORECTAL CANCER SCREENING [facility] Start: 10-30-2017 Hepatitis B surface antibody level LDL CHOLESTEROL [facility] Start: 10-02-2017 End: 10-02-2017 Appointment Appointment [facility] Work Phone: Start: 08-08-2017 Hepatitis B surface antibody level LDL Cholesterol [facility] Start: 04-21-2017 End: 10-30-2016 *Hepatic Function Panel *Hepatic Function Panel [facility] Work Phone: Start: 04-21-2017 End: 10-30-2016 Lipid 1996 panel *Lipid Profile CC PCP [facility] Work Phone: Start: 04-21-2017 End: 10-30-2016 *Hepatic Function Panel *Hepatic Function Panel [facility] Work Phone: Start: 04-21-2017 End: 10-30-2016 Lipid 1996 panel *Lipid Profile CC PCP [facility] Work Phone: Start: 01-30-2017 End: 01-30-2017 Appointment Appointment [facility] Work Phone: Start: 01-30-2017 End: 01-30-2017 Appointment Appointment [facility] Work Phone: Start: 01-30-2017 End: 01-30-2017 Follow Up Appt 6 months Follow Up Appt 6 months [facility] Work Phone: Start: 01-30-2017 End: 01-30-2017 PFM PFM [facility] Work Phone: Start: 08-08-2016 End: 10-30-2016 *Hepatic Function Panel *Hepatic Function Panel [facility] Work Phone: Start: 08-08-2016 End: 08-08-2016 Follow Up Appt 6 months Follow Up Appt 6 months [facility] Work Phone: Start: 08-08-2016 End: 10-18-2016 Lipid 1996 panel *Lipid Profile CC PCP [facility] Work Phone: Start: 08-08-2016 End: 08-08-2016 PFM PFM [facility] Work Phone: Start: 08-08-2016 End: 10-30-2016 *Hepatic Function Panel *Hepatic Function Panel [facility] Work Phone: Start: 08-08-2016 [...] 6 months Follow Up Appt 6 months [facility] Work Phone: Start: 02-01-2016 End: 02-01-2016 PFM PFM [facility] Work Phone: Start: 02-01-2016 End: 02-01-2016 Follow Up Appt 6 months Follow Up Appt 6 months [facility] Work Phone: Start: 02-01-2016 End: 02-01-2016 PFM PFM [facility] Work Phone: Start: 11-14-2015 End: 10-30-2016 *Hepatic Function Panel *Hepatic Function Panel [facility] Work Phone: Start: 11-14-2015 End: 10-30-2016 Lipid 1996 panel *Lipid Profile CC PCP [facility] Work Phone: Start: 11-14-2015 End: 10-30-2016 *Hepatic Function Panel *Hepatic Function Panel [facility] Work Phone: Start: 11-14-2015 End: 10-30-2016 Lipid panel [AGGREGATE] *Lipid Profile CC PCP [facility] Work Phone: Start: 08-25-2015 Hepatitis B surface antibody level LDL CHOLESTEROL [facility] Start: 08-16-2015 PNEUMOVAX AGE 65 AND OVER WITH 5YR LOOKBACK (#1) PNEUMOVAX AGE 65 AND OVER WITH 5YR LOOKBACK (#1) [facility] Start: 08-03-2015 End: 08-03-2015 Ecg routine ecg w/least 12 lds w/i&r EKG (In office) [facility] Work Phone: Start: 08-03-2015 End: 08-03-2015 Follow Up Appt 6 months Follow Up Appt 6 months [facility] Work Phone: Start: 08-03-2015 End: 08-03-2015 Nuclear stress test -Lexiscan Nuclear stress test -Lexiscan [facility] Work Phone: Start: 08-03-2015 End: 08-03-2015 PFM PFM [facility] Work Phone: Start: 08-03-2015 End: 08-03-2015 Electrocardiogram, complete EKG (In office) [facility] Work Phone: Start: 08-03-2015 [...] 6 months Follow Up Appt 6 months [facility] Work Phone: Start: 01-19-2015 End: 05-15-2015 Follow Up Appt Other Follow Up Appt Other [facility] Work Phone: Start: 01-19-2015 End: 05-15-2015 Lipid 1996 panel *Lipid Profile CC PCP [facility] Work Phone: Start: 01-19-2015 [...] Up Appt Other Follow Up Appt Other [facility] Work Phone: Start: 01-19-2015 End: 05-15-2015 Lipid panel [AGGREGATE] *Lipid Profile CC PCP [facility] Work Phone: Start: 01-19-2015 End: 01-19-2015 PFM PFM [facility] Work Phone: Start: 11-24-2014 Hemoglobin A1c/Hemoglobin.total in Blood HBA1C [facility] Start: 10-20-2014 End: 11-02-2014 *BMP *BMP [facility] Work Phone: Start: 10-20-2014 End: 11-02-2014 *BMP *BMP [facility] Work Phone: Start: 09-28-2014 End: 10-06-2014 *Hepatic Function Panel *Hepatic Function Panel [facility] Work Phone: Start: 09-28-2014 End: 10-06-2014 *Hepatic Function Panel *Hepatic Function Panel [facility] Work Phone: Start: 09-07-2014 End: 10-06-2014 *BMP *BMP [facility] Work Phone: Start: 09-07-2014 End: 09-07-2014 Follow Up Appt Other Follow Up Appt Other [facility] Work Phone: Start: 09-07-2014 End: 09-07-2014 PFM PFM [facility] Work Phone: Start: 09-07-2014 End: 10-06-2014 *BMP *BMP [facility] Work Phone: Start: 09-07-2014 End: 09-07-2014 Follow Up Appt Other Follow Up Appt Other [facility] Work Phone: Start: 09-07-2014 End: 09-07-2014 PFM PFM [facility] Work Phone: Start: 08-12-2014 End: 08-17-2014 *Hepatic Function Panel *Hepatic Function Panel [facility] Work Phone: Start: 08-12-2014 End: 08-17-2014 Lipid 1996 panel *Lipid Profile CC PCP [facility] Work Phone: Start: 08-12-2014 End: 08-17-2014 *Hepatic Function Panel *Hepatic Function Panel [facility] Work Phone: Start: 08-12-2014 End: 08-17-2014 Lipid panel [AGGREGATE] *Lipid Profile CC PCP [facility] Work Phone: Start: 07-21-2014 End: 07-21-2014 Follow Up Appt 6 months Follow Up Appt 6 months [facility] Work Phone: Start: 07-21-2014 End: 07-21-2014 PFM PFM [facility] Work Phone: Start: 07-21-2014 End: 07-21-2014 Follow Up Appt 6 months Follow Up Appt 6 months [facility] Work Phone: Start: 07-21-2014 End: 07-21-2014 PFM PFM [facility] Work Phone: Start: 01-12-2014 End: 02-11-2014 *Hepatic Function Panel *Hepatic Function Panel [facility] Work Phone: Start: 01-12-2014 End: 02-11-2014 Lipid 1996 panel *Lipid Profile CC PCP [facility] Work Phone: Start: 01-12-2014 End: 02-11-2014 *Hepatic Function Panel *Hepatic Function Panel [facility] Work Phone: Start: 01-12-2014 End: 02-11-2014 Lipid panel [AGGREGATE] *Lipid Profile CC PCP [facility] Work Phone: Start: 01-05-2014 End: 01-05-2014 Follow Up Appt 6 months Follow Up Appt 6 months [facility] Work Phone: Start: 01-05-2014 End: 01-05-2014 PFM PFM [facility] Work Phone: Start: 01-05-2014 End: 01-05-2014 Follow Up Appt 6 months Follow Up Appt 6 months [facility] Work Phone: Start: 01-05-2014 End: 01-05-2014 PFM PFM [facility] Work Phone: Start: 07-13-2013 End: 08-09-2013 *Hepatic Function Panel *Hepatic Function Panel [facility] Work Phone: Start: 07-13-2013 End: 08-09-2013 Lipid 1996 panel *Lipid Profile CC PCP [facility] Work Phone: Start: 07-13-2013 End: 08-09-2013 *Hepatic Function Panel *Hepatic Function Panel [facility] Work Phone: Start: 07-13-2013 End: 08-09-2013 Lipid panel [AGGREGATE] *Lipid Profile CC PCP [facility] Work Phone: Start: 06-28-2013 End: 06-28-2013 Ecg routine ecg w/least 12 lds w/i&r EKG (In office) [facility] Work Phone: Start: 06-28-2013 End: 06-28-2013 Echocardiography Echocardiogram (complete) [facility] Work Phone: Start: 06-28-2013 End: 06-28-2013 Follow Up Appt 6 months Follow Up Appt 6 months [facility] Work Phone: Start: 06-28-2013 End: 06-28-2013 PFM PFM [facility] Work Phone: Start: 06-28-2013 End: 06-28-2013 Echocardiography Echocardiogram (complete) [facility] Work Phone: Start: 06-28-2013 End: 06-28-2013 Electrocardiogram, complete EKG (In office) [facility] Work Phone: Start: 06-28-2013 End: 06-28-2013 Follow Up Appt 6 months Follow Up Appt 6 months [facility] Work Phone: Start: 06-28-2013 End: 06-28-2013 PFM PFM [facility] Work Phone: Start: 12-13-2012 End: 01-27-2013 *Hepatic Function Panel *Hepatic Function Panel [facility] Work Phone: Start: 12-13-2012 End: 01-27-2013 Lipid 1996 panel *Lipid Profile [facility] Work Phone: Start: 12-13-2012 End: 01-27-2013 *Hepatic Function Panel *Hepatic Function Panel [facility] Work Phone: Start: 12-13-2012 End: 01-27-2013 Lipid panel [AGGREGATE] *Lipid Profile [facility] Work Phone: Start: 11-23-2012 End: 11-23-2012 Follow Up Appt 6 months Follow Up Appt 6 months [facility] Work Phone: Start: 11-23-2012 End: 02-11-2014 PFM PFM [facility] Work Phone: Start: 11-23-2012 End: 11-23-2012 Follow Up Appt 6 months Follow Up Appt 6 months [facility] Work Phone: Start: 11-23-2012 End: 02-11-2014 PFM PFM [facility] Work Phone: Start: 06-12-2012 End: 07-10-2012 *Hepatic Function Panel *Hepatic Function Panel [facility] Work Phone: Start: 06-12-2012 End: 07-10-2012 Lipid 1996 panel *Lipid Profile [facility] Work Phone: Start: 06-12-2012 End: 07-10-2012 *Hepatic Function Panel *Hepatic Function Panel [facility] Work Phone: Start: 06-12-2012 End: 07-10-2012 Lipid panel [AGGREGATE] *Lipid Profile [facility] Work Phone: Start: 05-04-2012 End: 05-04-2012 Ecg routine ecg w/least 12 lds w/i&r EKG (In office) [facility] Work Phone: Start: 05-04-2012 End: 02-11-2014 Follow Up Appt 6 months Follow Up Appt 6 months [facility] Work Phone: Start: 05-04-2012 End: 05-04-2012 Electrocardiogram, complete EKG (In office) [facility] Work Phone: Start: 05-04-2012 End: 02-11-2014 Follow Up Appt 6 months Follow Up Appt 6 months [facility] Work Phone: Start: 10-17-2011 End: 01-01-2012 *Hepatic Function Panel *Hepatic Function Panel [facility] Work Phone: Start: 10-17-2011 End: 02-11-2014 Follow Up Appt 6 months Follow Up Appt 6 months [facility] Work Phone: Start: 10-17-2011 End: 01-01-2012 Lipid 1996 panel *Lipid Profile [facility] Phone: Start: 10-17-2011 End: 01-01-2012 *Hepatic Function Panel *Hepatic Function Panel [facility] Work Phone: Start: 10-17-2011 End: 02-11-2014 Follow [...] 4 months Follow Up Appt 4 months [facility] Work Phone: Start: 06-13-2011 End: 06-13-2011 Echocardiography Echocardiogram (complete) [facility] Phone: Start: 06-13-2011 End: 06-13-2011 Electrocardiogram, complete EKG (In office) [facility] Work Phone: Start: 06-13-2011 End: 06-13-2011 Follow Up Appt 4 months Follow Up Appt 4 months [facility] Work Phone: Start: 03-14-2011 [...] (1 of 3 - Risk 3-dose series) [facility] Start: 2000 SHINGRIX VACCINE (1 of 2) SHINGRIX VACCINE (1 of 2) [facility] Start: 08-16-1995 COLOGUARD (FIT-DNA) COLOGUARD (FIT-DNA) [facility] Start: 08-16-[address] COLONOGRAPHY [facility] Start: 08-16-1995 FECAL OCCULT BLOOD FECAL OCCULT BLOOD [facility] Start: 08-16-1995 SIGMOIDOSCOPY SIGMOIDOSCOPY [facility] Start: 1969 SHINGRIX VACCINE (1 of 2) SHINGRIX VACCINE (1 of 2) [facility] Start: 1969 Urine microalbumin profile [facility] Start: 1968 ANNUAL PCP TEAM CHRONIC DISEASE VISIT ANNUAL PCP TEAM CHRONIC DISEASE VISIT [facility] Start: 1968 HEPATITIS C SCREENING HEPATITIS C SCREENING [facility] Start: 1962 Adult depression screening assessment DEPRESSION SCREENING [facility] Start: 1960 Hepatitis B screening URINE ALBUMIN:CREATININE RATIO [facility] Start: 1960 Hepatitis C antibody, confirmatory test DILATED RETINAL EXAM [facility] Start: 1956 Pneumococcal Vaccine: 65+ (1 - PCV) Pneumococcal Vaccine: 65+ (1 - PCV) [facility] Start: 1956 PNEUMOCOCCAL: 65+ (1 - PCV) PNEUMOCOCCAL: 65+ (1 - PCV) [facility] Patient Education [facility] Work Phone: [facility] Immunizations Immunization Date Immunization Notes Care Provider Fa [facility] 01-03-2022 influenza virus vaccine, unspecified formulation Tania Walsh Work Phone: [facility] 01-12-2011 influenza virus vaccine, unspecified formulation Tania Walsh Work Phone: [facility] Work Phone: Payers Date Payer Category Payer Medicare [id number] 2019 Unknown MMO MMO MEDICARE SUPPLEMENT [id number] 2019-Present [phone] [address] [place] [address] Indemnity [id number] 2019 Unknown MMO MMO MEDICARE SUPPLEMENT [id number] 2019-Present [phone] [address] [place] [address] Indemnity [id number] 2015 Medicare MEDICARE MEDICAR E A AND B [id number] 2015-Present [phone] [place] [address] Medicare [id number] 2015 Medicare MEDICARE MEDICAR E A AND B [id number] 2015-Present [phone] [place] [address] Medicare [id number] 2015 Medicare [id number] Social History Date Type Detail Facility Start: 05-07-2018 Tobacco smoking stat us VTIS Never smoked tobacco [facility] Start: 04-26-2021 End: 08-18-2022 Alcohol intake Current drinker of alcohol (finding) [facility] Start: 1950 Sex Assigned At Not on file C [facility] Start: 07-30-2021 End: 03-14-2022 Exposure to SARS-CoV-2 (event) Not sure [facility] Start: 05-07-2018 Tobacco use and exposure Smoke less tobacco non-user [facility] Start: 03-14-2022 End: 01-02-2023 Alcohol intake Ex-drinker (finding) [facility] Start: 09-26-2022 End: 01-02-2023 History of Social function [facility] Start: 09-26-2022 End: 01-02-2023 Tobacco use panel [facility] National Score (1-10 0), lower number is lower risk 55 [facility] Start: 01-02-2023 Alcohol Comment rare [facility] Clinical Notes 08-09-2021 to 04-03-2023 Tania Walsh - 01/02/2023 1:18 PM Sia Rowe RN - 01/02/2023 1:03 PM EDTMattwatson Walsh - 09/26/2022 1:16 PM EDTTmurphy Roldan MA - 09/26/2022 12:53 PM EDTPatient Instructions Note Date & Type Note Facility 04-03-2023 Note HNO ID: [id number] Author: Tania Walsh Service: ? Author Type: [...] RTC in 3-4 months. Tania Walsh DPM [facility] 04-03-2023 Note HNO ID: [id number] Author: Sia Kat RN Service: ? Author Type: Registered Nurse Type: Progress Notes Filed: 04/03/2023 10:44 PM Note Text: Patient presents with: Left Foot - Established Patient, Follow Up, Diabetic Foot Care Right Foot - Established Patient, Follow Up, Diabetic Foot Care Patient presents for diabetic foot care. TATIANA 01/02/23 [facility] 01-02-2023 Note HNO ID: [id number] Author: Tania Walsh Service: ? Author Type: [...] Objective: Patient presents to clinic ambulating in [facility] Vasc: DP and PT pulses are faintly [...] RTC in 3-4 months. Tania Walsh DPM [facility] 01-02-2023 Note HNO ID: [id number] Author: Sia Kat RN Service: ? Author [...] at this time. Small area of redness. [facility] 01-02-2023 History of Presen t illness Narrative [...] Objective: Patient presents to clinic ambulating in [facility] Vasc: DP and PT pulses are faintly [...] area of redness. documented in this encounter [facility] 09-26-2022 Note HNO ID: [id number] Author: Tania Fuenteskristin Service: ? Author Type: [...] Objective: Patient presents to clinic ambulating in [facility] Vasc: DP and PT pulses are palpable [...] RTC in 3-4 months. Tania Walsh DPM [facility] 09-26-2022 Note HNO ID: [id number] Author: Vivi Roldan MA Service: ? Author Type: Analysis Consultant Type: Progress Notes Filed: 09/26/2022 1:27 PM Note Text: Patient presents here today for 3 month nail care. Patient denies any sort of pain today. [facility] 09-26-2022 History of Presen t illness Narrative [...] Objective: [facility]: DP and PT pulses are palpable [...] of pain today. documented in this encounter [facility] 06-20-2022 Note HNO ID: [id number] Author: Tania Walsh Service: ? Author Type: [...] RTC in 3-4 months. Tania Walsh DPM [facility] 06-20-2022 Note HNO ID: [id number] Author: Anna Lopez LPN Service: ? Author Type: LICENSED NURSE Type: Progress Notes Filed: 06/20/2022 1:20 PM Note Text: AMB ROOMING INTAKE FLOWSHEET DATA Patient presents with: Left Foot - Established Patient, Follow Up, Diabetic Foot Care Right Foot - Established Patient, Follow Up, Diabetic Foot Care Anna Lopez LPN [facility] 06-20-2022 Instructions Tania Walsh - 06/20/2022 1:07 [...] (or decreased sensation in your feet) a manager audio should always cut your toenails. Be Careful [...] Go to your health care provider or manager audio to treat these conditions. documented in this encounter [facility] 06-20-2022 History of Presen t illness [...] Anna Lopez LPN documented in this encounter [facility] 03-14-2022 Instructions Tania Walsh - 03/14/2022 [...] (or decreased sensation in your feet) a manager audio should always cut your toenails. Be Careful [...] Go to your health care provider or manager audio to treat these conditions. documented in this encounter [facility] 03-14-2022 History of Presen t illness [...] Objective: Patient presents to clinic ambulating in [facility] Vasc: DP pulses are faintly bilateral. Posterior [...] Up, nail care documented in this encounter [facility] 11-29-2021 History of Presen t illness [...] Anna Lopez LPN documented in this encounter [facility] 11-29-2021 Instructions Tania Villanuevanilda - 11/29/2021 [...] (or decreased sensation in your feet) a manager audio should always cut your toenails. Be Careful [...] Go to your health care provider or manager audio to treat these conditions. documented in this encounter [facility] 08-09-2021 History of Presen t illness [...] Patient, Nail Check documented in this encounter [facility] 08-09-2021 Instructions Tania Walsh - 08/09/2021 [...] (or decreased sensation in your feet) a manager audio should always cut your toenails. Be Careful [...] Go to your health care provider or manager audio to treat these conditions. documented in this encounter [facility] Diagnosis Onychomycosis- Primary Dermatophytosis of nail Pain in toe of left foot Pain in limb Pain in toe of right foot Pain in limb Diabetic polyneuropathy associated with type 2 diabetes mellitus (HCC) Hyperkeratosis Acquired keratoderma [facility] Diagnosis Onychomycosis- Primary Dermatophytosis of nail Pain in toe of left foot Pain in limb Pain in toe of right foot Pain in limb Diabetic polyneuropathy associated with type 2 diabetes mellitus (HCC) Ingrowing toenail of right foot Ingrowing nail [facility] Diagnosis Onychomycosis- Primary Dermatophytosis of nail Pain in toe of left foot Pain in limb Pain in toe of right foot Pain in limb Diabetic polyneuropathy associated with type 2 diabetes mellitus (HCC) Ingrowing toenail of right foot Ingrowing nail [facility] Diagnosis Onychomycosis- Primary Dermatophytosis of nail Pain in toe of left foot Pain in limb Pain in toe of right foot Pain in limb Diabetic polyneuropathy associated with type 2 diabetes mellitus (HCC) Ingrowing toenail of right foot Ingrowing nail [facility] Diagnosis Onychomycosis- Primary Dermatophytosis of nail Pain in toe of left foot Pain in limb Pain in toe of right foot Pain in limb Diabetic polyneuropathy associated with type 2 diabetes mellitus (HCC) Ingrowing toenail of right foot Ingrowing nail documented in this encounter [facility] Summary Purpose Family History No Family [...] or prosecute any alcohol or drug abuse patient.[facility] the event this information is protected by the Federal Confidentiality of Alcohol and Drug Abuse Patient Records regulations: The Federal rules restrict any use of the information to criminally investigate or prosecute any alcohol or drug abuse patient.[facility] the event this information is protected by the Federal Confidentiality of Alcohol and Drug Abuse Patient Records regulations: The Federal rules restrict any use of the information to criminally investigate or prosecute any alcohol or drug abuse patient.[facility] the event this information is protected by the Federal Confidentiality of Alcohol and Drug Abuse Patient Records regulations: The Federal rules restrict any use of the information to criminally investigate or prosecute any alcohol or drug abuse patient.[facility] the event this information is protected by the Federal Confidentiality of Alcohol and Drug Abuse Patient Records regulations: The Federal rules restrict any use of the information to criminally investigate or prosecute any alcohol or drug abuse patient.[facility] the event this information is protected by the Federal Confidentiality of Alcohol and Drug Abuse Patient Records regulations: The Federal rules restrict any use of the information to criminally investigate or prosecute any alcohol or drug abuse patient.[facility] Reason for Visit (unrecogniz ed section and content) Reason Comments Established Patient Follow Up Diabetic Foot Care Reason Comments Established Patient Follow Up nail care Reason Comments Follow Up nail care Reason Comments Established Patient Follow Up Diabetic Foot Care Ulcer Care Teams (unrecognized sec tion and content) [employer]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 Relationship Specialty Start Date End Date Daria Tovar [address] [place] [address] PCP - General Family Practice 10/23/17 [employer]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 Relationship Specialty Start Date End Date Daria Tovar [address] [place], [place] [id number] PCP - General Family Medicine 10/23/17 [employer]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 [employer] [facility]. provides no warranty or guarantee of the accuracy or completeness of information in this document.
[2023-05-23 07:03] VITALS: BP 127/68; PULSE 89; RESP 18; TEMP 36.1; O2SAT 96; BMI 37.3
[2023-05-23 08:05] VITALS: BP 101/81; BP 127/68; PULSE 81; RESP 16; TEMP 36.3; O2SAT 95
--- NOTE | 2023-05-23 08:05 | OP.COLON_ITS ---
Patient Name: Clay Del Rosario Procedure Date: 05/23/2023 7:25 AM Date of : 1950 Age: 72 Procedure: Colonoscopy Indications: High risk colon cancer surveillance: Personal history of colonic polyps Providers: Greg Gaona MD Referring MD: Mau Tovar Medicines: See the Anesthesia note for documentation of the administered medications Patient Profile: Last Colonoscopy: 1 year ago. Complications: No immediate complications. Procedure: Pre-Anesthesia Assessment: - Prior to the procedure, a History and Physical was performed, and patient medications and allergies were reviewed. The patient's tolerance of previous anesthesia was also reviewed. The risks and benefits of the procedure and the sedation options and risks were discussed with the patient. All questions were answered, and informed consent was obtained. Prior Anticoagulants: The patient has taken no anticoagulant or antiplatelet agents. ASA Grade Assessment: II - A patient with mild systemic disease. After reviewing the risks and benefits, the patient was deemed in satisfactory condition to undergo the procedure. After I obtained informed consent, the scope was passed under direct vision. Throughout the procedure, the patient's blood pressure, pulse, and oxygen saturations were monitored continuously. The adult colonoscope was introduced through the anus and advanced to the terminal ileum, with identification of the appendiceal orifice and IC valve. The colonoscopy was performed without difficulty. The patient tolerated the procedure well. The quality of the bowel preparation was fair. The ileocecal valve and the appendiceal orifice were photographed. Scope In: 7:48:04 AM Scope Withdrawal Time 0 hours 10 minutes 35 seconds Scope Out: 8:01:13 AM Total Procedure Duration Time 0 hours 13 minutes 9 seconds Findings: The digital rectal exam findings include non-thrombosed external hemorrhoids, non-thrombosed internal hemorrhoids, internal hemorrhoids that prolapse with straining, but spontaneously regress to the resting position (Grade II) and enlarged prostate. The colon (entire examined portion) appeared normal. Impression: - Preparation of the colon was fair. - Non-thrombosed external hemorrhoids, non-thrombosed internal hemorrhoids, internal hemorrhoids that prolapse with straining, but spontaneously regress to the resting position (Grade II) and enlarged prostate found on digital rectal exam. - The entire examined colon is normal. - No specimens collected. Recommendation: - Discharge patient to home. - Resume previous diet. - Continue present medications. - Repeat colonoscopy in 5 years for surveillance. Procedure Code(s): --- Professional --- 21668, Colonoscopy, flexible; diagnostic, including collection of specimen(s) by brushing or washing, when performed (separate procedure) Diagnosis Code(s): --- Professional --- Z86.010, Personal history of colonic polyps K64.1, Second degree hemorrhoids K64.4, Residual hemorrhoidal skin tags N40.0, Benign prostatic hyperplasia without lower urinary tract symptoms CPT copyright 2021 [employer]. All rights reserved. The codes documented in this report are preliminary and upon shuttler review may be revised to meet current compliance requirements. Greg Gaona MD 05/23/2023 8:05:26 AM This report has been signed electronically. Number of Addenda: 0 Note Initiated On: 05/23/2023 7:25 AM
--- NOTE | 2023-05-23 08:06 | OP.CCLET_ITS ---
05/23/2023 Mau Tovar [address] [place] [address] Re : Colonoscopy procedure for Clay Del Rosario Dear Dr. Tovar This procedure was performed on Tuesday, May 23, 2023. My impressions and recommendations are as follows: Impressions : - Preparation of the colon was fair. - Non-thrombosed external hemorrhoids, non-thrombosed internal hemorrhoids, internal hemorrhoids that prolapse with straining, but spontaneously regress to the resting position (Grade II) and enlarged prostate found on digital rectal exam. - The entire examined colon is normal. - No specimens collected. Recommendations : - Discharge patient to home. - Resume previous diet. - Continue present medications. - Repeat colonoscopy in 5 years for surveillance. My findings are described in the full procedure note, which is enclosed. If I can be of further assistance, please feel free to contact me at Doctor phone number(s): Work: . Sincerely, Greg Gaona MD 05/23/2023 8:05:26 AM This report has been signed electronically.
[2023-05-23 08:10] VITALS: BP 127/68; BP 148/80; PULSE 79; RESP 16; O2SAT 97
[2023-05-23 08:20] VITALS: BP 127/68; BP 131/65; PULSE 80; RESP 16; TEMP 36.5; O2SAT 96
[2023-05-23 08:23] LABS: Bedside Glucose 121 mg/dL (74-106)
[2023-05-23 08:44] VITALS: BP 127/68
== END 2023-05-23 08:49 | disposition home or self-care (01) ==
LOC: EN 06:34 → AC 06:36
PROVIDERS: PCP Family Medicine; Referring Provider Family Medicine; Visit Provider Surgery
PROC: 0DJD8ZZ Inspection of Lower Intestinal Tract, Via Natural or Artificial Opening Endoscopic (ICD-10-PCS; CPT 45378; principal; 2023-05-23 07:25)
DX: K42.0 Umbilical hernia with obstruction, without gangrene (principal); I11.0 Hypertensive heart disease with heart failure; I42.9 Cardiomyopathy, unspecified; I50.22 Chronic systolic (congestive) heart failure; Z79.4 Long term (current) use of insulin; E11.9 Type 2 diabetes mellitus without complications; Z79.84 Long term (current) use of oral hypoglycemic drugs; Z86.010 Personal history of colon polyps; E78.00 Pure hypercholesterolemia, unspecified; I25.10 Atherosclerotic heart disease of native coronary artery without angina pectoris; K64.4 Residual hemorrhoidal skin tags; N40.0 Benign prostatic hyperplasia without lower urinary tract symptoms; Z79.02 Long term (current) use of antithrombotics/antiplatelets; K64.1 Second degree hemorrhoids
CPT/HCPCS: 45378; 82962; J7120; J2405

== ENCOUNTER → 2023-05-26 | Outpatient (CLI) | payer MEDICARE, OTHER, SELFPAY ==
--- OUTSIDE RECORDS SUMMARY | 2023-05-26 10:37 | XMS RPT_ITS | CCD ---
Author Name Unknown Address [address] [place] [address] Organization [facility] Care Team Providers Care Government Affairs Manager Name Role Phone Roof GENERAL LEDGER BOOKKEEPER, Aamir Hatfield Unavailable CHRISTIANO Galvan, Cherrie Maldonado [...] 5-325 MG TABS As needed OXYCODONE-ACETAMINO PHEN [phone] Jaspreet Rubalcava MD Problems Active Problems Problem [...] (2 sources) Long-term drug therapy; Translations: [Other residential (current) drug therapy] Onset: 06-29-2010 06-29-2010 Past [...] 06-29-2010 Episodic Other aftercare (4 sources) Other residential (current) drug therapy; Translations: [Other joint terminal attack controller (current) drug therapy] Onset: 06-29-2010 06-29-2010 Episodic [...] Start: 04-03-2023 End: 04-03-2023 ambulatory TANIA WALSH Facility:[facility] Start: 01-02-2023 End: 01-02-2023 ambulatory TANIA WALSH Facility:[facility] Start: 01-02-2023 End: 01-02-2023 Patient encounter [...] comp foot exam completed DIABETIC FOOT EXAM [facility] Start: 12-13-2022 Influenza vaccination Influenza Vaccine (#1) [facility] Start: 04-26-2022 3 comp foot exam completed DIABETIC FOOT EXAM [facility] Start: 04-14-2022 ADVANCE DIRECTIVE DISCUSSION ADVANCE DIRECTIVE DISCUSSION [facility] Start: 04-14-2022 DEPRESSION ASSESSMENT DEPRESSION ASSESSMENT [facility] Start: 12-13-2021 Influenza vaccination [facility] Start: 05-11-2021 COVID-19 VACCINE (4 - Booster for Pfizer series) COVID-19 VACCINE (4 - Booster for Pfizer series) [facility] Start: 05-03-2021 COVID-19 VACCINE (4 - Booster for Pfizer series) COVID-19 VACCINE (4 - Booster for Pfizer series) [facility] Start: 04-14-2021 ADVANCE DIRECTIVE DISCUSSION ADVANCE DIRECTIVE DISCUSSION [facility] Start: 04-14-2021 DEPRESSION ASSESSMENT DEPRESSION ASSESSMENT [facility] Start: 04-05-2021 COVID-19 VACCINE (4 - Booster for Pfizer series) COVID-19 VACCINE (4 - Booster for Pfizer series) [facility] Start: 04-05-2021 Covid-19 Vaccine (4 - Pfizer risk series) Covid-19 Vaccine (4 - Pfizer risk series) [facility] Start: 10-05-2018 Colonoscopy COLONOSCOPY [facility] Start: 10-05-2018 COLORECTAL CANCER SCREENING COLORECTAL CANCER SCREENING [facility] Start: 10-30-2017 Hepatitis B surface antibody level LDL CHOLESTEROL [facility] Start: 10-02-2017 End: 10-02-2017 Appointment Appointment [facility] Work Phone: Start: 08-08-2017 Hepatitis B surface antibody level LDL Cholesterol [facility] Start: 04-21-2017 End: 10-30-2016 *Hepatic Function Panel *Hepatic Function Panel [facility] Work Phone: Start: 04-21-2017 End: 10-30-2016 Lipid 1996 panel *Lipid Profile CC PCP [facility] Work Phone: Start: 04-21-2017 End: 10-30-2016 *Hepatic Function Panel *Hepatic Function Panel [facility] Work Phone: Start: 04-21-2017 End: 10-30-2016 Lipid 1996 panel *Lipid Profile CC PCP [facility] Work Phone: Start: 01-30-2017 End: 01-30-2017 Appointment Appointment [facility] Work Phone: Start: 01-30-2017 End: 01-30-2017 Appointment Appointment [facility] Work Phone: Start: 01-30-2017 End: 01-30-2017 Follow Up Appt 6 months Follow Up Appt 6 months [facility] Work Phone: Start: 01-30-2017 End: 01-30-2017 PFM PFM [facility] Work Phone: Start: 08-08-2016 End: 10-30-2016 *Hepatic Function Panel *Hepatic Function Panel [facility] Work Phone: Start: 08-08-2016 End: 08-08-2016 Follow Up Appt 6 months Follow Up Appt 6 months [facility] Work Phone: Start: 08-08-2016 End: 10-18-2016 Lipid 1996 panel *Lipid Profile CC PCP [facility] Work Phone: Start: 08-08-2016 End: 08-08-2016 PFM PFM [facility] Work Phone: Start: 08-08-2016 End: 10-30-2016 *Hepatic Function Panel *Hepatic Function Panel [facility] Work Phone: Start: 08-08-2016 End: 08-08-2016 Follow Up Appt 6 months Follow Up Appt 6 months [facility] Work Phone: Start: 08-08-2016 End: 10-18-2016 Lipid panel [AGGREGATE] *Lipid Profile CC PCP [facility] Work Phone: Start: 08-08-2016 End: 08-08-2016 PFM PFM [facility] Work Phone: Start: 02-01-2016 End: 02-01-2016 Follow Up Appt 6 months Follow Up Appt 6 months [facility] Work Phone: Start: 02-01-2016 End: 02-01-2016 PFM PFM [facility] Work Phone: Start: 02-01-2016 End: 02-01-2016 Follow Up Appt 6 months Follow Up Appt 6 months [facility] Work Phone: Start: 02-01-2016 End: 02-01-2016 PFM PFM [facility] Work Phone: Start: 11-14-2015 End: 10-30-2016 *Hepatic Function Panel *Hepatic Function Panel [facility] Work Phone: Start: 11-14-2015 End: 10-30-2016 Lipid 1996 panel *Lipid Profile CC PCP [facility] Work Phone: Start: 11-14-2015 End: 10-30-2016 *Hepatic Function Panel *Hepatic Function Panel [facility] [employer] Work Phone: Start: 11-14-2015 End: 10-30-2016 Lipid panel [AGGREGATE] *Lipid Profile CC PCP [facility] Work Phone: Start: 08-25-2015 Hepatitis B surface antibody level LDL CHOLESTEROL [facility] Start: 08-16-2015 PNEUMOVAX AGE 65 AND OVER WITH 5YR LOOKBACK (#1) PNEUMOVAX AGE 65 AND OVER WITH 5YR LOOKBACK (#1) [facility] Start: 08-03-2015 End: 08-03-2015 Ecg routine ecg w/least 12 lds w/i&r EKG (In office) [facility] Work Phone: Start: 08-03-2015 End: 08-03-2015 Follow Up Appt 6 months Follow Up Appt 6 months [facility] Work Phone: Start: 08-03-2015 End: 08-03-2015 Nuclear stress test -Lexiscan Nuclear stress test -Lexiscan [facility] Work Phone: Start: 08-03-2015 End: 08-03-2015 PFM PFM [facility] Work Phone: Start: 08-03-2015 End: 08-03-2015 Electrocardiogram, complete EKG (In office) [facility] Work Phone: Start: 08-03-2015 End: 08-03-2015 Follow Up Appt 6 months Follow Up Appt 6 months [facility] Work Phone: Start: 08-03-2015 End: 08-03-2015 Nuclear stress test -Lexiscan Nuclear stress test -Lexiscan [facility] Work Phone: Start: 08-03-2015 End: 08-03-2015 PFM PFM [facility] Work Phone: Start: 01-19-2015 End: 05-16-2015 *Hepatic Function Panel *Hepatic Function Panel [facility] Work Phone: Start: 01-19-2015 End: 01-19-2015 Follow Up Appt 6 months Follow Up Appt 6 months [facility] Work Phone: Start: 01-19-2015 End: 05-15-2015 Follow Up Appt Other Follow Up Appt Other [facility] Work Phone: Start: 01-19-2015 End: 05-15-2015 Lipid 1996 panel *Lipid Profile CC PCP [facility] Work Phone: Start: 01-19-2015 End: 01-19-2015 PFM PFM [facility] Work Phone: Start: 01-19-2015 End: 05-16-2015 *Hepatic Function Panel *Hepatic Function Panel [facility] Work Phone: Start: 01-19-2015 End: 01-19-2015 Follow Up Appt 6 months Follow Up Appt 6 months [facility] Work Phone: Start: 01-19-2015 End: 05-15-2015 Follow Up Appt Other Follow Up Appt Other [facility] Work Phone: Start: 01-19-2015 End: 05-15-2015 Lipid panel [AGGREGATE] *Lipid Profile CC PCP [facility] Work Phone: Start: 01-19-2015 End: 01-19-2015 PFM PFM [facility] Work Phone: Start: 11-24-2014 Hemoglobin A1c/Hemoglobin.total in Blood HBA1C [facility] Start: 10-20-2014 End: 11-02-2014 *BMP *BMP [facility] Work Phone: Start: 10-20-2014 End: 11-02-2014 *BMP *BMP [facility] Work Phone: Start: 09-28-2014 End: 10-06-2014 *Hepatic Function Panel *Hepatic Function Panel [facility] Work Phone: Start: 09-28-2014 End: 10-06-2014 *Hepatic Function Panel *Hepatic Function Panel [facility] Work Phone: Start: 09-07-2014 End: 10-06-2014 *BMP *BMP [facility] Work Phone: Start: 09-07-2014 End: 09-07-2014 Follow Up Appt Other Follow Up Appt Other [facility] Work Phone: Start: 09-07-2014 End: 09-07-2014 PFM PFM [facility] Work Phone: Start: 09-07-2014 End: 10-06-2014 *BMP *BMP [facility] Work Phone: Start: 09-07-2014 End: 09-07-2014 Follow Up Appt Other Follow Up Appt Other [facility] Work Phone: Start: 09-07-2014 End: 09-07-2014 PFM PFM [facility] Work Phone: Start: 08-12-2014 End: 08-17-2014 *Hepatic Function Panel *Hepatic Function Panel [facility] Work Phone: Start: 08-12-2014 End: 08-17-2014 Lipid 1996 panel *Lipid Profile CC PCP [facility] Work Phone: Start: 08-12-2014 End: 08-17-2014 *Hepatic Function Panel *Hepatic Function Panel [facility] Work Phone: Start: 08-12-2014 End: 08-17-2014 Lipid panel [AGGREGATE] *Lipid Profile CC PCP [facility] Work Phone: Start: 07-21-2014 End: 07-21-2014 Follow Up Appt 6 months Follow Up Appt 6 months [facility] Work Phone: Start: 07-21-2014 End: 07-21-2014 PFM PFM [facility] Work Phone: Start: 07-21-2014 End: 07-21-2014 Follow Up Appt 6 months Follow Up Appt 6 months [facility] Work Phone: Start: 07-21-2014 End: 07-21-2014 PFM PFM [facility] Work Phone: Start: 01-12-2014 End: 02-11-2014 *Hepatic Function Panel *Hepatic Function Panel [facility] Work Phone: Start: 01-12-2014 End: 02-11-2014 Lipid 1996 panel *Lipid Profile CC PCP [facility] Work Phone: Start: 01-12-2014 End: 02-11-2014 *Hepatic Function Panel *Hepatic Function Panel [facility] Work Phone: Start: 01-12-2014 End: 02-11-2014 Lipid panel [AGGREGATE] *Lipid Profile CC PCP [facility] Work Phone: Start: 01-05-2014 End: 01-05-2014 Follow Up Appt 6 months Follow Up Appt 6 months [facility] Work Phone: Start: 01-05-2014 End: 01-05-2014 PFM PFM [facility] Work Phone: Start: 01-05-2014 End: 01-05-2014 Follow Up Appt 6 months Follow Up Appt 6 months [facility] Work Phone: Start: 01-05-2014 End: 01-05-2014 PFM PFM [facility] Work Phone: Start: 07-13-2013 End: 08-09-2013 *Hepatic Function Panel *Hepatic Function Panel [facility] Work Phone: Start: 07-13-2013 End: 08-09-2013 Lipid 1996 panel *Lipid Profile CC PCP [facility] Work Phone: Start: 07-13-2013 End: 08-09-2013 *Hepatic Function Panel *Hepatic Function Panel [facility] Work Phone: Start: 07-13-2013 End: 08-09-2013 Lipid panel [AGGREGATE] *Lipid Profile CC PCP [facility] Work Phone: Start: 06-28-2013 End: 06-28-2013 Ecg routine ecg w/least 12 lds w/i&r EKG (In office) [facility] Work Phone: Start: 06-28-2013 End: 06-28-2013 Echocardiography Echocardiogram (complete) [facility] Work Phone: Start: 06-28-2013 End: 06-28-2013 Follow Up Appt 6 months Follow Up Appt 6 months [facility] Work Phone: Start: 06-28-2013 End: 06-28-2013 PFM PFM [facility] Work Phone: Start: 06-28-2013 End: 06-28-2013 Echocardiography Echocardiogram (complete) [facility] Work Phone: Start: 06-28-2013 End: 06-28-2013 Electrocardiogram, complete EKG (In office) [facility] Work Phone: Start: 06-28-2013 End: 06-28-2013 Follow Up Appt 6 months Follow Up Appt 6 months [facility] Work Phone: Start: 06-28-2013 End: 06-28-2013 PFM PFM [facility] Work Phone: Start: 12-13-2012 End: 01-27-2013 *Hepatic Function Panel *Hepatic Function Panel [facility] Work Phone: Start: 12-13-2012 End: 01-27-2013 Lipid 1996 panel *Lipid Profile [facility] Work Phone: Start: 12-13-2012 End: 01-27-2013 *Hepatic Function Panel *Hepatic Function Panel [facility] Work Phone: Start: 12-13-2012 End: 01-27-2013 Lipid panel [AGGREGATE] *Lipid Profile [facility] Work Phone: Start: 11-23-2012 End: 11-23-2012 Follow Up Appt 6 months Follow Up Appt 6 months [facility] Work Phone: Start: 11-23-2012 End: 02-11-2014 PFM PFM [facility] Work Phone: Start: 11-23-2012 End: 11-23-2012 Follow Up Appt 6 months Follow Up Appt 6 months [facility] Work Phone: Start: 11-23-2012 End: 02-11-2014 PFM PFM [facility] Work Phone: Start: 06-12-2012 End: 07-10-2012 *Hepatic Function Panel *Hepatic Function Panel [facility] Work Phone: Start: 06-12-2012 End: 07-10-2012 Lipid 1996 panel *Lipid Profile [facility] Work Phone: Start: 06-12-2012 End: 07-10-2012 *Hepatic Function Panel *Hepatic Function Panel [facility] Work Phone: Start: 06-12-2012 End: 07-10-2012 Lipid panel [AGGREGATE] *Lipid Profile [facility] Work Phone: Start: 05-04-2012 End: 05-04-2012 Ecg routine ecg w/least 12 lds w/i&r EKG (In office) [facility] Work Phone: Start: 05-04-2012 End: 02-11-2014 Follow Up Appt 6 months Follow Up Appt 6 months [facility] Work Phone: Start: 05-04-2012 End: 05-04-2012 Electrocardiogram, complete EKG (In office) [facility] Work Phone: Start: 05-04-2012 End: 02-11-2014 Follow Up Appt 6 months Follow Up Appt 6 months [facility] Work Phone: Start: 10-17-2011 End: 01-01-2012 *Hepatic Function Panel *Hepatic Function Panel [facility] Work Phone: Start: 10-17-2011 End: 02-11-2014 Follow Up Appt 6 months Follow Up Appt 6 months [facility] Work Phone: Start: 10-17-2011 End: 01-01-2012 Lipid 1996 panel *Lipid Profile [facility] Phone: Start: 10-17-2011 End: 01-01-2012 *Hepatic Function Panel *Hepatic Function Panel [facility] [employer] Work Phone: Start: 10-17-2011 End: 02-11-2014 Follow [...] 4 months Follow Up Appt 4 months [facility] Work Phone: Start: 06-13-2011 End: 06-13-2011 Echocardiography Echocardiogram (complete) [facility] Work Phone: Start: 06-13-2011 End: 06-13-2011 Electrocardiogram, complete EKG (In office) [facility] Work Phone: Start: 06-13-2011 End: 06-13-2011 Follow Up Appt 4 months Follow Up Appt 4 months [facility] Work Phone: Start: 03-14-2011 End: 03-14-2011 Follow Up Appt 3 months Follow Up Appt 3 months [facility] Work Phone: Start: 03-14-2011 End: 03-14-2011 Follow Up Appt 3 months Follow Up Appt 3 months [facility] Work Phone: Start: 2010 Hepatitis B Vaccine (1 of 3 - Risk 3-dose series) Hepatitis B Vaccine (1 of 3 - Risk 3-dose series) [facility] Start: 2000 SHINGRIX VACCINE (1 of 2) SHINGRIX VACCINE (1 of 2) [facility] Start: 08-16-1995 COLOGUARD (FIT-DNA) COLOGUARD (FIT-DNA) [facility] Start: 08-16-[address] COLONOGRAPHY [facility] Start: 08-16-1995 FECAL OCCULT BLOOD FECAL OCCULT BLOOD [facility] Start: 08-16-1995 SIGMOIDOSCOPY SIGMOIDOSCOPY [facility] Start: 1969 SHINGRIX VACCINE (1 of 2) SHINGRIX VACCINE (1 of 2) [facility] Start: 1969 Urine microalbumin profile [facility] Start: 1968 ANNUAL PCP TEAM CHRONIC DISEASE VISIT ANNUAL PCP TEAM CHRONIC DISEASE VISIT [facility] Start: 1968 HEPATITIS C SCREENING HEPATITIS C SCREENING [facility] Start: 1962 Adult depression screening assessment DEPRESSION SCREENING [facility] Start: 1960 Hepatitis B screening URINE ALBUMIN:CREATININE RATIO [facility] Start: 1960 Hepatitis C antibody, confirmatory test DILATED RETINAL EXAM [facility] Start: 1956 Pneumococcal Vaccine: 65+ (1 - PCV) Pneumococcal Vaccine: 65+ (1 - PCV) [facility] Start: 1956 PNEUMOCOCCAL: 65+ (1 - PCV) PNEUMOCOCCAL: 65+ (1 - PCV) [facility] Patient Education [facility] Work Phone: [facility] Immunizations Immunization Date Immunization Notes Care Provider Fa [facility] 01-03-2022 influenza virus vaccine, unspecified formulation Tania Walsh Work Phone: [facility] 01-12-2011 influenza virus vaccine, unspecified formulation Tania Walsh Work Phone: [facility] Work Phone: Payers Date Payer Category Payer Medicare [id number] 2019 Unknown MMO MMO MEDICARE SUPPLEMENT [id number] 2019-Present [phone] [address] [place] [address] Indemnity [id number] 2019 Unknown MMO MMO MEDICARE SUPPLEMENT [id number] 2019-Present [phone] [address] [place] [address] Indemnity [id number] 2015 Medicare MEDICARE MEDICAR E A AND B [id number] 2015-Present [phone] [place] [address] Medicare [id number] 2015 Medicare MEDICARE MEDICAR E A AND B [id number] 2015-Present [phone] [place] [address] Medicare [id number] 2015 Medicare [id number] Social History Date Type Detail Facility Start: 05-07-2018 Tobacco smoking stat us DEIS Never smoked tobacco [facility] Start: 04-26-2021 End: 08-18-2022 Alcohol intake Current drinker of alcohol (finding) [facility] Start: 1950 Sex Assigned At Not on file [facility] Start: 07-30-2021 End: 03-14-2022 Exposure to SARS-CoV-2 (event) Not sure [facility] Start: 05-07-2018 Tobacco use and exposure Smoke less tobacco non-user [facility] Start: 03-14-2022 End: 01-02-2023 Alcohol intake Ex-drinker (finding) [facility] Start: 09-26-2022 End: 01-02-2023 History of Social function [facility] Start: 09-26-2022 End: 01-02-2023 Tobacco use panel [facility] National Score (1-10 0), lower number is lower risk 55 [facility] Start: 01-02-2023 [facility] Clinical Notes 08-09-2021 to 04-03-2023 Tania Walsh - 01/02/2023 1:18 PM Sia Rowe RN - 01/02/2023 1:03 PM EDTMattwatson Walsh - 09/26/2022 1:16 PM EDTTmurphy Roldan MA - 09/26/2022 12:53 PM EDTPatient Instructions Note Date & Type Note Facility 04-03-2023 Note HNO ID: [id number] Author: Tania Walsh Service: ? Author Type: [...] RTC in 3-4 months. Tania Walsh DPM [facility] 04-03-2023 Note HNO ID: [id number] Author: Sia Kat RN Service: ? Author Type: Registered Nurse Type: Progress Notes Filed: 04/03/2023 10:44 PM Note Text: Patient presents with: Left Foot - Established Patient, Follow Up, Diabetic Foot Care Right Foot - Established Patient, Follow Up, Diabetic Foot Care Patient presents for diabetic foot care. TATIANA 01/02/23 [facility] 01-02-2023 Note HNO ID: [id number] Author: Tania Walsh Service: ? Author Type: [...] Objective: Patient presents to clinic ambulating in [facility] Vasc: DP and PT pulses are faintly [...] RTC in 3-4 months. Tania Walsh DPM [facility] 01-02-2023 Note HNO ID: [id number] Author: Sia Kat RN Service: ? Author [...] at this time. Small area of redness. [facility] 01-02-2023 History of Presen t illness Narrative [...] Objective: Patient presents to clinic ambulating in [facility] Vasc: DP and PT pulses are faintly [...] area of redness. documented in this encounter [facility] 09-26-2022 Note HNO ID: [id number] Author: Tania Fuenteskristin Service: ? Author Type: [...] Objective: Patient presents to clinic ambulating in [facility] Vasc: DP and PT pulses are palpable [...] RTC in 3-4 months. Tania Walsh DPM [facility] 09-26-2022 Note HNO ID: [id number] Author: Vivi Roldan MA Service: ? Author Type: Silver Cleaner Type: Progress Notes Filed: 09/26/2022 1:27 PM Note Text: Patient presents here today for 3 month nail care. Patient denies any sort of pain today. [facility] 09-26-2022 History of Presen t illness Narrative [...] [facility] and PT pulses [...] of pain today. documented in this encounter [facility] 06-20-2022 Note HNO ID: [id number] Author: Tania Walsh Service: ? Author Type: [...] RTC in 3-4 months. Tania Walsh DPM [facility] 06-20-2022 Note HNO ID: [id number] Author: Anna Lopez LPN Service: ? Author Type: LICENSED NURSE Type: Progress Notes Filed: 06/20/2022 1:20 PM Note Text: AMB ROOMING INTAKE FLOWSHEET DATA Patient presents with: Left Foot - Established Patient, Follow Up, Diabetic Foot Care Right Foot - Established Patient, Follow Up, Diabetic Foot Care Anna Lopez LPN [facility] 06-20-2022 Instructions Tania Walsh - 06/20/2022 1:07 [...] (or decreased sensation in your feet) a perishable fruit inspector should always cut your toenails. Be Careful [...] Go to your health care provider or perishable fruit inspector to treat these conditions. documented in this encounter [facility] 06-20-2022 History of Presen t illness Narrative [...] Anna Lopez LPN documented in this encounter [facility] 03-14-2022 Instructions Tania Walsh - 03/14/2022 1:08 [...] (or decreased sensation in your feet) a perishable fruit inspector should always cut your toenails. Be Careful [...] Go to your health care provider or perishable fruit inspector to treat these conditions. documented in this encounter [facility] 03-14-2022 History of Presen t illness Narrative [...] Objective: [facility]: DP pulses are faintly [...] Up, nail care documented in this encounter [facility] 11-29-2021 History of Presen t illness Narrative [...] Anna Lopez LPN documented in this encounter [facility] 11-29-2021 Instructions Tania Villanuevanilda - 11/29/2021 11:56 [...] (or decreased sensation in your feet) a perishable fruit inspector should always cut your toenails. Be Careful [...] Go to your health care provider or perishable fruit inspector to treat these conditions. documented in this encounter [facility] 08-09-2021 History of Presen t illness Narrative [...] Patient, Nail Check documented in this encounter [facility] 08-09-2021 Instructions Tania Walsh - 08/09/2021 1:39 [...] (or decreased sensation in your feet) a perishable fruit inspector should always cut your toenails. Be Careful [...] Go to your health care provider or perishable fruit inspector to treat these conditions. documented in this encounter [facility] Diagnosis Onychomycosis- Primary Dermatophytosis of nail Pain in toe of left foot Pain in limb Pain in toe of right foot Pain in limb Diabetic polyneuropathy associated with type 2 diabetes mellitus (HCC) Hyperkeratosis Acquired keratoderma [facility] Diagnosis Onychomycosis- Primary Dermatophytosis of nail Pain in toe of left foot Pain in limb Pain in toe of right foot Pain in limb Diabetic polyneuropathy associated with type 2 diabetes mellitus (HCC) Ingrowing toenail of right foot Ingrowing nail documented [facility] Diagnosis Onychomycosis- Primary Dermatophytosis of nail Pain in toe of left foot Pain in limb Pain in toe of right foot Pain in limb Diabetic polyneuropathy associated with type 2 diabetes mellitus (HCC) Ingrowing toenail of right foot Ingrowing nail documented [facility] Diagnosis Onychomycosis- Primary Dermatophytosis of nail Pain in toe of left foot Pain in limb Pain in toe of right foot Pain in limb Diabetic polyneuropathy associated with type 2 diabetes mellitus (HCC) Ingrowing toenail of right foot Ingrowing nail documented [facility] Diagnosis Onychomycosis- Primary Dermatophytosis of nail Pain in toe of left foot Pain in limb Pain in toe of right foot Pain in limb Diabetic polyneuropathy associated with type 2 diabetes mellitus (HCC) Ingrowing toenail of right foot Ingrowing nail documented in this encounter [facility] Summary Purpose Family History No Family History [...] or prosecute any alcohol or drug abuse patient.[facility] [place] the event this information is protected by the Federal Confidentiality of Alcohol and Drug Abuse Patient Records regulations: The Federal rules restrict any use of the information to criminally investigate or prosecute any alcohol or drug abuse patient.[facility] [place] [place] event this information is protected by the Federal Confidentiality of Alcohol and Drug Abuse Patient Records regulations: The Federal rules restrict any use of the information to criminally investigate or prosecute any alcohol or drug abuse patient.[facility] [place] [place] event this information is protected by the Federal Confidentiality of Alcohol and Drug Abuse Patient Records regulations: The Federal rules restrict any use of the information to criminally investigate or prosecute any alcohol or drug abuse patient.[facility] [place] [place] event this information is protected by the Federal Confidentiality of Alcohol and Drug Abuse Patient Records regulations: The Federal rules restrict any use of the information to criminally investigate or prosecute any alcohol or drug abuse patient.[facility] [place] [place] event this information is protected by the Federal Confidentiality of Alcohol and Drug Abuse Patient Records regulations: The Federal rules restrict any use of the information to criminally investigate or prosecute any alcohol or drug abuse patient.[facility] Reason for Visit (unrecogniz ed section and content) Reason Comments Established Patient Follow Up Diabetic Foot Care Reason Comments Established Patient Follow Up nail care Reason Comments Follow Up nail care Reason Comments Established Patient Follow Up Diabetic Foot Care Ulcer Care Teams (unrecognized sec tion and content) Government Affairs Manager Relationship Specialty Start Date End Date Daria Tovar [address] [place] [address] PCP - General Family Practice 10/23/17 Government Affairs Manager Relationship Specialty Start Date End Date Daria Tovar [address] [place], [place] [id number] PCP - General Family Medicine 10/23/17 Government Affairs Manager Relationship Specialty Start Date End Date Daria TovarDO [address] [place] [address] PCP - General Family Medicine 10/23/17 Government Affairs Manager Relationship Specialty Start Date End Date LaDaria PrafulDO [address] [place] [address] PCP - General Family Medicine 10/23/17 Government Affairs Manager Relationship Specialty Start Date End Date Daria Tovar DO [address] [place] [address] PCP - General Family Medicine 10/23/17 (unrecognized [...] BE BASED ON THE PRIMARY CLINICAL RECORDS. [facility]. provides no warranty or guarantee of the accuracy or completeness of information in this document.
[2023-05-26 13:00] LABS: Erythrocyte Sedimentation Rate 16 mm/hr (0-20)
[2023-05-26 14:05] LABS: CRP 2.93 mg/L (0.0-3.0)
== END | disposition home or self-care (01) ==
LOC: BFHLAB 10:07
PROVIDERS: PCP Family Medicine; Visit Provider Family Medicine
DX: M25.519 Pain in unspecified shoulder (principal)
CPT/HCPCS: 36415; 85652; 86140

== ENCOUNTER → 2023-05-29 | Outpatient (CLI) | payer MEDICARE, OTHER, SELFPAY ==
--- NOTE | 2023-05-29 10:52 | RAD_ITS ---
STUDY: X-RAY - LEFT SHOULDER REASON FOR EXAM: Male, 72 years old. Pain. TECHNIQUE: 4 views of the left shoulder. COMPARISON: None. FINDINGS: There is mild glenohumeral arthrosis. There is hypertrophic acromioclavicular arthrosis. Normal acromion. There are small foci of calcification superior to the greater tuberosity of the humeral head, concerning for calcific tendinitis of the rotator cuff. Normal humeral head and visualized proximal humerus. The soft tissue structures are unremarkable. There is no demonstrated fracture. Normal visualized pulmonary apex. 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 Suspected calcific tendinitis of the rotator cuff. Electronically Signed: Taiwo Hanson MD at 9:30 EST ,
--- NOTE | 2023-05-29 10:53 | RAD_ITS ---
STUDY: X-RAY - RIGHT SHOULDER REASON FOR EXAM: Male, 72 years old. Pain. TECHNIQUE: 4 views of the right shoulder. COMPARISON: None. FINDINGS: There is mild glenohumeral arthrosis. There is hypertrophic acromioclavicular arthrosis. Normal acromion. Intact humeral head and visualized proximal humerus. The soft tissue structures are unremarkable. There is no demonstrated fracture. Normal visualized pulmonary apex. 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 Electronically Signed: Taiwo Hanson MD at 9:28 EST ,
--- OUTSIDE RECORDS SUMMARY | 2023-05-29 12:32 | XMS RPT_ITS | CCD ---
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, Aamir Hatfield Unavailable CHRISTIANO Galvan, Cherrie Maldonado [...] 5-325 MG TABS As needed OXYCODONE-ACETAMINO PHEN [phone] Jaspreet Rubalcava MD Problems Active Problems Problem [...] (2 sources) Long-term drug therapy; Translations: [Other fdc (current) drug therapy] Onset: 06-29-2010 06-29-2010 Past [...] 06-29-2010 Episodic Other aftercare (4 sources) Other fdc (current) drug therapy; Translations: [Other polyethylene combiner (current) drug therapy] Onset: 06-29-2010 06-29-2010 Episodic [...] Start: 04-03-2023 End: 04-03-2023 ambulatory TANIA WALSH Facility:[facility] Start: 01-02-2023 End: 01-02-2023 ambulatory TANIA WALSH Facility:[facility] Start: 01-02-2023 End: 01-02-2023 Patient encounter [...] Rubalcava MD Start: 01-19-2015 End: 01-19-2015 PFM Jasperet Rubalcava MD Start: 01-19-2015 End: 05-16-2015 *Hepatic [...] comp foot exam completed DIABETIC FOOT EXAM [facility] Start: 12-13-2022 Influenza vaccination Influenza Vaccine (#1) [facility] Start: 04-26-2022 3 comp foot exam completed DIABETIC FOOT EXAM [facility] Start: 04-14-2022 ADVANCE DIRECTIVE DISCUSSION ADVANCE DIRECTIVE DISCUSSION [facility] Start: 04-14-2022 DEPRESSION ASSESSMENT DEPRESSION ASSESSMENT [facility] Start: 12-13-2021 Influenza vaccination [facility] Start: 05-11-2021 COVID-19 VACCINE (4 - Booster for Pfizer series) COVID-19 VACCINE (4 - Booster for Pfizer series) [facility] Start: 05-03-2021 COVID-19 VACCINE (4 - Booster for Pfizer series) COVID-19 VACCINE (4 - Booster for Pfizer series) [facility] Start: 04-14-2021 ADVANCE DIRECTIVE DISCUSSION ADVANCE DIRECTIVE DISCUSSION [facility] Start: 04-14-2021 DEPRESSION ASSESSMENT DEPRESSION ASSESSMENT [facility] Start: 04-05-2021 COVID-19 VACCINE (4 - Booster for Pfizer series) COVID-19 VACCINE (4 - Booster for Pfizer series) [facility] Start: 04-05-2021 Covid-19 Vaccine (4 - Pfizer risk series) Covid-19 Vaccine (4 - Pfizer risk series) [facility] Start: 10-05-2018 Colonoscopy COLONOSCOPY [facility] Start: 10-05-2018 COLORECTAL CANCER SCREENING COLORECTAL CANCER SCREENING [facility] Start: 10-30-2017 Hepatitis B surface antibody level LDL CHOLESTEROL [facility] Start: 10-02-2017 End: 10-02-2017 Appointment Appointment [facility] Work Phone: Start: 08-08-2017 Hepatitis B surface antibody level LDL Cholesterol [facility] Start: 04-21-2017 End: 10-30-2016 *Hepatic Function Panel *Hepatic Function Panel [facility] Work Phone: Start: 04-21-2017 End: 10-30-2016 Lipid 1996 panel *Lipid Profile CC PCP [facility] Work Phone: Start: 04-21-2017 End: 10-30-2016 *Hepatic Function Panel *Hepatic Function Panel [facility] Work Phone: Start: 04-21-2017 End: 10-30-2016 Lipid 1996 panel *Lipid Profile CC PCP [facility] Work Phone: Start: 01-30-2017 End: 01-30-2017 Appointment Appointment [facility] Work Phone: Start: 01-30-2017 End: 01-30-2017 Appointment Appointment [facility] Work Phone: Start: 01-30-2017 End: 01-30-2017 Follow Up Appt 6 months Follow Up Appt 6 months [facility] Work Phone: Start: 01-30-2017 End: 01-30-2017 PFM PFM [facility] Work Phone: Start: 08-08-2016 End: 10-30-2016 *Hepatic Function Panel *Hepatic Function Panel [facility] Work Phone: Start: 08-08-2016 End: 08-08-2016 Follow Up Appt 6 months Follow Up Appt 6 months [facility] Work Phone: Start: 08-08-2016 End: 10-18-2016 Lipid 1996 panel *Lipid Profile CC PCP [facility] Work Phone: Start: 08-08-2016 End: 08-08-2016 PFM PFM [facility] Work Phone: Start: 08-08-2016 End: 10-30-2016 *Hepatic Function Panel *Hepatic Function Panel [facility] Work Phone: Start: 08-08-2016 End: 08-08-2016 Follow Up Appt 6 months Follow Up Appt 6 months [facility] Work Phone: Start: 08-08-2016 End: 10-18-2016 Lipid panel [AGGREGATE] *Lipid Profile CC PCP [facility] Work Phone: Start: 08-08-2016 End: 08-08-2016 PFM PFM [facility] Work Phone: Start: 02-01-2016 End: 02-01-2016 Follow Up Appt 6 months Follow Up Appt 6 months [facility] Work Phone: Start: 02-01-2016 End: 02-01-2016 PFM PFM [facility] Work Phone: Start: 02-01-2016 End: 02-01-2016 Follow Up Appt 6 months Follow Up Appt 6 months [facility] Work Phone: Start: 02-01-2016 End: 02-01-2016 PFM PFM [facility] Work Phone: Start: 11-14-2015 End: 10-30-2016 *Hepatic Function Panel *Hepatic Function Panel [facility] Work Phone: Start: 11-14-2015 End: 10-30-2016 Lipid 1996 panel *Lipid Profile CC PCP [facility] Work Phone: Start: 11-14-2015 End: 10-30-2016 *Hepatic Function Panel *Hepatic Function Panel [facility] Work Phone: Start: 11-14-2015 End: 10-30-2016 Lipid panel [AGGREGATE] *Lipid Profile CC PCP [facility] Work Phone: Start: 08-25-2015 Hepatitis B surface antibody level LDL CHOLESTEROL [facility] Start: 08-16-2015 PNEUMOVAX AGE 65 AND OVER WITH 5YR LOOKBACK (#1) PNEUMOVAX AGE 65 AND OVER WITH 5YR LOOKBACK (#1) [facility] Start: 08-03-2015 End: 08-03-2015 Ecg routine ecg w/least 12 lds w/i&r EKG (In office) [facility] Work Phone: Start: 08-03-2015 End: 08-03-2015 Follow Up Appt 6 months Follow Up Appt 6 months [facility] Work Phone: Start: 08-03-2015 End: 08-03-2015 Nuclear stress test -Lexiscan Nuclear stress test -Lexiscan [facility] Work Phone: Start: 08-03-2015 End: 08-03-2015 PFM PFM [facility] Work Phone: Start: 08-03-2015 End: 08-03-2015 Electrocardiogram, complete EKG (In office) [facility] Work Phone: Start: 08-03-2015 End: 08-03-2015 Follow Up Appt 6 months Follow Up Appt 6 months [facility] Work Phone: Start: 08-03-2015 End: 08-03-2015 Nuclear stress test -Lexiscan Nuclear stress test -Lexiscan [facility] Work Phone: Start: 08-03-2015 End: 08-03-2015 PFM PFM [facility] Work Phone: Start: 01-19-2015 End: 05-16-2015 *Hepatic Function Panel *Hepatic Function Panel [facility] Work Phone: Start: 01-19-2015 End: 01-19-2015 Follow Up Appt 6 months Follow Up Appt 6 months [facility] Work Phone: Start: 01-19-2015 End: 05-15-2015 Follow Up Appt Other Follow Up Appt Other [facility] Work Phone: Start: 01-19-2015 End: 05-15-2015 Lipid 1996 panel *Lipid Profile CC PCP [facility] Work Phone: Start: 01-19-2015 End: 01-19-2015 PFM PFM [facility] Work Phone: Start: 01-19-2015 End: 05-16-2015 *Hepatic Function Panel *Hepatic Function Panel [facility] Work Phone: Start: 01-19-2015 End: 01-19-2015 Follow Up Appt 6 months Follow Up Appt 6 months [facility] Work Phone: Start: 01-19-2015 End: 05-15-2015 Follow Up Appt Other Follow Up Appt Other [facility] Work Phone: Start: 01-19-2015 End: 05-15-2015 Lipid panel [AGGREGATE] *Lipid Profile CC PCP [facility] Work Phone: Start: 01-19-2015 End: 01-19-2015 PFM PFM [facility] Work Phone: Start: 11-24-2014 Hemoglobin A1c/Hemoglobin.total in Blood HBA1C [facility] Start: 10-20-2014 End: 11-02-2014 *BMP *BMP [facility] Work Phone: Start: 10-20-2014 End: 11-02-2014 *BMP *BMP [facility] Work Phone: Start: 09-28-2014 End: 10-06-2014 *Hepatic Function Panel *Hepatic Function Panel [facility] Work Phone: Start: 09-28-2014 End: 10-06-2014 *Hepatic Function Panel *Hepatic Function Panel [facility] Work Phone: Start: 09-07-2014 End: 10-06-2014 *BMP *BMP [facility] Work Phone: Start: 09-07-2014 End: 09-07-2014 Follow Up Appt Other Follow Up Appt Other [facility] Work Phone: Start: 09-07-2014 End: 09-07-2014 PFM PFM [facility] Work Phone: Start: 09-07-2014 End: 10-06-2014 *BMP *BMP [facility] Work Phone: Start: 09-07-2014 End: 09-07-2014 Follow Up Appt Other Follow Up Appt Other [facility] Work Phone: Start: 09-07-2014 End: 09-07-2014 PFM PFM [facility] Work Phone: Start: 08-12-2014 End: 08-17-2014 *Hepatic Function Panel *Hepatic Function Panel [facility] Work Phone: Start: 08-12-2014 End: 08-17-2014 Lipid 1996 panel *Lipid Profile CC PCP [facility] Work Phone: Start: 08-12-2014 End: 08-17-2014 *Hepatic Function Panel *Hepatic Function Panel [facility] Work Phone: Start: 08-12-2014 End: 08-17-2014 Lipid panel [AGGREGATE] *Lipid Profile CC PCP [facility] Work Phone: Start: 07-21-2014 End: 07-21-2014 Follow Up Appt 6 months Follow Up Appt 6 months [facility] Work Phone: Start: 07-21-2014 End: 07-21-2014 PFM PFM [facility] Work Phone: Start: 07-21-2014 End: 07-21-2014 Follow Up Appt 6 months Follow Up Appt 6 months [facility] Work Phone: Start: 07-21-2014 End: 07-21-2014 PFM PFM [facility] Work Phone: Start: 01-12-2014 End: 02-11-2014 *Hepatic Function Panel *Hepatic Function Panel [facility] Work Phone: Start: 01-12-2014 End: 02-11-2014 Lipid 1996 panel *Lipid Profile CC PCP [facility] Work Phone: Start: 01-12-2014 End: 02-11-2014 *Hepatic Function Panel *Hepatic Function Panel [facility] Work Phone: Start: 01-12-2014 End: 02-11-2014 Lipid panel [AGGREGATE] *Lipid Profile CC PCP [facility] Work Phone: Start: 01-05-2014 End: [...] 08-09-2013 *Hepatic Function Panel *Hepatic Function Panel [facility] Work Phone: Start: 07-13-2013 End: 08-09-2013 Lipid 1996 panel *Lipid Profile CC PCP [facility] Work Phone: Start: 07-13-2013 End: 08-09-2013 *Hepatic Function Panel *Hepatic Function Panel [facility] Work Phone: Start: 07-13-2013 End: 08-09-2013 Lipid panel [AGGREGATE] *Lipid Profile CC PCP [facility] Work Phone: Start: 06-28-2013 End: 06-28-2013 Ecg routine ecg w/least 12 lds w/i&r EKG (In office) [facility] Work Phone: Start: 06-28-2013 End: 06-28-2013 Echocardiography Echocardiogram (complete) [facility] Work Phone: Start: 06-28-2013 End: 06-28-2013 Follow Up Appt 6 months Follow Up Appt 6 months [facility] Work Phone: Start: 06-28-2013 [...] Phone: Start: 06-28-2013 End: 06-28-2013 PFM PFM [facility] Work Phone: Start: 12-13-2012 End: 01-27-2013 *Hepatic Function Panel *Hepatic Function Panel [facility] Work Phone: Start: 12-13-2012 End: 01-27-2013 Lipid 1996 panel *Lipid Profile [facility] Work Phone: Start: 12-13-2012 End: 01-27-2013 *Hepatic Function Panel *Hepatic Function Panel [facility] Work Phone: Start: 12-13-2012 End: 01-27-2013 Lipid panel [AGGREGATE] *Lipid Profile [facility] Work Phone: Start: 11-23-2012 End: 11-23-2012 Follow Up Appt 6 months Follow Up Appt 6 months [facility] Work Phone: Start: 11-23-2012 End: 02-11-2014 PFM PFM [facility] Work Phone: Start: 11-23-2012 End: 11-23-2012 Follow Up Appt 6 months Follow Up Appt 6 months [facility] Work Phone: Start: 11-23-2012 End: 02-11-2014 PFM PFM [facility] Work Phone: Start: 06-12-2012 End: 07-10-2012 *Hepatic Function Panel *Hepatic Function Panel [facility] Work Phone: Start: 06-12-2012 End: 07-10-2012 Lipid 1996 panel *Lipid Profile [facility] Work Phone: Start: 06-12-2012 End: 07-10-2012 *Hepatic Function Panel *Hepatic Function Panel [facility] Work Phone: Start: 06-12-2012 End: 07-10-2012 Lipid panel [AGGREGATE] *Lipid Profile [facility] Work Phone: Start: 05-04-2012 End: 05-04-2012 Ecg routine ecg w/least 12 lds w/i&r EKG (In office) [facility] Work Phone: Start: 05-04-2012 End: [...] Lipid 1996 panel *Lipid Profile [facility] [employer] Phone: Start: 10-17-2011 End: 01-01-2012 *Hepatic Function Panel *Hepatic Function Panel [facility] Work Phone: Start: 10-17-2011 End: 02-11-2014 Follow [...] 4 months Follow Up Appt 4 months [facility] Work Phone: Start: 06-13-2011 [...] 3 months Follow Up Appt 3 months [facility] Work Phone: Start: 2010 Hepatitis B Vaccine (1 of 3 - Risk 3-dose series) Hepatitis B Vaccine (1 of 3 - Risk 3-dose series) [facility] Start: 2000 SHINGRIX VACCINE (1 of 2) SHINGRIX VACCINE (1 of 2) [facility] Start: 08-16-1995 COLOGUARD (FIT-DNA) COLOGUARD (FIT-DNA) [facility] Start: 08-16-[address] COLONOGRAPHY [facility] Start: 08-16-1995 FECAL OCCULT BLOOD FECAL OCCULT BLOOD [facility] Start: 08-16-1995 SIGMOIDOSCOPY SIGMOIDOSCOPY [facility] Start: 1969 SHINGRIX VACCINE (1 of 2) SHINGRIX VACCINE (1 of 2) [facility] Start: 1969 Urine microalbumin profile [facility] Start: 1968 ANNUAL PCP TEAM CHRONIC DISEASE VISIT ANNUAL PCP TEAM CHRONIC DISEASE VISIT [facility] Start: 1968 HEPATITIS C SCREENING HEPATITIS C SCREENING [facility] Start: 1962 Adult depression screening assessment DEPRESSION SCREENING [facility] Start: 1960 Hepatitis B screening URINE ALBUMIN:CREATININE RATIO [facility] Start: 1960 Hepatitis C antibody, confirmatory test DILATED RETINAL EXAM [facility] Start: 1956 Pneumococcal Vaccine: 65+ (1 - PCV) Pneumococcal Vaccine: 65+ (1 - PCV) [facility] Start: 1956 PNEUMOCOCCAL: 65+ (1 - PCV) PNEUMOCOCCAL: 65+ (1 - PCV) [facility] Patient Education [facility] Work Phone: [facility] Immunizations Immunization Date Immunization Notes Care Provider Fa [facility] 01-03-2022 influenza virus vaccine, unspecified formulation Tania Walsh Work Phone: [facility] 01-12-2011 influenza virus vaccine, unspecified formulation Tania Walsh Work Phone: [facility] Work Phone: Payers Date Payer Category Payer Medicare [id number] 2019 Unknown MMO MMO MEDICARE SUPPLEMENT [id number] 2019-Present [phone] [address] [place] [address] Indemnity [id number] 2019 Unknown MMO MMO MEDICARE SUPPLEMENT [id number] 2019-Present [phone] [address] [place] [address] Indemnity [id number] 2015 Medicare MEDICARE MEDICAR E A AND B [id number] 2015-Present [phone] [place] [address] Medicare [id number] 2015 Medicare MEDICARE MEDICAR E A AND B [id number] 2015-Present [phone] [place] [address] Medicare [id number] 2015 Medicare [id number] Social History Date Type Detail Facility Start: 05-07-2018 Tobacco smoking stat us [facility] Never smoked tobacco [facility] Start: 04-26-2021 End: 08-18-2022 Alcohol intake Current drinker of alcohol (finding) [facility] Start: 1950 Sex Assigned At Not on file [facility] Start: 07-30-2021 End: 03-14-2022 Exposure to SARS-CoV-2 (event) Not sure [facility] Start: 05-07-2018 Tobacco use and exposure Smoke less tobacco non-user [facility] Start: 03-14-2022 End: 01-02-2023 Alcohol intake Ex-drinker (finding) [facility] Start: 09-26-2022 End: 01-02-2023 History of Social function [facility] Start: 09-26-2022 End: 01-02-2023 Tobacco use panel [facility] National Score (1-10 0), lower number is lower risk 55 [facility] Start: 01-02-2023 [facility] Clinical Notes 08-09-2021 to 04-03-2023 Tania Walsh - 01/02/2023 1:18 PM Sia Rowe RN - 01/02/2023 1:03 PM EDTMattwatson Walsh - 09/26/2022 1:16 PM EDTTmurphy Roldan MA - 09/26/2022 12:53 PM EDTPatient Instructions Note Date & Type Note Facility 04-03-2023 Note HNO ID: [id number] Author: Tania Walsh Service: ? Author Type: [...] Walsh DPM [facility] 04-03-2023 Note HNO ID: [id number] Author: Sia Kat RN Service: ? Author Type: Registered Nurse Type: Progress Notes Filed: 04/03/2023 10:44 PM Note Text: Patient presents with: Left Foot - Established Patient, Follow Up, Diabetic Foot Care Right Foot - Established Patient, Follow Up, Diabetic Foot Care Patient presents for diabetic foot care. TATIANA 01/02/23 [facility] 01-02-2023 Note HNO ID: [id number] Author: Tania Walsh Service: ? Author Type: [...] Objective: Patient presents to clinic ambulating in [facility] Vasc: DP and PT pulses [...] Walsh DPM [facility] 01-02-2023 Note HNO ID: [id number] Author: Sia Kat RN Service: ? Author [...] of redness. [facility] 01-02-2023 History of Presen t illness [...] Objective: Patient presents to clinic ambulating in [facility] Vasc: DP and PT pulses [...] area of redness. documented in this encounter [facility] 09-26-2022 Note HNO ID: [id number] Author: Tania Fuenteskristin Service: ? Author Type: [...] Objective: Patient presents to clinic ambulating in [facility] Vasc: DP and PT pulses [...] Walsh DPM [facility] 09-26-2022 Note HNO ID: [id number] Author: Vivi Roldan MA Service: ? Author Type: Flume Maker Type: Progress Notes Filed: 09/26/2022 1:27 PM Note Text: Patient presents here today for 3 month nail care. Patient denies any sort of pain today. [facility] 09-26-2022 History of Presen t illness [...] [facility]: DP and PT pulses [...] of pain today. documented in this encounter [facility] 06-20-2022 Note HNO ID: [id number] Author: Tania Walsh Service: ? Author Type: [...] Walsh DPM [facility] 06-20-2022 Note HNO ID: [id number] Author: Anna Lopez LPN Service: ? Author Type: LICENSED NURSE Type: Progress Notes Filed: 06/20/2022 1:20 PM Note Text: AMB ROOMING INTAKE FLOWSHEET DATA Patient presents with: Left Foot - Established Patient, Follow Up, Diabetic Foot Care Right Foot - Established Patient, Follow Up, Diabetic Foot Care Anna Lopez LPN [facility] 06-20-2022 Instructions Tania Walsh - 06/20/2022 [...] (or decreased sensation in your feet) a wafer machine operator should always cut your toenails. Be Careful [...] Go to your health care provider or wafer machine operator to treat these conditions. documented in this encounter [facility] 06-20-2022 History of Presen t illness Narrative [...] Anna Lopez LPN documented in this encounter [facility] 03-14-2022 Instructions Tania Walsh - 03/14/2022 1:08 [...] (or decreased sensation in your feet) a wafer machine operator should always cut your toenails. Be Careful [...] Go to your health care provider or wafer machine operator to treat these conditions. documented in this encounter [facility] 03-14-2022 History of Presen t illness Narrative [...] Objective: [facility] Vasc: DP pulses are faintly bilateral. Posterior [...] Up, nail care documented in this encounter [facility] 11-29-2021 History of Presen t illness Narrative [...] Anna Lopez LPN documented in this encounter [facility] 11-29-2021 Instructions Tania Villanuevanilda - 11/29/2021 11:56 [...] (or decreased sensation in your feet) a wafer machine operator should always cut your toenails. Be Careful [...] Go to your health care provider or wafer machine operator to treat these conditions. documented in this encounter [facility] 08-09-2021 History of Presen t illness Narrative [...] Patient, Nail Check documented in this encounter [facility] 08-09-2021 Instructions Tania Walsh - 08/09/2021 1:39 [...] (or decreased sensation in your feet) a wafer machine operator should always cut your toenails. Be Careful [...] Go to your health care provider or wafer machine operator to treat these conditions. documented in this encounter [facility] Diagnosis Onychomycosis- Primary Dermatophytosis of nail Pain in toe of left foot Pain in limb Pain in toe of right foot Pain in limb Diabetic polyneuropathy associated with type 2 diabetes mellitus (HCC) Hyperkeratosis Acquired keratoderma [facility] Diagnosis Onychomycosis- Primary Dermatophytosis of nail Pain in toe of left foot Pain in limb Pain in toe of right foot Pain in limb Diabetic polyneuropathy associated with type 2 diabetes mellitus (HCC) Ingrowing toenail of right foot Ingrowing nail [facility] Diagnosis Onychomycosis- Primary Dermatophytosis of nail Pain in toe of left foot Pain in limb Pain in toe of right foot Pain in limb Diabetic polyneuropathy associated with type 2 diabetes mellitus (HCC) Ingrowing toenail of right foot Ingrowing nail [facility] Diagnosis Onychomycosis- Primary Dermatophytosis of nail Pain in toe of left foot Pain in limb Pain in toe of right foot Pain in limb Diabetic polyneuropathy associated with type 2 diabetes mellitus (HCC) Ingrowing toenail of right foot Ingrowing nail [facility] Diagnosis Onychomycosis- Primary Dermatophytosis of nail Pain in toe of left foot Pain in limb Pain in toe of right foot Pain in limb Diabetic polyneuropathy associated with type 2 diabetes mellitus (HCC) Ingrowing toenail of right foot Ingrowing nail documented in this encounter [facility] Summary Purpose Family History No Family History [...] or prosecute any alcohol or drug abuse patient.[facility] the event this information is protected by the Federal Confidentiality of Alcohol and Drug Abuse Patient Records regulations: The Federal rules restrict any use of the information to criminally investigate or prosecute any alcohol or drug abuse patient.[facility] the event this information is protected by the Federal Confidentiality of Alcohol and Drug Abuse Patient Records regulations: The Federal rules restrict any use of the information to criminally investigate or prosecute any alcohol or drug abuse patient.[facility] the event this information is protected by the Federal Confidentiality of Alcohol and Drug Abuse Patient Records regulations: The Federal rules restrict any use of the information to criminally investigate or prosecute any alcohol or drug abuse patient.[facility] the event this information is protected by the Federal Confidentiality of Alcohol and Drug Abuse Patient Records regulations: The Federal rules restrict any use of the information to criminally investigate or prosecute any alcohol or drug abuse patient.[facility] the event this information is protected by the Federal Confidentiality of Alcohol and Drug Abuse Patient Records regulations: The Federal rules restrict any use of the information to criminally investigate or prosecute any alcohol or drug abuse patient.[facility] Reason for Visit (unrecogniz ed section and content) Reason Comments Established Patient Follow Up Diabetic Foot Care Reason Comments Established Patient Follow Up nail care Reason Comments Follow Up nail care Reason Comments Established Patient Follow Up Diabetic Foot Care Ulcer Care Teams (unrecognized sec tion and content) [facility] Department Manager Relationship Specialty Start Date End Date Daria Tovar [address] [place] [address] PCP - General Family Practice 10/23/17 [employer] Department Manager Relationship Specialty Start Date End Date Daria Tovar [address] [place], [place] [id number] PCP - General Family Medicine 10/23/17 [employer] Department Manager Relationship Specialty Start Date End Date Daria TovarDO [address] [place] [id number] PCP - General Family Medicine 10/23/17 Mutuel Department Manager Relationship Specialty Start Date End Date LaDaria PrafulDO [address] [place] [address] PCP - General Family Medicine 10/23/17 Mutuel Department Manager Relationship Specialty Start Date End Date Daria Tovar DO [address] [place] [address] PCP - General Family Medicine 10/23/17 (unrecognized [...] BE BASED ON THE PRIMARY CLINICAL RECORDS. [email or web address] [facility]. provides no warranty or guarantee of the accuracy or completeness of information in this document.
== END | disposition home or self-care (01) ==
LOC: MTRAD 10:51
PROVIDERS: PCP Family Medicine; Referring Provider Family Medicine; Visit Provider Family Medicine
DX: M25.511 Pain in right shoulder (principal); M25.512 Pain in left shoulder
CPT/HCPCS: 73030

== ENCOUNTER → 2023-07-29 | Outpatient (CLI) | payer MEDICARE, OTHER, SELFPAY ==
[2023-07-29 13:12] LABS: CPK Total, Creatine Kinase 70 U/L (39-308); Magnesium 2.2 mg/dL (1.6-2.6)
== END | disposition home or self-care (01) ==
LOC: BFHLAB 11:01
PROVIDERS: PCP Family Medicine; Referring Provider Family Medicine; Visit Provider Family Medicine
DX: R35.1 Nocturia (principal); R25.2 Cramp and spasm
CPT/HCPCS: 36415; 82550; 83735

== ENCOUNTER 2023-10-10 06:04 | Day surgery (SDC) | payer MEDICARE, OTHER, SELFPAY ==
--- NOTE | 2023-10-02 13:36 | EKG12_ITS ---
Test Reason : PRE OP Blood Pressure : / mmHG Vent. Rate : 078 BPM Atrial Rate : 078 BPM P-R Int : 192 ms QRS Dur : 076 ms QT Int : 364 ms P-R-T Axes : 000 -06 055 degrees QTc Int : 414 ms Normal sinus rhythm Low voltage QRS Borderline ECG Confirmed by Nixon Frausto ([id number]), acquisitions editor LILLY LIANG ([id number]) on 10/06/2023 9:01:10 AM Referred By: Greg Gaona Confirmed By:Nixon Frausto
[2023-10-03 15:56] LABS: Hematocrit 41.7 % (40-54); Hemoglobin 13.7 g/dL (13.0-16.5); Mean Corp Hgb Conc 32.9 g/dL (32-36); Mean Corpuscular Hgb 29.4 pg (27.0-32.0); Mean Corpuscular Volume 89.5 fL (80-94); Mean Platelet Vol. 10.4 fl (6.2-12.0); Platelet Count 254 K/mm3 (150-450); RBC Distribution Width CV 13.9 % (11.6-14.6); Red Blood Count 4.66 M/mm3 (4.6-6.2); White Blood Count 8.5 K/mm3 (4.4-11.0)
[2023-10-03 16:05] LABS: Hemoglobin A1c 7.7 % (3.8-5.6)
[2023-10-03 16:14] LABS: Anion Gap 4 (5-15); BUN 17 mg/dL (7-18); Calcium,Total 9.4 mg/dL (8.5-10.1); Chloride 106 mmol/L (98-107); EST Glomerular Filtration Rate 78 mL/min (>60); Est Glom Filt Rate - Afr Amer 94 mL/min (>60); Glucose 164 mg/dL (74-106); Potassium 4.1 mmol/L (3.5-5.1); Sodium Level 138 mmol/L (136-145)
[2023-10-10] VITALS (12 sets, daily range): BP systolic 106–134; BP diastolic 62–92; PULSE 73–82; RESP 16–20; TEMP 36.1–37.1; O2SAT 90–96; BMI 39.2
--- NOTE | 2023-10-10 06:26 | PCM.HP.BLA ---
History and Physical Date of Admission: 10/10/23 Visit Reasons: Hernia Chief Complaint: hernia Is patient in pain?: No Allergies No Known Allergies Allergy (Verified 09/23/23 14:18) Medications ?Medication ?Instructions ?Recorded ?Confirmed ?Type albuterol sulfate 90 mcg/actuation 2 puff inhalation Q6H PRN PRN Sob 01/28/14 09/23/23 History aerosol inhaler &/Or Wheezing budesonide-formoterol HFA 160 2 puff inhalation BID 01/28/14 09/23/23 History mcg-4.5 mcg/actuation aerosol inhaler metformin 500 mg tablet 500 mg PO DAILY 01/28/14 09/23/23 History oxycodone-acetaminophen 5 mg-325 1 tab PO QHS PRN PRN Pain 01/28/14 09/23/23 History mg tablet insulin regular human 100 unit/mL 1 sliding scale dose subcut UD 03/26/18 09/23/23 History injection solution (Humulin R Regular U-100 Insulin) oxfhindu-hjhnwib-ino-iron 3 1 tab PO DAILY 04/01/19 09/23/23 History mg-folic 200 mcg-phytosterol 400 mg tablet nitroglycerin 0.4 mg sublingual 0.4 mg sublingual .COMPLEX PRN 11/23/20 09/23/23 Rx tablet Chest Pain #25 tabs insulin NPH isoph U-100 human 100 100 unit subcut BID 08/23/21 09/23/23 History unit/mL (3 mL) subcutaneous pen (Humulin N NPH U-100 Insulin KwikPen) aspirin 81 mg tablet,delayed 81 mg PO DAILY 01/24/22 09/23/23 History release (Adult Aspirin Regimen) empagliflozin 10 mg tablet 10 mg PO DAILY 02/21/22 09/23/23 History (Jardiance) tamsulosin 0.4 mg capsule (Flomax) 0.4 mg PO DAILY 04/18/22 09/23/23 History furosemide 40 mg tablet 40 mg PO DAILY #90 tabs 05/22/22 09/23/23 Rx atorvastatin 80 mg tablet 80 mg PO QHS #90 tabs 06/20/22 09/23/23 Rx losartan 50 mg tablet 50 mg PO DAILY #90 tabs 07/04/22 09/23/23 Rx potassium chloride 20 mEq 40 meq (2 x 20 mEq) PO DAILY #180 07/04/22 09/23/23 Rx tablet,extended release tabs carvedilol 25 mg tablet 25 mg PO BID #180 tabs 07/29/22 09/23/23 Rx clopidogrel 75 mg tablet (Plavix) 75 mg PO QDAY #90 tabs 07/29/22 09/23/23 Rx zolpidem 5 mg tablet 10 mg PO QHS PRN Insomnia 05/05/23 09/23/23 History gabapentin 100 mg capsule 300 mg PO QHS 05/19/23 09/23/23 History PFSH Medical History (Updated 05/19/23 @ 15:21 by Osmany Eckert) Umbilical hernia BiPAP (biphasic positive airway pressure) dependence Loss of hearing Bladder disease Dyspnea on exertion Wears glasses Insulin dependent diabetes mellitus Arthritis High cholesterol Dietary restriction Non-smoker CPAP (continuous positive airway pressure) dependence Asthma Shortness of breath on exertion History of edema History of echocardiogram History of stress test Hypertension Cardiology follow-up encounter History of heart attack Nonrheumatic aortic (valve) stenosis Pure hypercholesterolemia Essential hypertension Chronic systolic congestive heart failure History of myocardial infarction Diastolic dysfunction Asthma Nephrolithiasis Osteoarthritis Atherosclerosis of [place] coronary artery of [place] heart without angina pectoris Cardiomyopathy, ischemic Diabetes mellitus, type 2 Hypertension Surgical History (Updated 05/19/23 @ 15:21 by Osmany Eckert) H/O right wrist surgery Hx of colonoscopy History of cystoscopy History of fasciotomy Presence of stent in coronary artery (~03/2010) Postsurgical percutaneous transluminal coronary angioplasty (PTCA) status History of carpal tunnel surgery History of back surgery History of elbow surgery Family History Father Myocardial infarction Social History Smoking Status: Never smoker alcohol intake: current alcohol intake frequency: holidays/special occasions only substance use type: does not use diet: diabetic caffeine: Yes Type: carbonated beverages HPI HPI HPI: 73-year-old gentleman returns to discuss a umbilical hernia. He is on clopidogrel therapy. Doing a history and physical for his colonoscopy I noted an incarcerated umbilical hernia with thinning of the skin. The patient was hesitant to come off of his clopidogrel for a week. We discussed maybe holding it just for 3 days preoperatively. His colonoscopy of May 23, 2023 demonstrated hemorrhoids. The remainder of the colon was normal. The patient is denying any acute changes in his general health currently. He presents now because of his umbilical hernia. He has had it for an extended period of time. As previously noted I was concerned about the thinning of his skin. He states that when he had left wrist surgery that there was some problems with anesthesia. He was post to bring a pink slip notification instructions with him but forgot but will be able to drop that off so we understand more about that particular concern. He does have 4 coronary stents and is on clopidogrel therapy. Previously I discussed with him holding that medication and he is now agreeable if needed. ROS General General: No weight change, appetite, fatigue, colon cancer, breast cancer or weakness HEENT HEENT: Yes eye surgery; No difficulty swallowing, eye injury, swollen glands or hoarseness Endo Endocrine: Yes diabetes mellitus; No thyroid disease, thyroid cancer, Hair loss, heat intolerance or cold intolerance Skin Skin: No rash or changing moles Musc Musculoskeletal: Yes arthritis; No back problems, rheumatoid arthritis, gout or joint pain Cardio Cardiovascular: Yes heart disease, heart attack and heart stent; No murmur, pacemaker, atrial fibrillation, high blood pressure, palpitations, shortness of breat with exertion or chest pain Psych Psychiatric: No depression, anxiety or hearing voices Resp Respiratory: Yes shortness of breath, Yes sleep apnea, No cough, No COPD, Yes asthma, No emphysema and No wheezing Gastro Gastrointestinal: No abdominal pain, No nausea or vomiting, Yes diarrhea, No constipation, No blood in stool, No acid reflux, No hemorrhoids, No ulcers, No gallbladder problem and No black,tarry stools Tyrell Hematologic: Yes blood thinners, No blood disorders, No bleeding, No anemia and No blood clots Neuro Neurologic: No system reviewed and no additional complaints, except as documented, No as per HPI, No abnormal gait, No abnormal hearing, No abnormal movements, No abnormal speech, No behavioral changes, No burning sensations, No confusion, No convulsions, No disequilibrium, No dizziness, No localized weakness, No frequent falls, No headache(s), No lack of coordination, No loss of vision, No memory loss, No numbness, No other visual disturbances, No radicular pain, No restless legs, No sensory deficit, No syncope, No tingling, No tremor(s), No weakness and No other Exam Const General: cooperative and no acute distress Nutritional Appearance: obese [facility] Head: normal to inspection Eyes General: appearance normal, both eyes and all related structures Neck Neck: normal visual inspection Chest Chest palpation & inspection: normal inspection of the chest Resp Other: Slightly diminished respiratory excursion. Clear throughout somewhat diminished in the bases. Cardio Rate: regular rate Rhythm: regular rhythm GI Other: Protuberant abdomen. Fixed umbilical hernia which I measured to be 11 cm in height 9 cm diameter. Thinning of the skin. No ulcerations. Not reducible completely incarcerated. Abdomen has some other areas of superficial excoriation which the patient states is secondary to dog scratches. Musc Cervical Spine: normal cervical lordosis Skin Other: Superficial dog scratches left dorsal forearm and epigastric abdomen Neuro General: patient alert, patient awake and patient oriented x3 Extrem Other: 1-2+ nonpitting bilateral lower extremity swelling. Psych Appearance: grossly normal Assessment and Plan Assessment and Plan (1) Hernia: (2) Incarcerated umbilical hernia: Status: Acute Plan: More challenging 73-year-old gentleman. I instructed him to protect his skin and to avoid any further dog scratches as it could cause cancellation of his procedure. The thinning of his umbilical skin is of concern and I would not want him to get an ulcerated area as that would significantly complicate her hernia repair. Because of his body habitus and bulbous abdomen I am offering him a hybrid laparoscopic and open approach. Dissipate tract approach to help resect some of the excess umbilical skin and to help with the dissection. Then we will convert to a laparoscopic procedure with anticipated placement of mesh and a bilateral transabdominal plane block. I have asked him to hold his clopidogrel 3 days preoperatively. We will need to give the information that he has on hand regarding previous anesthesia instructions. He is aware of the technique, benefit, risk, alternatives. He is very much aware that there are potential risk and complications with this procedure. I believe that in a controlled setting he will have less risk particularly regarding ulceration of the skin and skin breakdown as well as control of his anticoagulation. He states that Leah is in favor and we will proceed as noted. I appreciate the opportunity of assisting with his surgical care. Copy: Dr. Mau Gaona M.D., F.A.C.S I have examined the patient and the H&P has been reviewed. There are no clinical changes since date of exam. Greg Gaona M.D., F.A.C.S.
--- NOTE | 2023-10-10 06:26 | EX.PCM.DISCH ---
Discharge Instructions Procedure General Surgery Diet Discharge Diet: Light diet - advance as tolerated (if you have questions about your diet instructions, please talk to you doctor.) Activity Discharge Activity: May Not Drive (for 3-5 days or while taking narcotic pain medicine.) May shower in (days): 1 Lifting Restrictions: 10 pounds Dressing / Incision Call your doctor if your incision/area has: Continuous Slow Oozing, Sudden Increased Bleeding, Increased Pain/ Swelling, Increased Redness and Foul Smelling Discharge Call your doctor if you observe: Fever of 101 or Higher Suture Line Care: Avoid Pulling/Pushing and Avoid Pinching/Bending Additional Dressing/Incision Instructions:: Change or remove dressing in 4 days. Leave steri-strips in place for 1 week. Follow Up Care Please Follow Up With: Greg Gaona MD When: Call [phone] to make an appointment to be seen in about 10 days. Test Results: Test results from this visit will be discussed in further detail at your follow-up appointment, if applicable. Discharge Plan Admission Attending Provider: Greg Gaona Primary Care Provider: Mau Tovar Instructions Print Language: Upper Sorbian Discharge Orders/Prescriptions Prescriptions: No Action Humulin R Regular U-100 Insuln 100 unit/mL solution 1 sliding scale dose SC UD Humulin N NPH Insulin KwikPen 100 unit/mL (3 mL) insulin pen 100 unit SC BID az-Md-drt-nfnt-wjeud-ytwuuxivr 3-200-400 mg-mcg-mg tablet 1 tab PO DAILY zolpidem 5 mg tablet 10 mg PO QHS PRN (Reason: Insomnia) Jardiance 10 mg tablet 10 mg PO DAILY metformin 500 MG tablet 500 mg PO DAILY Patient Comments: Diabetes oxycodone-acetaminophen 1 TABLET tablet 1 tab PO QHS PRN PRN (Reason: Pain) Patient Comments: Pain albuterol sulfate 1 PUFF inhaler 2 puff INHALATION Q6H PRN PRN (Reason: Sob &/Or Wheezing) Patient Comments: Shortness of breath budesonide-formoterol 1 INHALER inhaler 2 puff INHALATION BID Patient Comments: COPD tamsulosin [Flomax] 0.4 mg Capsule 0.4 mg PO DAILY gabapentin 100 mg capsule 400 mg PO TID Patient Comments: take 1 to 3 capsules at bedtime for PAIN CONTROL nitroglycerin 0.4 mg tablet, sublingual 0.4 mg SUBLINGUAL .COMPLEX PRN (Reason: Chest Pain) Qty: 25 3RF Rx Instructions: 0.4 mg SUBLINGUAL as needed q 5 minutes up to 3 times total per episode of chest pain: if no relief, call 911 aspirin [Adult Aspirin Regimen] 81 mg tablet,delayed release (DR/EC) 81 mg PO DAILY furosemide 40 mg tablet 40 mg PO DAILY Qty: 90 3RF atorvastatin 80 mg tablet 80 mg PO QHS Qty: 90 3RF potassium chloride 20 mEq tablet extended release 40 meq PO DAILY Qty: 180 3RF losartan 50 mg tablet 50 mg PO DAILY Qty: 90 3RF carvedilol 25 mg tablet 25 mg PO BID Qty: 180 3RF clopidogrel [Plavix] 75 mg tablet 75 mg PO QDAY Qty: 90 3RF Patient Comments: STOP 3 DAYS PRIOR Other Ambulatory Orders: 12 Lead EKG (Routine) Timeframe: 20231002 Location: None Selected Ordered By: Dr. Greg Gaona Referrals / Follow Up: Mau Tovar DO [Primary Care Provider] - Disposition Disposition (needs filled in before D/C Order can be placed): Home, Self Care
[2023-10-10] MEDS: Lactated Ringers 1,000 ML 15 ML IV (06:51)
--- NOTE | 2023-10-10 07:25 | PCM.PRE.AN2 ---
ASA Classification* ASA Classification ASA Classification: 3 Assessment & Plan Anesthesia* Anesthesia Assessment Anesthesia Assessment: Discussed sedation and/or anesthesia options, risks, benefits, and alternatives with patient/parents/legal guardian/POA. Questions invited. The patient/parents/legal guardian/POA seems to understand and agrees to proceed with anesthesia plan. Reviewed the physical assessment, medical history, allergy history and patient home medications list prior to surgery/procedure/anesthetic and documented any changes. Performed airway and anesthesia risk assessments. Anesthesia Type Anesthesia Type: General (see written pre anesthesia record for full assessment) Anesthesia Focused Assessment* Temperature: 98.0 F Pulse Rate: 82 Blood Pressure: 112/62 Respiratory Rate: 16 Pulse Ox: 94 Airway Assessment Mouth opens: >3 cm Mallampati Score: IV (previous FO< failed intubation) Focused Labs Anesthesia Preop lab: CBC WBC 8.5 K/mm3 (4.4-11.0) 10/03/23 14:50 RBC 4.66 M/mm3 (4.6-6.2) 10/03/23 14:50 Hgb 13.7 g/dL (13.0-16.5) 10/03/23 14:50 Hct 41.7 % (40-54) 10/03/23 14:50 Plt Count 254 K/mm3 (150-450) 10/03/23 14:50 CHEMISTRY Potassium 4.1 mmol/L (3.5-5.1) 10/03/23 14:50 Sodium 138 mmol/L (136-145) 10/03/23 14:50 Magnesium 2.2 mg/dL (1.6-2.6) 07/29/23 11:01 BUN 17 mg/dL (7-18) 10/03/23 14:50 Creatinine 1.00 mg/dL (0.70-1.30) 10/03/23 14:50 Glucose 164 mg/dL (74-106) H 10/03/23 14:50 POC Glucose 121 mg/dL (74-106) H 05/23/23 07:06 TSH 1.69 uIU/mL (0.358-3.74) 10/17/16 09:06 COAG PT 13.1 SECONDS (11.9-14.4) 06/15/12 14:06 Pre-Assessment Diagnosis/Proposed Procedure Planned Operative Procedure(s): LAP OPEN HYBRID UMN HERNIA REPAIR WITH MESH Anesthesia History 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 When Was Last Pacemaker Check QUESTION #4 FULL TEXT: You/Your Family Experience fever (hyperthermia) with Anesthesia Last Oral Intake Last Oral intake: Last Oral Intake NPO since 22:30 10/10/23 06:40 Meds taken in AM with sips of water? Meds patient instructed to take am of surgery PONV PONV - water conservationist: PONV - water conservationist Female No 10/01/23 13:12 HX of Motion Sickness No 10/01/23 13:12 HX of N/V After Surgery No 10/01/23 13:12 Non-Smoker Yes 10/01/23 13:12 Duration of Surgery greater Yes 10/01/23 13:12 than 60 minutes Number of Risk Factors 2 10/01/23 13:12 PONV Score Moderate Risk 10/01/23 13:12 Height & Weight Height & Weight: Anesthesia: Height & Weight Height 5 ft 10 in 10/10/23 06:40 Weight: 124 kg 10/10/23 06:40 Body Mass Index (BMI) 39.2 10/10/23 06:40 Respiratory Assessment Respiratory Assessment - water conservationist: Respiratory Tract Infection Hx - water conservationist Hx Respiratory Tract Infection No 10/01/23 13:12 STOP Sleep Apnea STOP Sleep Apnea - water conservationist: STOP Sleep Apnea - water conservationist Hx Hypertension Yes: CONTROLLED WITH MED 10/01/23 13:12 Hx Sleep Apnea Yes 10/01/23 13:12 CPAP Yes 10/01/23 13:12 BIPAP No 10/01/23 13:12 Do you snore loudly (louder than talking or can be heard Do you often feel tired/ fatigued/ sleepy during daytime? Has anyone observed you stop breathing during sleep? STOP Results Positive 10/01/23 13:12 QUESTION #5 FULL TEXT : Do you snore loudly (louder than talking or can be heard through closed doors)? 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 Specify any problems Hx of Preganancy in last 3 N/A 10/01/23 13:12 Months Nurse Filling Out Transfusion NBUCHER 10/01/23 13:12 & Questions: Date: 10/01/23 10/01/23 13:12 Time: 13:15 10/01/23 13:12 Patient unable to answer at this time (ie. confused, unrespo /Reproduction History /Reproductive History - water conservationist: /Reproductive Hx- water conservationist Hx Now No 10/01/23 13:12 Gestational Age (in weeks): EDC: Hx Hx Para Hx Section SAB No 10/01/23 13:12 Active Medications Active Medications: Current Medications Generic Name Dose Route Start Last Admin Trade Name Freq PRN Reason Stop Dose Admin Acetaminophen 650 mg 10/10/23 07:18 Acetaminophen 325 Mg Tablet PO Q6H PRN PRN Pain Score 1-10 Hydrocodone Bitart/Acetaminophen 1 - 2 tablet 10/10/23 07:18 Hydrocodone Bitartrate/Apap 5/325 Tablet PO Q4H PRN PRN Pain Score 1-10 Cefazolin Sodium 2 gm/ Sodium 110 mls @ 150 mls/hr 10/10/23 07:30 Chloride IV 10/10/23 08:13 PREOP ONE Lactated Ringer's 1,000 mls @ 15 mls/hr 10/10/23 06:15 10/10/23 06:51 IV 15 mls/hr .Q48H SARITHA Administration PFSH Medical History Diabetes Prostate disease Sleep apnea History of CHF (congestive heart failure) Umbilical hernia BiPAP (biphasic positive airway pressure) dependence Loss of hearing Bladder disease Dyspnea on exertion Wears glasses Insulin dependent diabetes mellitus Arthritis High cholesterol Dietary restriction Non-smoker CPAP (continuous positive airway pressure) dependence Asthma Shortness of breath on exertion History of edema History of echocardiogram History of stress test Hypertension Cardiology follow-up encounter History of heart attack Nonrheumatic aortic (valve) stenosis Pure hypercholesterolemia Essential hypertension Chronic systolic congestive heart failure History of myocardial infarction Diastolic dysfunction Asthma Nephrolithiasis Osteoarthritis Atherosclerosis of [place] coronary artery of [place] heart without angina pectoris Cardiomyopathy, ischemic Diabetes mellitus, type 2 Hypertension Home Medications ?Medication ?Instructions ?Recorded ?Last Taken ?Type albuterol sulfate 90 mcg/actuation 2 puff inhalation Q6H PRN PRN Sob 01/28/14 07/24/14 History aerosol inhaler &/Or Wheezing budesonide-formoterol HFA 160 2 puff inhalation BID 01/28/14 10/10/23 History mcg-4.5 mcg/actuation aerosol inhaler metformin 500 mg tablet 500 mg PO DAILY 01/28/14 10/09/23 History oxycodone-acetaminophen 5 mg-325 1 tab PO QHS PRN PRN Pain 01/28/14 05/22/23 History mg tablet insulin regular human 100 unit/mL 1 sliding scale dose subcut UD 03/26/18 10/10/23 History injection solution (Humulin R Regular U-100 Insulin) hicbuwdt-ryoqcwx-nxy-iron 3 1 tab PO DAILY 04/01/19 05/22/23 History mg-folic 200 mcg-phytosterol 400 mg tablet nitroglycerin 0.4 mg sublingual 0.4 mg sublingual .COMPLEX PRN 11/23/20 Unknown Rx tablet Chest Pain #25 tabs insulin NPH isoph U-100 human 100 100 unit subcut BID 08/23/21 10/10/23 History unit/mL (3 mL) subcutaneous pen (Humulin N NPH U-100 Insulin KwikPen) aspirin 81 mg tablet,delayed 81 mg PO DAILY 01/24/22 09/30/23 History release (Adult Aspirin Regimen) empagliflozin 10 mg tablet 10 mg PO DAILY 02/21/22 10/03/23 History (Jardiance) tamsulosin 0.4 mg capsule (Flomax) 0.4 mg PO DAILY 04/18/22 10/09/23 History furosemide 40 mg tablet 40 mg PO DAILY #90 tabs 05/22/22 10/09/23 Rx atorvastatin 80 mg tablet 80 mg PO QHS #90 tabs 06/20/22 10/09/23 Rx losartan 50 mg tablet 50 mg PO DAILY #90 tabs 07/04/22 10/10/23 Rx potassium chloride 20 mEq 40 meq (2 x 20 mEq) PO DAILY #180 07/04/22 10/09/23 Rx tablet,extended release tabs carvedilol 25 mg tablet 25 mg PO BID #180 tabs 07/29/22 10/10/23 Rx clopidogrel 75 mg tablet (Plavix) 75 mg PO QDAY #90 tabs 07/29/22 10/07/23 Rx zolpidem 5 mg tablet 10 mg PO QHS PRN Insomnia 05/05/23 10/09/23 History gabapentin 100 mg capsule 400 mg PO TID 05/19/23 10/10/23 History Allergy/AdvReac Type Severity Reaction Status Date / Time No Known Allergies Allergy Verified 10/10/23 06:40 Family History Father Myocardial infarction Surgical History History of coronary artery stent placement History of cardiac catheterization H/O right wrist surgery Hx of colonoscopy History of cystoscopy History of fasciotomy Presence of stent in coronary artery (~03/2010) Postsurgical percutaneous transluminal coronary angioplasty (PTCA) status History of carpal tunnel surgery History of back surgery History of elbow surgery Social History Smoking Status: Never smoker alcohol intake: current alcohol intake frequency: holidays/special occasions only substance use type: does not use diet: diabetic caffeine: Yes Type: carbonated beverages Review of Systems (Anesthesia) ROS Narrative System reviewed and no additional complaints, except as documented.
--- NOTE | 2023-10-10 07:30 | HERN_PTH ---
PATIENT: CLAY MONTEJO LOC: [facility] [place] U#:[id number] AGE/SX: 73/M ROOM: RE10/10/[address]: Dr. Greg Gaona MD : [id number] BED: DIS: 10/10/2023 SPEC #: [id number] RECD: 10/10/23 10:05 STATUS: RACHAEL TONI #: [id number] HARRY: 10/10/23 07:[address]: Greg Gaona DEPT: SURGICAL PATHOLOGY RECD BY: Litzy Enriquez ENTERED: 10/10/23 11:54 SP TYPE: Hernia OTHR DR: Dr. Mau Tovar, Tissues: HERNIA Procedures: Surgery Specimen Level II HEADER OPERATION: Hernia, hybrid/open, laparoscopic incarcerated central umbilical repair with mesh with TAP block PRE-OP DIAGNOSIS: Incarcerated umbilical hernia TISSUE SUBMITTED: Hernia sac and contents MICROSCOPIC DIAGNOSIS Hernia sac and contents: Fibroadipose and fibroconnective tissue, consistent with hernia sac. Skin, no pathologic diagnosis. / 10/13/2023 MICROSCOPIC DESCRIPTION Slides are reviewed. GROSS DESCRIPTION Received in fixative is one container labeled with the patient's name and designated Hernia sac and contents. The specimen consists of a piece of yellow adipose tissue measuring 10.0 x 8.0 x 5.0cm. A piece of tissue is also noted with measuring 7.0 x 1.5 x 0.2cm. Sections reveal yellow adipose cut surfaces without any mass lesions. Composition Siding Worker sections are submitted in two cassettes. PB/ 10/10/2023 TC:5 CPT:31509
[2023-10-10] MEDS: Cefazolin 2 GM in 0.9% Normal Saline (100mL Bag) 100 ML IV (07:37)
[2023-10-10 08:06] LABS: Bedside Glucose 98 mg/dL (74-106)
[2023-10-10] MEDS: 0.9% Normal Saline (Pres. free 10 ML Vial (08:38)
[2023-10-10] MEDS: BUPIVACAINE LIPOSOME/PF 20 ML VIAL OPERA.SITE (08:38)
[2023-10-10] MEDS: Bupivacaine 0.25% 30 ML Vial (08:38)
--- NOTE | 2023-10-10 09:29 | PCM.OPRPT ---
Report of Operation Date of Procedure: 10/10/23 Pre-Operative Diagnosis: Incarcerated ventral umbilical hernia Post-Operative Diagnosis: Same Surgery/Procedure Performed:: Incarcerated 3 cm diameter ventral umbilical hernia with [address] mesh Laparoscopic transabdominal plane block Description of Surgical Findings:: Timeout informed consent was obtained. 73-year-old gentleman was taken to the operating placed supine on the table underwent complicated GlideScope and fiberoptic scope intubation. Ancef 3 g were given intravenously weight-based. The abdomen was sterilely prepped and draped. Ioban draping was used as well. There was a large amount of omentum incarcerated within a bulging ventral umbilical hernia that was nonreducible. I made a transverse elliptical excision to take out some of the thinnest portion of the skin. Then sharp and blunt dissection performed circumferentially around electrocautery as a form for hemostasis the defect itself measured approximately 3 cm the hernia sac was incised and then the omentum was serially transected with Cindy clamps and 0 chromic sutures. The sac and incarcerated contents were submitted to specimen. Several additional sutures were required to get complete hemostasis then from the omentum. Placed that back within the abdomen and placed in a sound catheter and then laparoscopically guided today throughout bilateral transabdominal plane block with 0.5% Marcaine mixed with 20 cc of Exparel diluted to 100 cc with saline. Having achieved that I then created a retrorectus space through the open approach. I was able to close the peritoneum with a running 3-0 Vicryl. I placed a [address] mesh into the retrorectus space. It opened up very cleanly and nicely. I secured the tails with interrupted #1 Nurolon. I closed the fascia transversely with simple sutures of #1 Nurolon capturing the anterior portion of the mesh. The CAROLINE fascial area was anesthetized with the local anesthetic as well. The skin was then approximated by closing the space with interrupted 3-0 Vicryl's. I did use hemoblast to assure that this large wall area where the hernia had occupied was completely hemostatic. The subdermal tissues approximated with 3-0 Vicryl. Skin edges approximated subicular 4-0 Monocryl. Surgical glue was applied followed by cotton balls Telfa bulky dry dressing and OpSite. Sponge and instrument and needle counts were reported to the surgeon to be correct. Specimens incarcerated omentum within the hernia sac and excess skin. Drains none. Blood loss minimal. The patient was taken to the recovery room in satisfied condition with apparent complication Greg Gaona M.D., F.A.C.S. Surgeon: Greg Gaona Type of Anesthesia: General and Local Anesthesiologist: Chan Mishra
[2023-10-10 10:07] LABS: Bedside Glucose 117 mg/dL (74-106)
[2023-10-10 10:07] LABS: Bedside Glucose 77 mg/dL (74-106)
[2023-10-10] MEDS: Ketorolac 15 MG/ML Vial IV (10:08)
--- NOTE | 2023-10-10 10:11 | PCM.POST.ANE ---
Anesthesia: Postop Eval I Current Vital Signs Temperature: 98.8 F Pulse Rate: 80 Blood Pressure: 130/85 Respiratory Rate: 18 Pulse Ox: 93 Oxygen Delivery Method: Venturi Mask Oxygen Flow Rate (L/min): 6 Assessment Airway patent: Yes Spontaneous unlabored respirations: Yes Mental status: Awake and Calm nausea: No Vomiting: No Anesthesia Complication: No Fluid Hydration Crystalloid volume administer (ml): 1,400 Total IV fluid infused: 1,400 Progress Note Anesthesia document: Postop Eval 1 completed: Yes
--- NOTE | 2023-10-10 12:15 | SUR.PHASEII ---
1150 Jimenez Covarrubias at bedside , discharge orders received.
--- NOTE | 2023-10-10 16:13 | CHAPLAIN ---
Type of Pastoral Visit _x__ Initial Visit ___ Follow-up Visit ___ On-call Visit ___ General Patient Visit ___ Spiritual Assessment ___ Family Conference ___ Bereavement ___ Rapid Response ___ Code Blue ___ Other (describe below) Pastoral Care Referral From _x__ Patient _x__ Family ___ Nurse ___ Physician ___ Publishing Systems Analyst ___ Cement Paver ___ Other (describe below) Sacrament/Intervention ___ Active listening ___ Anointing ___ Restorationism ___ Bereavement ___ Communion ___ Shavon exploration ___ ___ Life review _x__ Prayer ___ Reconciliation ___ Sacrament of Sick _x__ Supportive presence ___ Wedding ___ Other (describe below) Pastoral Comments post op prayer and offer of support given; family given time to talk and express feelings today as well; prayer and presence received
--- NOTE | 2023-10-10 16:28 | POSTOPAN2_ITS ---
Anesthesia Postop Eval I Sum Postop Eval Completion status Anesthesia document: Postop Eval 1 completed: Yes Anesthesia Postop Eval I Summary Anesthesia Postop Eval I Summary: Anesthesia Postop Eval I: Assessment Summary Airway patent Yes 10/10/23 10:12 MEDICAL TECHNOLOGIST CHIEF.MDOT Spontaneous unlabored Yes 10/10/23 10:12 MEDICAL TECHNOLOGIST CHIEF.MDOT respirations Mental status Awake,Calm 10/10/23 10:12 MEDICAL TECHNOLOGIST CHIEF.MDOT nausea No 10/10/23 10:12 MEDICAL TECHNOLOGIST CHIEF.MDOT Vomiting No 10/10/23 10:12 MEDICAL TECHNOLOGIST CHIEF.MDOT Anesthesia Postop Eval I: Fluid Summary Crystalloid volume administer 1,400 10/10/23 10:12 MEDICAL TECHNOLOGIST CHIEF.MDOT (ml) Colloids volume administered ( ml) Blood Product volume administered (ml) Total IV fluid infused 1,400 10/10/23 10:12 MEDICAL TECHNOLOGIST CHIEF.MDOT Anesthesia Postop Eval I: Summary Notes Anesthesia Complication No 10/10/23 10:12 MEDICAL TECHNOLOGIST CHIEF.MDOT Anesthesia Complication Comment: Post-operative progress note Anesthesia: Postop Eval II Evaluation Mental status: Awake and Calm Pain Level: 1 nausea: No Vomiting: No Complications Anesthesia Complication: No
--- NOTE | 2023-10-10 16:28 | PCM.POSTANE2 ---
Anesthesia Postop Eval I Sum Postop Eval Completion status Anesthesia document: Postop Eval 1 completed: Yes Anesthesia Postop Eval I Summary Anesthesia Postop Eval I Summary: Anesthesia Postop Eval I: Assessment Summary Airway patent Yes 10/10/23 10:12 FORM [email or web address].MDOT Spontaneous unlabored Yes 10/10/23 10:12 FORM WORKER.MDOT respirations Mental status Awake,Calm 10/10/23 10:12 FORM WORKER.MDOT nausea No 10/10/23 10:12 FORM WORKER.MDOT Vomiting No 10/10/23 10:12 FORM WORKER.MDOT Anesthesia Postop Eval I: Fluid Summary Crystalloid volume administer 1,400 10/10/23 10:12 FORM WORKER.MDOT (ml) Colloids volume administered ( ml) Blood Product volume administered (ml) Total IV fluid infused 1,400 10/10/23 10:12 FORM WORKER.MDOT Anesthesia Postop Eval I: Summary Notes Anesthesia Complication No 10/10/23 10:12 FORM WORKER.MDOT Anesthesia Complication Comment: Post-operative progress note Anesthesia: Postop Eval II Evaluation Mental status: Awake and Calm Pain Level: 1 nausea: No Vomiting: No Complications Anesthesia Complication: No
== END 2023-10-10 12:16 | disposition home or self-care (01) ==
LOC: SDC 06:05 → AC 06:06
PROVIDERS: Anesthesiology; PCP Family Medicine; Referring Provider Surgery; Visit Provider Surgery
PROC: 0WQF4ZZ Repair Abdominal Wall, Percutaneous Endoscopic Approach (ICD-10-PCS; CPT 49594; principal; 2023-10-10 07:10)
DX: K42.0 Umbilical hernia with obstruction, without gangrene (principal); I11.0 Hypertensive heart disease with heart failure; I50.22 Chronic systolic (congestive) heart failure; Z79.4 Long term (current) use of insulin; E11.9 Type 2 diabetes mellitus without complications; Z79.84 Long term (current) use of oral hypoglycemic drugs; Z95.5 Presence of coronary angioplasty implant and graft; Z79.02 Long term (current) use of antithrombotics/antiplatelets; E78.00 Pure hypercholesterolemia, unspecified; I25.10 Atherosclerotic heart disease of native coronary artery without angina pectoris; Z79.51 Long term (current) use of inhaled steroids; Z79.899 Other long term (current) drug therapy; J45.909 Unspecified asthma, uncomplicated; Z79.01 Long term (current) use of anticoagulants; E66.9 Obesity, unspecified
CPT/HCPCS: 49594; 00832; 36415; 80048; 82962; 83036; 85027; 88302; 93005; J7120; C1781; J2405; J3490

== ENCOUNTER → 2024-03-22 | Outpatient (CLI) | payer MEDICARE, OTHER, SELFPAY ==
[2024-03-22 18:00] LABS: Hemoglobin A1c 7.3 % (3.8-5.6)
[2024-03-22 19:02] LABS: AST(SGOT) 13 U/L (15-37); Alanine Aminotransfer ALT/SGPT 44 U/L (16-61); Albumin, Serum 3.6 g/dL (3.2-5.0); Alkaline Phosphatase 138 U/L (45-117); Bilirubin, Direct 0.11 mg/dL (0.00-0.30); Cholesterol 117 mg/dL (200); Globulin 3.6 g/dL (2.2-4.2); High Density Lipoprotein 37 mg/dL; PSA,Total - Annual Screen 9.75 ng/mL (0.00-4.00); Protein, Total 7.2 g/dL (6.4-8.2); Triglycerides 139 mg/dL; Very Low Density Lipoprotein 28 mg/dL (5-40)
== END | disposition home or self-care (01) ==
LOC: BFHLAB 15:07
PROVIDERS: PCP Family Medicine; Visit Provider Family Medicine
DX: Z12.5 Encounter for screening for malignant neoplasm of prostate (principal); E11.29 Type 2 diabetes mellitus with other diabetic kidney complication; I25.10 Atherosclerotic heart disease of native coronary artery without angina pectoris
CPT/HCPCS: 36415; 80061; 80076; 83036; 84153; G0103

== ENCOUNTER 2024-06-13 16:42 | Emergency (ER) | payer MEDICARE, OTHER, SELFPAY ==
[2024-06-13 16:42] VITALS: BP 152/79; PULSE 90; RESP 16; TEMP 36.5; O2SAT 99; BMI 40.0
--- NOTE | 2024-06-13 16:53 | EX.ED.DYSGE1 ---
HPI History of Present Illness Chief Complaint: Flank Pain Narrative Narrative: 73-year-old male past medical history of previous kidney stones, presents with left flank pain that has had for the last 2 to 2-1/2 weeks. It is worsening. He is to be in his left flank and back, but now has moved towards the front. He denies any fevers or chills, no nausea or vomiting. No gross hematuria. He states that he has had imaging in the past that showed multiple stones in the left kidney. He saw his primary care provider 2-1/2 weeks ago and has been taking Percocet. Pain has been intermittent, both dull and achy and sharp and stabbing, now radiating towards the front. This feels very similar to his previous ureterolithiasis. It has been a few years since he has had kidney stones/ureteral stones. He has been seen by Dr. Soriano. No exacerbating or alleviating factors. He took 2 Percocet earlier this afternoon without relief of his symptoms. [facility] Medical History Diabetes Prostate disease Sleep apnea History of CHF (congestive heart failure) Umbilical hernia BiPAP (biphasic positive airway pressure) dependence Loss of hearing Bladder disease Dyspnea on exertion Wears glasses Insulin dependent diabetes mellitus Arthritis High cholesterol Dietary restriction Non-smoker CPAP (continuous positive airway pressure) dependence Asthma Shortness of breath on exertion History of edema History of echocardiogram History of stress test Hypertension Cardiology follow-up encounter History of heart attack Nonrheumatic aortic (valve) stenosis Pure hypercholesterolemia Essential hypertension Chronic systolic congestive heart failure History of myocardial infarction Diastolic dysfunction Asthma Nephrolithiasis Osteoarthritis Atherosclerosis of [place] coronary artery of [place] heart without angina pectoris Cardiomyopathy, ischemic Diabetes mellitus, type 2 Hypertension Home Medications ?Medication ?Instructions ?Recorded ?Last Taken ?Type albuterol sulfate 90 mcg/actuation 2 puff inhalation Q6H PRN PRN Sob 01/28/14 07/24/14 History aerosol inhaler &/Or Wheezing budesonide-formoterol HFA 160 2 puff inhalation BID 01/28/14 10/10/23 History mcg-4.5 mcg/actuation aerosol inhaler metformin 500 mg tablet 500 mg PO DAILY 01/28/14 10/09/23 History oxycodone-acetaminophen 5 mg-325 1 tab PO QHS PRN PRN Pain 01/28/14 05/22/23 History mg tablet insulin regular human 100 unit/mL 1 sliding scale dose subcut UD 03/26/18 10/10/23 History injection solution (Humulin R Regular U-100 Insulin) koatqpoc-gzoxvmo-mxu-iron 3 1 tab PO DAILY 04/01/19 05/22/23 History mg-folic 200 mcg-phytosterol 400 mg tablet insulin NPH isoph U-100 human 100 100 unit subcut BID 08/23/21 10/10/23 History unit/mL (3 mL) subcutaneous pen (Humulin N NPH U-100 Insulin KwikPen) aspirin 81 mg tablet,delayed 81 mg PO DAILY 01/24/22 09/30/23 History release (Adult Aspirin Regimen) empagliflozin 10 mg tablet 10 mg PO DAILY 02/21/22 10/03/23 History (Jardiance) furosemide 40 mg tablet 40 mg PO DAILY #90 tabs 05/22/22 10/09/23 Rx atorvastatin 80 mg tablet 80 mg PO QHS #90 tabs 06/20/22 10/09/23 Rx losartan 50 mg tablet 50 mg PO DAILY #90 tabs 07/04/22 10/10/23 Rx carvedilol 25 mg tablet 25 mg PO BID #180 tabs 07/29/22 10/10/23 Rx clopidogrel 75 mg tablet (Plavix) 75 mg PO QDAY #90 tabs 07/29/22 10/07/23 Rx zolpidem 10 mg tablet 5 - 10 mg PO QDAY PRN 11/03/23 Unknown History nitroglycerin 0.4 mg sublingual 0.4 mg sublingual .COMPLEX PRN 12/22/23 Unknown Rx tablet Chest Pain #25 tabs gabapentin 400 mg capsule 400 mg PO TID PRN 06/11/24 Unknown History potassium chloride 20 mEq 20 meq PO DAILY 06/11/24 Unknown History tablet,extended release semaglutide 0.25 mg or 0.5 mg (2 0.5 mg subcut QWEEK 06/11/24 Unknown History mg/3 mL) subcutaneous pen injector (Ozempic) Allergy/AdvReac Type Severity Reaction Status Date / Time No Known Allergies Allergy Verified 06/13/24 16:44 Family History Father Myocardial infarction Surgical History Hx of umbilical hernia repair History of coronary artery stent placement History of cardiac catheterization H/O right wrist surgery Hx of colonoscopy History of cystoscopy History of fasciotomy Presence of stent in coronary artery (~03/2010) Postsurgical percutaneous transluminal coronary angioplasty (PTCA) status History of carpal tunnel surgery History of back surgery History of elbow surgery Social History Smoking Status: Never smoker alcohol intake: current alcohol intake frequency: holidays/special occasions only substance use type: does not use diet: diabetic caffeine: Yes Type: carbonated beverages ROS ROS ED ROS Narrative Review of systems positive for left flank pain. No gross hematuria. No fevers or chills, no nausea or vomiting. No exacerbating or alleviating factors. EXAM Physical Exam Narrative Exam Narrative: Afebrile. Vital signs noted. Nontoxic-appearing. Cardiovascular examination reveals a regular rate and rhythm. Lungs are clear to auscultation bilaterally. Abdomen is soft, nontender, and obese without guarding or rebound. No CVA tenderness to percussion, left. Neurological examination nonfocal and nonlateralizing. Const Vital Signs: 06/13/24 16:42 06/13/24 18:32 Temperature 97.7 F L 98.2 F Temperature Source Oral Pulse Rate 90 75 Respiratory Rate 16 16 Blood Pressure 152/79 H 128/74 H Blood Pressure Mean 103 92 Pulse Ox 99 99 Oxygen Delivery Method Room Air MDM MDM MDM Narrative Medical decision making narrative: Differential diagnosis includes but not limited to ureterolithiasis with ureteral colic versus pyelonephritis. I have low suspicion for diverticulitis or any bowel pathology because he does not have any problems with bowel movements. I do feel CT imaging is indicated. CBC, BMP, and UA will be will also be obtained to look for infection. Patient administered 15 mg of Toradol as well as morphine and ondansetron and bolus of normal saline 1 L. I reviewed his laboratory work and he has elevated white count of 11.9 which I think is nonspecific, hemoglobin normal at 15.7, platelet count normal at 258. BMP is grossly unremarkable except for glucose of 171 with a normal anion gap of 10, BUN normal at 14 and creatinine 0.84. Urinalysis shows RBCs 50-100 with 0 WBCs and 1+ amorphous sediment/urate. 0 bacteria. I do not feel that antibiotics are indicated. I reviewed the radiology report of the CT of the abdomen and pelvis without contrast. There is no evidence of obstructing stones, no hydronephrosis. He does have bilateral renal stones/calculi but once again no evidence of hydronephrosis or obstruction. Patient did require an extra dose of morphine prior to discharge. At this point in time, while I am uncertain as to the cause of his left flank pain, it does sound more like ureteral colic. On the radiology report it was noted that he did have prostatic megaly as well. He has Flomax at home which I encouraged him to take again. Additionally, I offered to write him a short prescription for 3 days of Percocet, but he declined and prefers to call his primary care provider tomorrow. He states he does have 1 pill left that he supposed to be taking for severe pain. I feel he can be discharged to follow-up. He and his are agreeable to the plan. Return instructions reviewed. Disposition is discharged home in stable condition. History & Record Review Discussion w/independent historian: Patient and Family Lab Data Attestation: I reviewed the patient's lab results. Labs: Laboratory Results - last 24 hr 06/13/24 06/13/24 17:00 17:01 WBC 11.9 H RBC 5.05 Hgb 15.7 Hct 45.6 MCV 90.3 MCH 31.1 MCHC 34.4 RDW Std Deviation 46.9 H RDW Coeff of Ishan 14.4 Plt Count 258 MPV 10.2 Immature Gran % (Auto) 0.300 Neut % (Auto) 69.9 Lymph % (Auto) 11.6 L [place] % (Auto) 11.3 H Eos % (Auto) 6.5 H Baso % (Auto) 0.4 Absolute Neuts (auto) 8.3 H Absolute Lymphs (auto) 1.38 Nucleated RBC % 0 Sodium 141 Potassium 4.5 Chloride Direct 105 Carbon Dioxide 25.8 Anion Gap 10 BUN 14 Creatinine 0.84 Estim Creat Clear Calc 104.63 Est GFR (MDRD) Non-Af 92 BUN/Creatinine Ratio 16.6 Glucose 171 H Calcium 9.6 Urine Color Yellow Urine Clarity Sl. Cloudy Urine pH 6.0 Ur Specific [place] 1.015 Urine Protein 30 H Urine Glucose (UA) 1000 H Urine Ketones Negative Urine Occult Blood 250 H Urine Nitrite Negative Urine Bilirubin Negative Urine Urobilinogen Normal Ur Leukocyte Esterase Negative Urine RBC 50-100 SEEN Urine WBC 0 SEEN Ur Squamous Epith Cells 0-5 SEEN Amorphous Sediment 1+ URATE Urine Bacteria 0 SEEN Urine Mucus 0 SEEN Radiography Diagnostic Testing: Clinical Impression(s) from Imaging Studies Abdomen/Pelvis CT 06/13/24 17:27 IMPRESSION: 1. Bilateral nonobstructive renal calculi. 2. Prostatomegaly One or more dose reduction techniques were used (e.g., Automated exposure control, adjustment of the mA and/or kV according to patient size, use of iterative reconstruction technique). Reading Location: [facility] Discharge Plan Triage Chief Complaint: Flank Pain ED Provider: Theo Arboleda Dx/Rx/DC Orders Clinical Impression: Left flank pain, Kidney calculi, Microscopic hematuria Instructions: ED Flank Pain, Uncertain Cause, ED Hematuria Prescriptions: No Action Humulin R Regular U-100 Insuln 100 unit/mL solution 1 sliding scale dose SC UD Humulin N NPH Insulin KwikPen 100 unit/mL (3 mL) insulin pen 100 unit SC BID hb-Co-zer-hodw-jmzgk-kqacwhquw 3-200-400 mg-mcg-mg tablet 1 tab PO DAILY Jardiance 10 mg tablet 10 mg PO DAILY zolpidem 10 mg tablet 5 - 10 mg PO QDAY PRN gabapentin 400 mg capsule 400 mg PO TID PRN Ozempic 0.25 mg or 0.5 mg (2 mg/3 mL) pen injector 0.5 mg subcut QWEEK potassium chloride 20 mEq tablet extended release 20 meq PO DAILY metformin 500 MG tablet 500 mg PO DAILY Patient Comments: Diabetes oxycodone-acetaminophen 1 TABLET tablet 1 tab PO QHS PRN PRN (Reason: Pain) Patient Comments: Pain albuterol sulfate 1 PUFF inhaler 2 puff INHALATION Q6H PRN PRN (Reason: Sob &/Or Wheezing) Patient Comments: Shortness of breath budesonide-formoterol 1 INHALER inhaler 2 puff INHALATION BID Patient Comments: COPD aspirin [Adult Aspirin Regimen] 81 mg tablet,delayed release (DR/EC) 81 mg PO DAILY furosemide 40 mg tablet 40 mg PO DAILY Qty: 90 3RF atorvastatin 80 mg tablet 80 mg PO QHS Qty: 90 3RF losartan 50 mg tablet 50 mg PO DAILY Qty: 90 3RF carvedilol 25 mg tablet 25 mg PO BID Qty: 180 3RF clopidogrel [Plavix] 75 mg tablet 75 mg PO QDAY Qty: 90 3RF Patient Comments: STOP 3 DAYS PRIOR nitroglycerin 0.4 mg tablet, sublingual 0.4 mg SUBLINGUAL .COMPLEX PRN (Reason: Chest Pain) Qty: 25 3RF Rx Instructions: 0.4 mg SUBLINGUAL as needed q 5 minutes up to 3 times total per episode of chest pain: if no relief, call 911 Primary Care Provider: Mau Tovar Referrals: Mau Tovar DO [Primary Care Provider] - 1 Day Activity Restrictions/Additional Instructions: Return to the emergency department with increased pain, fever, new or worsening symptoms. Start taking her Flomax again. Call your doctor tomorrow for more narcotic pain medication. Print Language: [place] Disposition Disposition: Home, Self Care
[2024-06-13] MEDS: Ketorolac 15 MG/ML Vial IV (17:07)
[2024-06-13] MEDS: Morphine 4 MG/ML Syringe IV ×2 (17:07→18:29)
[2024-06-13] MEDS: Ondansetron 4 MG/2 ML Vial IV (17:07)
[2024-06-13] MEDS: 0.9% Normal Saline (1000mL) 1,000 ML 999 ML IV (17:07)
[2024-06-13 17:12] LABS: Bacteria 0 SEEN /hpf (None Seen); Mucous, Urine 0 SEEN /hpf (<or=2+); White Blood Cells 0 SEEN /hpf (0-5)
[2024-06-13 17:21] LABS: Absolute Lymphocyte Count 1.38 X10^3/uL (0.83-4.51); Absolute Neutrophil Count 8.3 X10^3/uL (2.0-7.7); Basophil# 0.05 X10^3/uL; Basophil% 0.4 % (0-1); Eosinophil# 0.78 X10^3/uL; Eosinophils% 6.5 % (0-5); Hematocrit 45.6 % (40-54); Hemoglobin 15.7 g/dL (13.0-16.5); Lymphocyte # 1.38 X10^3/ul (0.83-4.51); Lymphocyte % 11.6 % (19-41); Mean Corp Hgb Conc 34.4 g/dL (32-36); Mean Corpuscular Hgb 31.1 pg (27.0-32.0); Mean Corpuscular Volume 90.3 fL (80-94); Mean Platelet Vol. 10.2 fl (6.2-12.0); Monocyte# 1.35 X10^3/uL; Monocyte% 11.3 % (0-10); NRBC Flagged by Analyzer 0 % (0-5); Neutrophil # 8.34 X10^3/uL (2.7-7.7); Neutrophil % 69.9 % (47-70); Platelet Count 258 K/mm3 (150-450); RBC Distribution Width CV 14.4 % (11.6-14.6); RBC Distribution Width SD 46.9 fl (35.1-43.9); Red Blood Count 5.05 M/mm3 (4.6-6.2); White Blood Count 11.9 K/mm3 (4.4-11.0)
[2024-06-13 17:23] LABS: Color, Urine Yellow (Yellow); Glucose, Dipstick 1000 mg/dl (Normal); Ketone-Dipstick Negative (Negative); Leukocyte Esterase-Dipstick Negative /ul (Negative); Nitrite-Dipstick Negative (Negative); Occult Blood-Urine 250 /ul (Negative); Protein-Dipstick 30 mg/dl (Negative); Specific Gravity, Urine 1.015 (1.002-1.030); Urine Bilirubin Dipstick Negative (Negative); Urine Clarity Sl. Cloudy (Clear); Urine Urobilinogen Normal (Normal)
--- NOTE | 2024-06-13 17:27 | CT_ITS ---
PROCEDURE: ABDOMEN/PELVIS WITHOUT CONT REASON FOR EXAM: Kidney stone TECHNIQUE: Abdomen and pelvis CT without intravenous contrast. COMPARISON: 04/17/2022. FINDINGS: Lung bases: Clear Liver: Normal size. No mass. Gallbladder: Unremarkable. Spleen: Normal size. Pancreas: Diffuse fatty atrophy. Adrenals: Unremarkable. Kidneys: Bilateral nonobstructive renal calculi measuring up to 13 mm. No evidence of hydronephrosis. 2.5 cm right hypodense mass which likely represents a cyst. Bladder: Unremarkable. Reproductive Organs: Prostate measures 6.9 cm in transverse dimension Bowel: Unremarkable. Appendix: Normal. Lymph nodes: No suspicious lymph node enlargement. Vasculature: Mild diffuse atherosclerotic calcifications are noted. Peritoneum / Retroperitoneum: No ascites. No free air. Bones: Degenerative changes of the spine. CT/Abdomen/Pelvis without Cont IMPRESSION: 1. Bilateral nonobstructive renal calculi. 2. Prostatomegaly One or more dose reduction techniques were used (e.g., Automated exposure contr ol, adjustment of the mA and/or kV according to patient size, use of iterative reconstruction technique). Reading Location: [facility]
[2024-06-13 17:30] LABS: Amorphous Sediment 1+ URATE; Red Blood Cells-Urine 50-100 SEEN /hpf (0-5); Squamous Epithelial Cells - UA 0-5 SEEN /hpf (0-5)
[2024-06-13 17:38] LABS: Anion Gap 10 (5-15); BUN 14 mg/dL (4-19); BUN/Creat Ratio 16.6 RATIO (10-20); Calcium 9.6 mg/dL (7.6-11.0); Carbon Dioxide 25.8 mmol/L (22.0-29.0); Chloride 105 mmol/L (96-108); Creatinine, Serum 0.84 mg/dL (0.70-1.20); EST Glomerular Filtration Rate 92 (>60); Estimated Creatinine Clearance 104.63 ml/min (50-250); Glucose 171 mg/dL (70-99); Potassium 4.5 mmol/L (3.3-5.1); Sodium Level 141 mmol/L (133-145)
[2024-06-13 18:32] VITALS: BP 128/74; PULSE 75; RESP 16; TEMP 36.8; O2SAT 99
== END 2024-06-13 18:39 | disposition home or self-care (01) ==
PROVIDERS: Emergency Provider Emergency Medicine; PCP Family Medicine; Visit Provider Emergency Medicine
DX: R10.9 Unspecified abdominal pain (principal); I11.0 Hypertensive heart disease with heart failure; I50.22 Chronic systolic (congestive) heart failure; E11.9 Type 2 diabetes mellitus without complications; E78.00 Pure hypercholesterolemia, unspecified; I25.10 Atherosclerotic heart disease of native coronary artery without angina pectoris; R31.29 Other microscopic hematuria; N20.0 Calculus of kidney; Z79.85 Long-term (current) use of injectable non-insulin antidiabetic drugs
CPT/HCPCS: 74176; 80048; 81001; 85025; 96361; 96374; 96375; 96376; 99283; A4216; J2405

== ENCOUNTER → 2025-03-21 | Outpatient (CLI) | payer MEDICARE, OTHER, SELFPAY ==
[2025-03-21 12:12] LABS: Hematocrit 44.1 % (40-54); Hemoglobin 14.7 g/dL (13.0-16.5); Immature Granulocytes Count 0.080 X10^3/uL (0.0-0.0); Mean Corp Hgb Conc 33.3 g/dL (32-36); Mean Corpuscular Volume 89.8 fL (80-94); Mean Platelet Vol. 10.5 fl (6.2-12.0); NRBC Flagged by Analyzer 0 % (0-5); Platelet Count 220 K/mm3 (150-450); RBC Distribution Width CV 13.7 % (11.6-14.6); RBC Distribution Width SD 44.5 fl (35.1-43.9); Red Blood Count 4.91 M/mm3 (4.6-6.2); White Blood Count 7.7 K/mm3 (4.4-11.0)
[2025-03-21 13:06] LABS: AST(SGOT) 20 U/L (<=37); Alanine Aminotransfer ALT/SGPT 28 U/L (<=46); Albumin, Serum 4.1 g/dL (3.4-4.8); Alkaline Phosphatase 123 U/L (40-129); Anion Gap 9 (5-15); BUN 15 mg/dL (4-19); BUN/Creat Ratio 14.7 RATIO (10-20); Calcium,Total 9.6 mg/dL (7.6-11.0); Carbon Dioxide 27.6 mmol/L (21.0-32.0); Chloride 105 mmol/L (98-108); Cholesterol 94 mg/dL (<=200); Globulin 2.5 g/dL (2.2-4.2); Glucose 209 mg/dL (70-99); Low Density Lipoprotein Calc. 39 mg/dL; PSA,Total- Diagnostic 10.30 ng/mL (0.00-4.00); Potassium 4.5 mmol/L (3.3-5.1); Triglycerides 156 mg/dL; Very Low Density Lipoprotein 31 mg/dL (5-40); cholesterol:hdl ratio screen 3.35
[2025-03-21 13:58] LABS: Creatinine, Urine (random) 55.20 mg/dL (39.00-259.00); Microalbumin,Random Urine 14.3 mg/L (<20 mg/L)
== END | disposition home or self-care (01) ==
LOC: BFHLAB 11:11
PROVIDERS: PCP Family Medicine; Visit Provider Family Medicine
DX: E11.29 Type 2 diabetes mellitus with other diabetic kidney complication (principal); E11.3299 Type 2 diabetes mellitus with mild nonproliferative diabetic retinopathy without macular edema, unspecified eye; R97.20 Elevated prostate specific antigen [PSA]; Z51.81 Encounter for therapeutic drug level monitoring
CPT/HCPCS: 36415; 80053; 80061; 82043; 82570; 83036; 84153; 85025